=== PATIENT | female | born 1955 | race Caucasian/White ===

== ENCOUNTER 2024-04-19 16:23 | Inpatient (IN) | payer MEDICARE, SELFPAY ==
[2024-04-19] VITALS (33 sets, daily range): BP systolic 91–162; BP diastolic 52–98; BMI 39.4
--- NOTE | 2024-04-19 10:54 | ED.GENMED ---
History of Present Illness
General
Chief Complaint: Change in Mental Status
Time Seen by Provider: 04/19/24 10:53
History of Present Illness
History of Present Illness:
HPI: Currently, patient is an extremely poor historian therefore I spoke to EMS for history. EMS tells me that the called EMS due to change in mental status. She was tachycardic and became hypotensive despite IV fluids per EMS. The
patient is currently unknown historian.
EXAM:
GENERAL: The patient appears ill/septic, she is encephalopathic, at times she does moan in pain, she is rectally febrile at 103 Fahrenheit, she is tachycardic and mildly hypotensive
HEENT: Somewhat dry oral mucosa
CARDIOVASCULAR: No murmurs, tachycardic heart rate, regular rhythm, No chest wall tenderness
PULMONARY: No respiratory distress, breath sounds are clear and equal
ABDOMEN: Soft with no peritoneal signs, there is some distention noted, suprapubic tube draining small amount of dark yellow urine into the collection bag
NEUROLOGIC: Decreased strength all extremities, she is nonverbal, she has minimal response to sternal rub
PSYCHIATRIC: The patient is currently nonverbal and psych exam is not testable
EXTREMITIES: Nontender, no edema
SKIN: No rash, no lesions
TIME OF INITIAL ENCOUNTER: 11 AM
NUMBER AND COMPLEXITY OF PROBLEMS ADDRESSED AT THE ENCOUNTER
� Chronic conditions affecting care: MS, DVT, anxiety/depression, septic shock related to kidney stone
� Acute Exacerbation and/or Progression of Chronic Illness: This is an acute problem
� Differential Diagnosis includes: UTI, sepsis, bacteremia
AMOUNT AND/OR COMPLEXITY OF DATA TO BE REVIEWED AND ANALYZED
� I performed an independent evaluation of and my interpretation is:
EKG: Sinus 127, nonspecific T abnormality
CT: CT imaging is concerning for 1 cm proximal right ureteral stone along with evidence for pyelonephritis
X-rays: Chest x-ray unremarkable
Laboratory Studies: White count 25.8, VBG shows a pH of 7.43, lactic acid 4,
Other:
� Review of other/old records: I reviewed the discharge summary from this past fall. At that time the patient was treated for septic shock secondary to obstructive uropathy due to kidney stone; I reviewed records further, she
has grown Pseudomonas and Proteus both of which are sensitive to cefepime
� Clinical information was obtained by an independent historian: I spoke to EMS
� Prescriptions/Medications Considered but not given:
� Further testing considered but not performed:
RISK OF COMPLICATIONS AND/OR MORBIDITY OR MORTALITY OF PATIENT MANAGEMENT
� Social determinants of health affecting care: Lives at home
� Discussion with other providers: CT imaging reviewed with Dr. Suarez who recommends stent versus perc tube; hospitalist for admission at 3:30 PM
� Escalation of care including admission/observation vs risk of discharge considered: The patient was given IV fluids upon arrival as she was hypotensive and tachycardic for EMS. She has had septic shock related to UTI/stone�I
have ordered CT imaging of the abdomen pelvis. She has grown Pseudomonas and Proteus in urine in the past�both of which sensitive to cefepime. Will start broad-spectrum antibiotics. CT imaging reviewed with Dr. Suarez.
Phy Exam
Physical Exam
Physical Exam:
See HPI
Course
Orders/Labs/Results
Orders:
Orders
04/19/24 10:57
EKG [Electrocardiogram (*1)] Urgent
Reason for Study: Fatigue / Weakness
EKG- Treatment ONCE
04/19/24 10:58
0.9% Sodium Chloride 1000 ml [Nss] 1,000 ml IV BOLUS
04/19/24 10:59
CT Chest/abd/pel Wo Iv Cont Urgent
Reason For Exam: sepsis; ? recurrence of infected stone, hypoxia, fever, normal cxr
04/19/24 11:00
Electrocardiogram (*1) Urgent
Reason for Study: Other
Other Reason for Exam: sepsis
EKG- Treatment ONCE
CR Chest Portable - 1 View Urgent
Comment:
Reason For Exam: sepsis
Reason Study Needs to be Portable: Patient Unstable
04/19/24 11:22
Acetaminophen [Tylenol/Feverall] 650 mg RECTAL NOW STA
04/19/24 11:23
Complete Blood Count/With Diff Urgent
Comprehensive Metabolic Panel Urgent
Lactic Acid Q4H
Comment: CANCEL 2nd LACTIC ACID IF 1st LACTIC ACID IS LESS THAN 2
Venous Blood Gas Urgent
%Oxygen/Room Air: 2lpm
Blood Culture Q30M
MARILYNN Source: Blood/Venous
Specimen Description:
Blood Culture Q30M
MARILYNN Source: Blood/Venous
Specimen Description:
04/19/24 11:57
Urinalysis Reflex To Culture Urgent
Date Specimen was Collected: 04/19/24
Time Specimen was Collected: 11:55
Urine Microscopic Reflex Cult Urgent
Urine Culture Urgent
MARILYNN Source: U
Specimen Description:
Date Specimen was Collected: 04/19/24
Time Specimen was Collected: 11:55
04/19/24 12:05
0.9% Sodium Chloride 1000 ml [Nss] 1,000 ml IV BOLUS
04/19/24 12:06
0.9% Sodium Chloride 1000 ml [Nss] 1,000 ml IV BOLUS
04/19/24 12:19
Cefepime HCl [Maxipime] 1,000 mg IV NOW STA
04/19/24 12:29
Sterile Water [Sterile Water For Injection] 10 ml .ROUTE .STK-MED ONE
04/19/24 12:30
Sterile Water [Sterile Water For Injection] 20 ml .ROUTE .STK-MED
04/19/24 13:00
Vancomycin [Vancocin] 2,000 mg 0.9% Sodium Chloride 500 ml [Nss] 500 ml IV NOW
04/19/24 14:54
Lactic Acid Q4H
Comment: CANCEL 2nd LACTIC ACID IF 1st LACTIC ACID IS LESS THAN 2
04/19/24 15:45
0.9% Sodium Chloride 1000 ml [Nss] 1,000 ml IV 150 mls/hr
04/19/24 15:47
Hydrocortisone Sod Succinate [Solu-Cortef] 100 mg IV NOW STA
Abnormal Lab Results
04/19/24 04/19/24 04/19/24
11:23 11:57 14:54
WBC 25.8 H 10^3/uL
(4.8-10.8)
Hct 48.0 H %
(37.0-47.0)
MCHC 32.7 L g/dL
(33.0-37.0)
RDW 16.4 H %
(11.5-14.5)
MPV 11.5 H fL
(7.4-10.4)
Abs Immat Gran (auto) 0.3 H 10^3/uL
(0-0.05)
Absolute Neuts (auto) 21.1 H 10^3/uL
(1.4-6.5)
Absolute Monos (auto) 2.4 H 10^3/uL
(0.1-0.6)
Immature Gran % 1.2 H %
(0-0.5)
Neutrophils % 82.0 H %
(42.2-75.2)
Lymphocytes % 6.7 L %
(20.5-51.1)
VBG pO2 76 H mmHg
(30-50)
Carbon Dioxide 20 L mmol/L
(22-30)
BUN 32 H mg/dl
(7-17)
Creatinine 1.9 H mg/dL
(0.6-1.0)
Lactic Acid 4.4 H* mmol/L 4.0 H* mmol/L
(0.7-2.0) (0.7-2.0)
Calcium 10.8 H mg/dl
(8.4-10.2)
Total Bilirubin 3.6 H mg/dl
(0.2-1.3)
AST 60 H U/L
(14-36)
ALT 50 H U/L
(0-35)
Alkaline Phosphatase 212 H U/L
(38-126)
Albumin 3.0 L g/dl
(3.5-5.0)
Ur Occult Blood Reflex 2+ A
(Negative)
Urine Bilirubin 1+ A
(Negative)
Leukocyte Esterase Rfl 2+ A
(Negative)
Urine RBC 3-6 A /HPF
(0-2)
Urine Bacteria (Reflex) Moderate A
(Negative)
Urine Albumin (Reflex) 1+ A
(Neg - Trace)
04/19/24 11:23
04/19/24 11:23
Vital Signs
Initial and Last Documented VS:
Initial Vital Signs
BP
91/53
04/19/24 11:09
Last Documented Vital Signs
Temp Pulse Resp BP Pulse Ox
103.0 F H 115 24 106/61 95
04/19/24 11:10 04/19/24 15:15 04/19/24 15:15 04/19/24 15:00 04/19/24 15:15
*Critical Care Note
Total Time (30-74mins, 75-104mins- exclusive of procedures): 65min
comment:
The patient has evidence of severe sepsis. White count is over 25, lactic is 4, she was given 30 mL/kg fluid bolus, vital signs were very closely monitored. CT imaging concerning for infected ureteral stone. I emergently discussed case with
urology.
ED Attending Note
-
Portions of this chart may have been created with voice recognition software.� Occasional wrong word or��sound alike� substitutions may have occurred due to the inherent limitations of voice recognition software.
Discharge Plan
Departure
Patient Disposition: Admit
Date of Disposition: 04/19/24
Time of Disposition: 14:55
Presentation/result/management discussed w/ accepting /DO: Hospitalist
Discharge Problem:
Severe sepsis
Prescriptions:
No Action
citalopram 10 MG tablet
10 mg PO DAILY
tramadol 50 MG tablet
50 mg PO DAILYPRN PRN (Reason: Severe Pain)
potassium chloride [Klor-Con M20] 20 MEQ tablet,ER particles/crystals
20 meq PO BID
baclofen 10 MG tablet
5 mg PO TID
cranberry 450 mg Tablet
450 mg PO DAILY Qty: 0
furosemide 40 MG tablet
40 mg PO DAILY
thiamine HCl (vitamin B1) 100 MG tablet
100 mg PO DAILY
cyclobenzaprine 10 mg tablet
10 mg PO DAILYPRN PRN (Reason: MUSCLE SPASM)
methocarbamol 500 mg tablet
500 mg PO DAILYPRN PRN (Reason: muscle spasm, refractory to flexeril)
prednisone 10 mg tablet
10 mg PO DAILY
cholecalciferol (vitamin D3) [Vitamin D3] 50 mcg (2,000 unit) Tablet
50 mcg PO DAILY
diltiazem HCl [Cartia XT] 120 mg Capsule,Extended Release 24hr
120 mg PO DAILY
Zinc Oxide Diaper Cream 1-10 % Cream
1 applic TOPICAL DAILYPRN PRN (Reason: excoriation)
calcium carbonate [Calcium 600] 600 mg calcium (1,500 mg) Tablet
600 mg PO DAILY
aspirin 81 mg tablet,chewable
81 mg PO QPM
Referrals:
Caden Giles DO [Family Provider] -
Interventions
Interventions:
*Risk Screen - Suicide Last Done: 04/19/24 11:12
*General Assessment Last Done: 04/19/24 13:06
*Neglect/Abuse Screening Last Done: 04/19/24 11:12
ED- Fall Risk Assessment Last Done: 04/19/24 11:51
*ED COVID-19 Vaccine History Last Done: 04/19/24 11:46
ED- Neurological Assessment Last Done: 04/19/24 11:52
ED Swallowing Screen Last Done: 04/19/24 11:53
Discharge Date and Time
Print Language: GREEK
[2024-04-19] MEDS: TYLENOL/FEVERALL 650 MG RECTAL (11:29)
[2024-04-19] MEDS: NSS 1000 IV ×5 (11:29→23:21)
[2024-04-19 11:38] LABS: Venous Blood Gas B.E. 0 mmol/L (-4 to +4); Venous Blood Gas HCO3 23.9 mmol/L (22-27); Venous Blood Gas pCO2 36 mmHg (35-48); Venous Blood Gas pH 7.43 (7.32-7.43); Venous Blood Gas pO2 76 mmHg (30-50)
[2024-04-19 11:42] LABS: % Basophils 0.5 % (0-2); % Eosinophils 0.4 % (0-6); % Immature Granulocytes 1.2 % (0-0.5); % Lymphocytes 6.7 % (20.5-51.1); % Monocytes 9.2 % (1.7-9.3); Absolute Basophils 0.1 10^3/uL (0-0.2); Absolute Eosinophils 0.1 10^3/uL (0-0.7); Absolute Immature Granulocytes 0.3 10^3/uL (0-0.05); Absolute Lymphocytes 1.7 10^3/uL (1.2-3.4); Absolute Monocytes 2.4 10^3/uL (0.1-0.6); Absolute Neutrophils 21.1 10^3/uL (1.4-6.5); Hemoglobin 15.7 g/dL (12.0-16.0); Mean Corp Hgb Conc. 32.7 g/dL (33.0-37.0); Mean Corpuscular Hgb 29.3 pg (27.0-31.0); Mean Corpuscular Volume 89.6 fL (81.0-99.0); Mean Platelet Volume 11.5 fL (7.4-10.4); Nucleated Red Blood Cells % 0 %; Platelet Count 310 10^3/uL (130-400); Red Blood Cell Count 5.36 10^6/uL (4.20-5.40); Red Cell Dist. Width 16.4 % (11.5-14.5); White Blood Cell Count 25.8 10^3/uL (4.8-10.8)
[2024-04-19 12:03] LABS: Lactic Acid 4.4 mmol/L (0.7-2.0)
[2024-04-19 12:09] LABS: ALT (SGPT) 50 U/L (0-35); AST (SGOT) 60 U/L (14-36); Alkaline Phosphatase 212 U/L (38-126); Blood Urea Nitrogen 32 mg/dl (7-17); Calcium 10.8 mg/dl (8.4-10.2); Carbon Dioxide 20 mmol/L (22-30); Chloride 106 mmol/L (98-107); Glucose 98 mg/dl (70-99); Potassium 4.1 mmol/L (3.5-5.1); Sodium 143 mmol/L (135-145); Total Bilirubin 3.6 mg/dl (0.2-1.3); Total Protein 6.3 g/dl (6.3-8.2); eGFR 28.41
[2024-04-19 12:15] LABS: Urine Albumin 1+ (Neg - Trace); Urine Bilirubin 1+ (Negative); Urine Character Very Cloudy (Clear); Urine Color Amber; Urine Glucose Negative (Negative); Urine Ketone Negative (Negative); Urine Leukocyte 2+ (Negative); Urine Nitrite Negative (Negative); Urine Occult Blood 2+ (Negative); Urine Urobilinogen 1+ (Neg - 1+)
[2024-04-19] MEDS: MAXIPIME 1000 MG IV (12:32)
[2024-04-19 12:35] LABS: Urine Amorphous Seen; Urine Bacteria Moderate (Negative)
[2024-04-19] MEDS: VANCOCIN 540 MG IV (13:11)
--- NOTE | 2024-04-19 15:55 | CON.MD ---
Consultation - Medical
-
see dictated note
pt with MS/morbid obesity/hx of UTI and stones/chronic SP tube
here summer 2022 with complicated course- obstructing left ureteral stone- had stent placed
developed thigh bleed requiring gsu intervention
developed intractable hematuria- taken to OR- underwent removal of bladder neck stone/sp tube change/fulguration and stone removal
because of hematuria- chronic anticoagulation held
has been changing sp tube- no f/u with our office
now brought into ER spetic- CT shows right kidney completely full of stone with right upj and right ureteral stone with perinephric abscesses
also had stone in left prox ureter
pt critically ill
very difficult case due to her multiple comorbidities
discussed with /med team and IR
to be brought to OR for attempt at bilateral stent placement- then admit to ICU and consideration of IR drainage of fluid collections tomorrow
AGAIN HIGH RISK NATURE OF PROCEDURE/CONDITION/RISK OF REVIEWED
--- NOTE | 2024-04-19 16:02 | HPS.HSE ---
Addendum entered and electronically signed by Ping Lizarraga MD 04/19/24 16:30:
Paroxysmal atrial fibrillation--on cardia XT for rate control but no anticoagulation--consider cardiology consult if needed
Original Note:
Family Physician
-
Family Physician: Caden Giles
Chief Complaint
-
Fever/lethargy
History of Present Illness
Patient is a 68-year-old female who is essentially bedbound due to multiple sclerosis with chronic baclofen, chronic prednisone therapy with suprapubic catheter for neurogenic bladder had previous history of septic shock secondary to obstructive
uropathy back in July to August 2023. Patient history has been obtained through her as patient is not able to contribute to her history or review of systems. On Saturday prior to admission, patient complained of belly pain and left
flank pain. She denied fevers until this morning. Her stated that her normal temperature is around 96 �F and this morning she was 98.3 �F. She also had little output of 100 cc via her suprapubic tube. Also starting yesterday she did not
take any of her medications as she has been too lethargic. Patient was brought to the emergency department and found to have 103 �F temperature rectally along with elevated white count, elevated lactic acid and severe sepsis. CAT scan shows
obstructive uropathy with likely abscesses around the kidney. Patient is being taken to the operating room urgently with admission to ICU postoperatively.
Medical History
Past Medical History
Past Medical History: Reports Other
Additional Past Medical History:
Multiple sclerosis
Neurogenic bladder with suprapubic tube
Paroxysmal atrial fibrillation
Past Surgical History: Reports Other
Additional Past Surgical History:
Tubal ligation
Appendectomy
Suprapubic catheter placement
Attempted renal stone removal last admission in July to August 2023
Social History
Unable to obtain full social history at this time due to: Acuity
Tobacco: Non-smoker
Alcohol: None
Personal:
Living: With Family
Family History
Family History: Unable to Obtain
Allergies / Home Medications
Allergies reflects when Allergies were last updated in [employer].
Home Medications with original date entered in [employer]
Allergy/Medication List:
Allergies
Allergy/AdvReac Type Severity Reaction Status Date / Time
iodine Allergy Per NH Verified 04/19/24 11:46
moxifloxacin [From Avelox] Allergy Swelling Verified 04/19/24 11:46
Penicillins Allergy Unknown Verified 04/19/24 11:46
over 30
years ago,
tolerated
cefazolin
2021
Home Medications
baclofen 10 mg tablet 5 mg PO TID Muscle Spasms 03/13/22
citalopram 10 mg tablet 10 mg PO DAILY Mental Health/Anxiety 03/13/22
cranberry fruit 450 mg tablet (cranberry) 450 mg PO DAILY Supplement ##0 03/13/22
furosemide 40 mg tablet 40 mg PO DAILY Fluid Retention/Swelling 03/13/22
potassium chloride 20 mEq tablet,extended release(part/cryst) (Klor-Con M) 20 meq PO BID Electrolyte Repletion 03/13/22
thiamine HCl (vitamin B1) 100 mg tablet 100 mg PO DAILY Supplement 03/13/22
tramadol 50 mg tablet 50 mg PO DAILYPRN PRN Severe Pain 03/13/22
cholecalciferol (vitamin D3) 50 mcg (2,000 unit) tablet (Vitamin D3) 50 mcg PO DAILY Supplement 07/08/23
cyclobenzaprine 10 mg tablet 10 mg PO DAILYPRN PRN MUSCLE SPASM 07/08/23
methocarbamol 500 mg tablet 500 mg PO DAILYPRN PRN muscle spasm, refractory to flexeril 07/08/23
prednisone 10 mg tablet 10 mg PO DAILY Multiple Sclerosis 07/08/23
aspirin 81 mg chewable tablet 81 mg PO QPM 04/19/24
calcium carbonate (Calcium 600) 600 mg PO DAILY 04/19/24
diltiazem HCl 120 mg capsule,extended release 24 hr (Cartia XT) 120 mg PO DAILY 04/19/24
dimethicone 1 %-zinc oxide 10 %-vit A and D-aloe vera topical cream (Zinc Oxide Diaper Cream) 1 applic topical DAILYPRN PRN excoriation 04/19/24
Review of Systems
-
Unable to obtain full review of systems at this time due to: Acuity
Physical Exam
Vital Signs
Vital Signs
Temp Pulse Resp BP Pulse Ox
103.0 F H 115 24 106/61 95
04/19/24 11:10 04/19/24 15:15 04/19/24 15:15 04/19/24 15:00 04/19/24 15:15
Physical Exam
General: Well Developed, Well Nourished, Morbidly Obese and Other (Appears acutely ill)
HEENT: NormoCephalic, Anicteric and Oxygen
Respiratory: Clear; No Wheezes, Rales, Rhonchi or Crackles
Cardiac: S1/S2 and Regular Rhythm; No Murmur
GI: Soft, Non Distended and Tender (Diffusely tender without guarding or rebound); No Normal Bowel Sounds (Hypoactive)
Genito-urinary: Supratubic Tube
Musculoskeletal: No Clubbing, No Cyanosis and No Edema
Skin: Warm and Dry
Neuro: Awake; No Alert
Psych: Confused
Laboratory Results
-
04/19/24 11:23
04/19/24 11:23
Laboratory Results
Lactic Acid 4.0 mmol/L (0.7-2.0) H* 04/19/24 14:54
Total Bilirubin 3.6 mg/dl (0.2-1.3) H 04/19/24 11:23
AST 60 U/L (14-36) H 04/19/24 11:23
ALT 50 U/L (0-35) H 04/19/24 11:23
Alkaline Phosphatase 212 U/L (38-126) H 04/19/24 11:23
Impression/Plan
-
Patient is a 68-year-old female
Severe sepsis--not yet in septic shock however would not be surprised if develops hypotension given severity of illness--ADMIT to ICU--likely due to obstructing renal stones with abscesses noted on CAT scan--patient received 3 L normal saline sepsis
bolus dosing, IV vancomycin, IV cefepime in ED--consult urology/visual presentation manager/infectious disease--patient going to operating room for stent placement--if unsuccessful, will need bilateral percutaneous nephrostomy tubes, complicating factor is
patient's anatomy and stones noted on both right proximal ureter and left UPJ area--continue normal saline at 150 MLS per hour, serial lactic acids--meropenem 500 mg every 8 hours ID to be ordered--follow blood and urine cultures--stress dose
steroids
Acute kidney injury--likely due to obstructive uropathy--follow with IV fluids and relief of obstruction
Multiple sclerosis--patient on chronic prednisone therapy 10 mg p.o. daily--given severity of illness, this gave 100 mg of IV hydrocortisone as now dose in the ED followed by 50 mg IV every 8 hours moving forward
Neurogenic bladder--from multiple sclerosis--continue suprapubic tube
Mildly elevated liver function test--likely from fever, infection, medications--trend for now
DVT prophylaxis--subcu heparin
CODE STATUS-- full code
Total Critical Care Time 60 minutes. I was immediately available to the patient and staff. I personally examined, reviewed labs, diagnostic images/reports, interpretations, treatment plans, discussed patient care with other providers and family
or caregivers (if patient is unable to make decisions), entered orders as appropriate and documented the medical record.
[2024-04-19] MEDS: SOLU-CORTEF 100 MG IV (16:04)
--- NOTE | 2024-04-19 18:16 | W.IMMPOSTOP ---
Surgical Immed Post Op Note
-
Primary Surgeon:
dheeraj
Assisting Surgeon:
Pre-op Diagnosis:
bilateral ureteral stones/urosepsis
Post-op Diagnosis:
same
Procedure Performed:
cysto/left ureteral stent/ right retrograde and right ureteral stent/ sp tube exchange
Anesthesia Type:
gen
Specimen / Cultures:
none
Estimated Blood Loss:
2cc
Complications:
none
Operative Findings:
bladder trigone acutely inflammed- UO's were very difficult to visualize
able to first locate left side- placed stent
with probing- able to cannulate right UO with wire and advance open ended stent to mid ureter- retrograde showed some extrave at stone site- but then stone was pushed ack into UPJ- easily passed- large stent passed with efflux of purulent urine
sp tube exchanged
to pacu- then ICU
will assess for IR drainage of collections tomorrow
continue npo and hold any blood thinners
not with pt- will try and contact to update
--- NOTE | 2024-04-19 19:09 | SUR.PHASEI ---
Addendum entered by Poncho Whalen 04/19/24 19:11:
BP 126/98. No change in LOC. Eliot whalen CORPORATE TRAINING MANAGER.
Original Note:
1904 . Heart Rate from 110bpm to 170bpm. Dr Teresa informed. 1909 Herat rate dropped back to 110-121bpm. Dr teresa aware. Bp a
--- NOTE | 2024-04-19 19:47 | TRANSFER ---
Patient transferred to ICU, Transferred to bed with 4 assist. with Patient. Patient remains somnolent, opens eyes to command but no verbal responses. BP stable. Eliot Whalen RN BSN.
--- NOTE | 2024-04-19 19:47 | W.PN.SEPSIS ---
Sepsis
Vital Signs
Temp Pulse Resp BP Pulse Ox
97.8 F 111 22 131/74 94
04/19/24 19:35 04/19/24 19:41 04/19/24 19:41 04/19/24 19:20 04/19/24 19:41
Physical Exam
Physical Exam:
A focused exam was performed after fluid resuscitation.
Capillary Refill
Bilateral Upper Extremity:
Jeremy Time: Less than 3 sec
Bilateral Lower Extremity:
Jeremy Time: Less than 3 sec
Pulse Evaluation
Bilateral Radial:
Pulse Evaluation: Present
Bilateral Dorsalis Pedis:
Pulse Evaluation: Present
[2024-04-19 20:17] LABS: INR 1.29; PT 15.9 Sec (11.4-14.6)
[2024-04-19 20:18] LABS: APTT 37.7 Sec (23.4-35.0)
[2024-04-19 20:21] LABS: Blood Urea Nitrogen 30 mg/dl (7-17); Calcium 9.4 mg/dl (8.4-10.2); Carbon Dioxide 15 mmol/L (22-30); Chloride 113 mmol/L (98-107); Estimated Creatinine Clearance 40 ml/min; Glucose 110 mg/dl (70-99); Magnesium 1.7 mg/dl (1.6-2.3); Phosphorus 5.1 mg/dl (2.5-4.5); Potassium 3.9 mmol/L (3.5-5.1); Sodium 146 mmol/L (135-145); eGFR 37.72
[2024-04-19 20:26] LABS: Lactic Acid 5.7 mmol/L (0.7-2.0)
--- NOTE | 2024-04-19 20:37 | PTCARENOTE ---
Pt received from PACU. Lethargic, briefly arousable to loud verbal stimuli. Opens eyes, no nodding/following commands at this time. Breath sounds diminished, remains on 4L NC, pulse ox 94% and above. Sinus tach 110s-120s, BP stable. Suprapubic cath
in place, yellow/cloudy urine with small amount of sediment. Skin intact, dry. x3 PIVs in place, flushed and patent. Safe environment maintained, call arias within reach. updated at bedside.
--- NOTE | 2024-04-19 20:45 | CON.INTV ---
Consultation
Consultation Request
Date/Time Consultation Requested: 04-19-24
Date/Time Consultation Performed: 04-19-24
Requesting Provider: Hospitalist Vaishali
Performing Provider: Dr Robbins
Reason for Consultation: UTI
Medical History
-
Chief Complaint: fever
History of Present Illness:
Mrs Amber Bañuelos is a 68/W adm 04-19 with 3 d h/o abd and L flank pain and declining UO per suprapubic cath. 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
Brought to ER, 103 �F rectal temp, leukocytosis, lactacidemia, borderline low BP. CAP CT with basilar atelectasis, 1.0 cm obstructing calculus at R prox ureter, multiple R renal calculi, multiple R retroperitoneal fluid collections, nonobstructing
calculi at L ureteropelvic junction. Started on IVFs and empiric meropenem.
Seen by Urology, take to OR, received cysto/left ureteral stent/ right retrograde and right ureteral stent/ sp tube exchange under gral anesthesia, extubated p sx and brought to ICU
Seen at ICU, lethargic, normotensive not on pressor
Past Medical History
Past Medical History: Other (see A&P for PMH/PSH)
Social History
Tobacco: Non-smoker
Alcohol: None
Drug: None
Personal:
Living: With Family
Employment: Not Employed
Family History
Family History: Unable to Obtain
Allergies / Home Medications
Allergies
Allergy/AdvReac Type Severity Reaction Status Date / Time
iodine Allergy Per NH Verified 04/19/24 11:46
moxifloxacin [From Avelox] Allergy Swelling Verified 04/19/24 11:46
Penicillins Allergy Unknown Verified 04/19/24 11:46
over 30
years ago,
tolerated
cefazolin
2021
Home Medications
�Medication �Instructions �Recorded �Confirmed �Last Taken �Type
baclofen 10 mg tablet 5 mg PO TID Muscle Spasms 03/13/22 04/19/24 04/18/24 History
citalopram 10 mg tablet 10 mg PO DAILY Mental 03/13/22 04/19/24 04/18/24 History
Health/Anxiety
cranberry fruit 450 mg tablet 450 mg PO DAILY Supplement ##0 03/13/22 04/19/24 04/18/24 History
(cranberry)
furosemide 40 mg tablet 40 mg PO DAILY Fluid 03/13/22 04/19/24 04/18/24 History
Retention/Swelling
potassium chloride 20 mEq 20 meq PO BID Electrolyte Repletion 03/13/22 04/19/24 04/18/24 History
tablet,extended
release(part/cryst) (Klor-Con M)
thiamine HCl (vitamin B1) 100 mg 100 mg PO DAILY Supplement 03/13/22 04/19/24 04/18/24 History
tablet
tramadol 50 mg tablet 50 mg PO DAILYPRN PRN Severe Pain 03/13/22 04/19/24 Unknown History
cholecalciferol (vitamin D3) 50 50 mcg PO DAILY Supplement 07/08/23 04/19/24 04/18/24 History
mcg (2,000 unit) tablet (Vitamin
D3)
cyclobenzaprine 10 mg tablet 10 mg PO DAILYPRN PRN MUSCLE SPASM 07/08/23 04/19/24 Unknown History
methocarbamol 500 mg tablet 500 mg PO DAILYPRN PRN muscle 07/08/23 04/19/24 Unknown History
spasm, refractory to flexeril
prednisone 10 mg tablet 10 mg PO DAILY Multiple Sclerosis 07/08/23 04/19/24 04/18/24 History
aspirin 81 mg chewable tablet 81 mg PO QPM 04/19/24 04/19/24 04/17/24 History
calcium carbonate (Calcium 600) 600 mg PO DAILY 04/19/24 04/19/24 04/18/24 History
diltiazem HCl 120 mg 120 mg PO DAILY 04/19/24 04/19/24 04/18/24 History
capsule,extended release 24 hr
(Cartia XT)
dimethicone 1 %-zinc oxide 10 1 applic topical DAILYPRN PRN 04/19/24 04/19/24 Unknown History
%-vit A and D-aloe vera topical excoriation
cream (Zinc Oxide Diaper Cream)
Review of Systems
-
Unable to Obtain full review of systems at this time due to: Patient Intubation
Vitals / Labs / Diagnostic Testing
Vital Signs
Temp Pulse Resp BP Pulse Ox
97.8 F 120 23 103/55 95
04/19/24 19:35 04/19/24 19:46 04/19/24 19:46 04/19/24 19:46 04/19/24 19:46
Lab Data
04/19/24 19:56
Laboratory Results
04/19/24
19:56
PT 15.9 H
INR 1.29
APTT 37.7 H
Diagnostic Testing:
Physical Exam
-
HEENT: Normocephalic
Cardiovascular: Regular Rhythm, Murmur (n), Peripheral Edema (trace LISANDRA) and JVD (n)
Respiratory: Clear and Non-Labored Respirations
GI: Soft and Non Distended
Neurology: Other (lethargic)
Skin: Warm
General: Respiratory Distress (n)
Assessment
-
Assessment:
Mrs Amber Bañuelos is a 68/W adm 04-19 with 3 d h/o abd and L flank pain and declining UO per suprapubic cath. 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 Brought to ER, 103 �F rectal temp, leukocytosis, lactacidemia, borderline low BP.
CAP CT with basilar atelectasis, 1.0 cm obstructing calculus at R prox ureter, multiple R renal calculi, multiple R retroperitoneal fluid collections, nonobstructing calculi at L ureteropelvic junction. Started on IVFs and empiric meropenem. Seen by
Urology, take to OR, received cysto/left ureteral stent/ right retrograde and right ureteral stent/ sp tube exchange under gral anesthesia, extubated p sx and brought to ICU
Impression:
Urosepsis
Nephrolithiasis
Dehydration, hemoconcentration
TESSA, prerenal and postrenal
Lactacidemia
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
Multiple sclerosis, on baclofen and prednisone (10 mg qd), bedbound
Neurogenic bladder with suprapubic catheter
PAFib
Tubal ligation
Appendectomy
Nephrolithiasis, attempted renal stone removal July to August 2023
Urosepsis
Proteus mirab/Serr luz bacteriemia Jul 2023
Non-smoker
Morbid obesity
Plan:
O2 protocol as needed
Currently on O2 4L, POx 94%
Asp precs
IS as able
Continue IVFs
Did not require pressors
Monitor LA
Continue empiric meropenem
Wean off HC unless hypotension presents and refractory to IVFs and pressor
Urology following
DVT proph: sc hep
Oral diet once more stable
No critical care time charged today
Transition to telem by tomorrow if stable, will sign off then
D/w TIRE CHANGER
D/w ICU ASSEMBLER METAL BUILDING Laure
[2024-04-19] MEDS: STERILE WATER FOR INJECTION 10 ML IV (20:55)
[2024-04-19] MEDS: MERREM 500 MG IV (20:55)
[2024-04-19 21:06] LABS: Hematocrit 44.6 % (37.0-47.0); Hemoglobin 14.2 g/dL (12.0-16.0)
[2024-04-19] MEDS: CARDIZEM 10 MG IV (23:22)
[2024-04-19] MEDS: CARDIZEM 125 IV (23:22)
--- NOTE | 2024-04-19 23:46 | PTCARENOTE ---
Pt converted to afib, HR up to 170s. Started on cardizem gtt to maintain HR between 80-100.
[2024-04-19] MEDS: HEPARIN 5000 UNITS SC (23:59)
[2024-04-19] MEDS: SOLU-CORTEF 50 MG IV (23:59)
[2024-04-20] VITALS (41 sets, daily range): BP systolic 82–123; BP diastolic 46–73; BMI 39.5
[2024-04-20] MEDS: CARDIZEM 10 MG IV (00:03)
[2024-04-20 01:02] LABS: Lactic Acid 3.4 mmol/L (0.7-2.0)
--- NOTE | 2024-04-20 01:31 | PTCARENOTE ---
Pt remains confused and drowsy. Periods of restlessness. Only verbal response is 'okay' to all questions/statements. Pt does not follow commands at this time.
[2024-04-20 04:40] LABS: % Basophils 0.6 % (0-2); % Eosinophils 1.2 % (0-6); % Immature Granulocytes 1.1 % (0-0.5); % Lymphocytes 4.4 % (20.5-51.1); % Neutrophils 86.7 % (42.2-75.2); Absolute Basophils 0.1 10^3/uL (0-0.2); Absolute Eosinophils 0.3 10^3/uL (0-0.7); Absolute Immature Granulocytes 0.3 10^3/uL (0-0.05); Absolute Lymphocytes 1.1 10^3/uL (1.2-3.4); Absolute Monocytes 1.4 10^3/uL (0.1-0.6); Absolute Neutrophils 20.9 10^3/uL (1.4-6.5); Hematocrit 41.1 % (37.0-47.0); Hemoglobin 13.1 g/dL (12.0-16.0); Mean Corp Hgb Conc. 31.9 g/dL (33.0-37.0); Mean Corpuscular Hgb 29.5 pg (27.0-31.0); Mean Corpuscular Volume 92.6 fL (81.0-99.0); Mean Platelet Volume 11.5 fL (7.4-10.4); Nucleated Red Blood Cells % 0 %; Platelet Count 252 10^3/uL (130-400); Red Blood Cell Count 4.44 10^6/uL (4.20-5.40); Red Cell Dist. Width 16.4 % (11.5-14.5)
[2024-04-20 04:52] LABS: Lactic Acid 2.3 mmol/L (0.7-2.0)
[2024-04-20] MEDS: MERREM 500 MG IV (04:59)
[2024-04-20] MEDS: STERILE WATER FOR INJECTION 10 ML IV ×3 (04:59→21:56)
[2024-04-20 05:15] LABS: ALT (SGPT) 44 U/L (0-35); AST (SGOT) 46 U/L (14-36); Albumin 2.3 g/dl (3.5-5.0); Alkaline Phosphatase 163 U/L (38-126); Blood Urea Nitrogen 31 mg/dl (7-17); Calcium 9.4 mg/dl (8.4-10.2); Carbon Dioxide 21 mmol/L (22-30); Chloride 113 mmol/L (98-107); Estimated Creatinine Clearance 44 ml/min; Glucose 108 mg/dl (70-99); Magnesium 1.8 mg/dl (1.6-2.3); Potassium 3.3 mmol/L (3.5-5.1); Sodium 147 mmol/L (135-145); Total Bilirubin 2.9 mg/dl (0.2-1.3); Total Protein 5.3 g/dl (6.3-8.2); eGFR 40.98
[2024-04-20] MEDS: KCL 270 MEQ IV (06:14)
[2024-04-20] MEDS: CARDIZEM 125 IV (06:20)
--- NOTE | 2024-04-20 07:15 | W.PN.INTV ---
Today's Communication / Plan
Recommendations
Wean off cardizem gtt as tolerated
DHT placement, resume home cardiac meds
Remains on MRP IV, cultures reviewed
Uro following post surg management
Still remains lethargic, check ABG
PT/OT eventually
Assessment
-
Mrs Amber Bañuelos is a 68/W adm 05-19 with 3 d h/o abd and L flank pain and declining UO per suprapubic cath. 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 Brought to ER, 103 �F rectal temp, leukocytosis, lactacidemia, borderline low BP.
CAP CT with basilar atelectasis, 1.0 cm obstructing calculus at R prox ureter, multiple R renal calculi, multiple R retroperitoneal fluid collections, nonobstructing calculi at L ureteropelvic junction. Started on IVFs and empiric meropenem. Seen by
Urology, take to OR, received cysto/left ureteral stent/ right retrograde and right ureteral stent/ sp tube exchange under gral anesthesia, extubated p sx and brought to ICU
Impression:
Urosepsis
Nephrolithiasis
Dehydration, hemoconcentration
TESSA, prerenal and postrenal
Lactacidemia
Leukocytosis
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
Multiple sclerosis, on baclofen and prednisone (10 mg qd), bedbound
Neurogenic bladder with suprapubic catheter
PAFib
Tubal ligation
Appendectomy
Nephrolithiasis, attempted renal stone removal July to August 2023
Urosepsis
Proteus mirab/Serr luz bacteriemia Jul 2023
Non-smoker
Morbid obesity
Plan
O2 protocol as needed
Currently on O2 4L, POx 94%
Asp precs
IS as able
Continue IVFs
Did not require pressors, can d/c
Monitor LA
Cardizem required due to tachycardia
DHT placement, TFs
Resume home meds with intent to wean cardizem
Aspiration precautions
Urosepsis, urine culture pending
Continue empiric meropenem
Wean off HC unless hypotension presents and refractory to IVFs and pressor
Urology following
DVT proph: sc hep
Oral diet once more stable
D/w MULTI CRAFT MAINTENANCE TECHNICIAN
D/w ICU FAMILY COURT JUSTICE Laure
Diagnostic Data
Chest X-Ray: 04/19/24- 1. No radiographic evidence for pneumonia.
2. Mild scarring and subsegmental atelectasis in both lower lobes.
3. Mild to moderate elevation of the right hemidiaphragm.
CT Scan: CAP 04/19/24
Lungs - 1. Moderate right lower lobe and mild left lower lobe basilar subpleural airspace consolidations (probably atelectasis and less likely pneumonia). 2. Mild bilateral posterior pleural thickening.
3. Mild cardiomegaly.
AP- 1. 1.0 cm OBSTRUCTING CALCULUS in the RIGHT PROXIMAL URETER.
2. INNUMERABLE RIGHT INTRARENAL CALCULI.
3. Suspected ACUTE RIGHT PYELONEPHRITIS.
4. MULTIPLE FLUID COLLECTIONS in the RIGHT RETROPERITONEUM inferior to the right kidney (probably retroperitoneal abscesses given the history of fever and sepsis, although aseptic partially liquefied retroperitoneal hematomas are also possible).
5. Nonobstructing calculi in the left ureteropelvic junction.
6. Very severe diffuse hepatic steatosis and severe hepatomegaly.
7. Cholelithiasis.
8. Mild colonic diverticulosis.
9. Suprapubic urinary bladder catheter in place.
10. 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
11. Severe diffuse muscle atrophy.
12. SEVERE OSTEOPOROSIS with chronic vertebral body endplate insufficiency fractures in the lumbar spine.
Echo: 07/15/23- Normal left ventricular size, wall thickness and systolic function. LV ejection fraction is 60-65% by visual assessment. Diastolic function indeterminate. Normal right ventricular size. Grossly normal right ventricular systolic
function. Normal atria. No significant valve abnormalities are observed. IVC not visualized. No evidence of pulmonary hypertension. No prior study available for comparison.
PFT's:
Reports and relevant images were personally reviewed.
-----
Critical care time 35 mins -- this includes review of history, physical exam, medications, hemodynamic/ventilator parameters, laboratory data, imaging and discussion with house staff, pharmacy, respiratory therapy, resaw machine operator, and nursing.
Subjective Dataa
Subjective Data
Date of Service:
Date of Service: April 20, 2024
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
Subjective:
remains lethargic, minimally responsive
off pressors but requiring cardizem
Objective Data
Data Reviewed
Vital Signs / I&O / Oxygen:
Vital Signs
Temp Pulse Resp BP Pulse Ox
99.1 F 96 20 107/58 94
04/20/24 06:31 04/20/24 06:25 04/20/24 06:25 04/20/24 06:00 04/20/24 06:25
Intake and Output
04/19/24 04/20/24 04/21/24
06:59 06:59 06:59
Intake Total 1775 / 1775
Output Total 1200 / 1200
Balance 575 / 575
SaO2 94
Nasal Cannula flow liters per 4
minute
Physical Exam
General: Comfortable and Other (NAD, chronically ill appearing, obese)
HEENT: Normocephalic, Anicteric and Moist Mucous Membranes
Cardiovascular: S1-S2 and Regular Rhythm
Respiratory: Clear and Non-Labored Respirations
GI: Soft, Non Distended and Non Tender
Neurology: Lethargic (minimally responsive, grunts on tactile stim)
Skin: Warm, Dry and Good Color
Labs/Micro/Reports
Lab Data
04/20/24 04:28
04/20/24 04:28
Laboratory Results
04/19/24
19:56
PT 15.9 H
INR 1.29
APTT 37.7 H
--- NOTE | 2024-04-20 07:29 | W.PN.URO.CBU ---
Addendum entered and electronically signed by Babatunde Suarez Jr., MD 04/20/24 07:45:
updated on condition and plan
Original Note:
Today's Communication / Plan
-
continue iv antibx/await cx's
continue sp tube
hold blood thinners
plan to re-image tomorrow and review possible IR drainage of any fluid collections
Assessment / Plan
-
urosepsis with huge right side stone burden including right upj and ureteral stone and small left ureteral stones
perinephric fluid collections/possible abscess vs forniceal rupture
neurogenic bladder with chronic sp tube and cystitis
s/p bilateral stent placement
pt is off pressors and other parameters seem improved
would continue current medical care and plan to re-image with noncontrast CT tomorrow with hopeful further medical stabilization to see if IR drainage is necessary as this could be challenging given location of fluid and pt's body habitus
I also discussed with med team last night that the last time pt was put on anti-coagulants- she developed a groin bleed and had intractable hematuria so would not rec at this time- i had cancelled order but this was restarted by bottom buffer at some point-
will again stop for now
overall situation is difficult
Diagnosis
-
Date of Service: April 20, 2024
-
Patient Diagnosis:
urosepsis
obstructing stones
perinephric fluid collections/abscess
Post Op Day:
cysto/bilateral ureteral stents/sp tube exchange 04/19
Subjective
-
pt not conversant
is off pressors
no temps
wbc up as expected
urine ninfa
cx's pending
went into rapid afib last night- now in sinus on dilt drip
Objective
-
Vital Signs
Temp Pulse Resp BP Pulse Ox
99.1 F 96 20 107/58 94
04/20/24 06:31 04/20/24 06:25 04/20/24 06:25 04/20/24 06:00 04/20/24 06:25
Intake and Output
04/19/24 04/20/24 04/21/24
06:59 06:59 06:59
Intake Total 1775 / 1775
Output Total 1200 / 1200
Balance 575 / 575
Intake:
IV fluids (Total) 1775 / 1775
NS 1670 / 1670
cardizem 105 / 105
Output:
Urine, Lopez 850 / 850
Suprapubic output 350 / 350
Laboratory Results
04/20/24 04:28
04/20/24 04:28
Review of Systems
-
Unable to obtain full review of systems at this time due to: Other (pt only moaning)
Physical Exam
-
General - ill appearing
Abdomen -obese/tender to deep palpation/ sp tube in place
Genitalia - some vaginal bleeding
[2024-04-20] MEDS: SOLU-CORTEF 50 MG IV (07:47)
[2024-04-20] MEDS: PROTONIX IV 40 MG IV (07:48)
[2024-04-20] MEDS: NSS (PRESERVATIVE FREE) 10 ML IV (07:48)
--- NOTE | 2024-04-20 08:59 | PTCARENOTE ---
report received, assessments per work list. patient opens eyes, not following commands or speaking. moans occasionally. remains lethargic. moves arms with purpose. monitor sinus tach with pvc's. Cardizem gtt per work list. lungs with coarse
diminished breath sounds. oxygen@4 liters. abdomen obese, hypoactive bowel sounds. supra pubic cath in place draining ninfa greenish urine with increased sediment. urology, hospitalist at bedside. orders received. VAT team in, placed midline right
upper arm. skin very dry and flaking. care provided
--- NOTE | 2024-04-20 09:04 | CM ---
Addendum entered by Natty Marquez 04/20/24 09:06:
Currently patient caregiver has been primary caregiver and has no VN supports at this time. Patient lives with in a [address] condo with first floor set up. Patient spoke with CM via phone and confirmed Dr. Marin is the PCP and
[facility]ap[facility] on [address] in [place]. Patient states that patient was at [facility] that he did not feel that patient had any rehab due to the start of COVID. Patient and do not want patient to go to SNF and their plan is for
home with VN. CM will continue to follow for discharge planning needs.
Plan; home with VN; watch for needs
Original Note:
Patient with staff for [facility]. CM will return to complete assessment.
[2024-04-20 09:18] LABS: Lactic Acid 1.8 mmol/L (0.7-2.0)
--- NOTE | 2024-04-20 09:35 | W.PN.HOSP.TC ---
Today's Communication/Plan
-
cont IVF
cont ABX
apprec all consultants' notes
Assessment / Plan
Assessment / Plan
Patient is a 68-year-old female
Severe sepsis--not yet in septic shock however would not be surprised if develops hypotension given severity of illness-- due to obstructing renal stones with abscesses noted on CAT scan--patient received 3 L normal saline sepsis bolus dosing, IV
vancomycin, IV cefepime in ED--apprec urology/slab conditioner supervisor/infectious disease--s/p stent placement in OR--still may need bilateral percutaneous nephrostomy tubes--continue normal saline at 150 MLS per hour, serial lactic acids--meropenem 500 mg every
8 hours--follow blood and urine cultures--wean stress dose steroids as able
Acute kidney injury--likely due to obstructive uropathy--follow with IV fluids and relief of obstruction
paroxysmal afib--on cardizem drip--may need cards eval
hypokalemia--replete
Multiple sclerosis--patient on chronic prednisone therapy 10 mg p.o. daily--given severity of illness, this gave 100 mg of IV hydrocortisone as now dose in the ED followed by 50 mg IV every 8 hours, wean as able
Neurogenic bladder--from multiple sclerosis--continue suprapubic tube
Mildly elevated liver function test--likely from fever, infection, medications--trend for now
DVT prophylaxis--NO anticoagulants--SCDs
CODE STATUS-- full code
Total Critical Care Time 34 minutes. I was immediately available to the patient and staff. I personally examined, reviewed labs, diagnostic images/reports, interpretations, treatment plans, discussed patient care with other providers and family
or caregivers (if patient is unable to make decisions), entered orders as appropriate and documented the medical record.
Anticipated Discharge: > 48 hours
Subjective/Interval History
-
Date of Service: April 20, 2024
Patient still nonverbal
Objective Data
-
Labs:
Laboratory Results
04/20/24
04:28
WBC 24.0 H
Hgb 13.1
Hct 41.1
Plt Count 252
Sodium 147 H
Potassium 3.3 L
Chloride 113 H
Carbon Dioxide 21 L
BUN 31 H
Creatinine 1.4 H
Glucose 108 H
Calcium 9.4
Total Bilirubin 2.9 H
AST 46 H
ALT 44 H
Alkaline Phosphatase 163 H
Vital Signs:
max temp for 24 hours
04/19/24
11:10
Temp 103.0 F H
Vital Signs
Temp Pulse Resp BP Pulse Ox
99.1 F 92 17 98/55 95
04/20/24 06:31 04/20/24 09:20 04/20/24 09:20 04/20/24 09:00 04/20/24 09:20
I&O
04/19/24 04/20/24 04/21/24
06:59 06:59 06:59
Intake Total 1775 / 1775
Output Total 1200 / 1200
Balance 575 / 575
Review of Systems
-
Unable to obtain full review of systems at this time due to: Acuity and Patient Non-verbal
Physical Exam
-
General: Well Developed, Well Nourished, No Apparent Distress and Morbidly Obese
HEENT: Normocephalic, Atraumatic and Other
Respiratory: Clear to Auscultation; Negative Wheezes or Rhonchi
Cardiac: Regular Rhythm and S1/S2; Negative Murmur
GI: Soft, Nontender, Nondistended and Normal Bowel Sounds
Genito-urinary: Supra Pubic Tube
Musculoskeletal: No Clubbing, No Cyanosis and No Edema
Neuro: Awake and Alert
[2024-04-20 10:10] LABS: HCO3 21.1 mmol/L (21-28); O2 Saturation % 97.9 % (94-98); PCO2 42 mmHg (32-35); PO2 77 mmHg (83-108); pH 7.31 (7.35-7.45)
[2024-04-20] MEDS: D5/0.45%NACL 1000 IV ×2 (10:38→20:26)
--- NOTE | 2024-04-20 10:44 | PTCARENOTE ---
cirilo inserted right nare with assistance of Suyapa NOONAN. placement verified with air auscultation. abdominal xray taken. read pending
[2024-04-20] MEDS: NSS IV (10:45)
--- NOTE | 2024-04-20 11:00 | CON.CAR ---
Addendum entered and electronically signed by Ramon Ballard MD 04/20/24 17:29:
I saw and examined the patient.
The ELECTRICAL ENGINEERING DESIGNER's note was reviewed and I agree with the note.
Comment: She has known PAF, earlier this admit had 1 hr of AFib. Cannot anticoagulate at this time. Will use dilt IR (via tube) (at home Dilt ER 120 a day).
Original Note:
Consultation
Consultation Request
Date/Time Consultation Requested: 04/20/24 1008
Date/Time Consultation Performed: 04/20/24 1100
Requesting Provider: Dr. Lizarraga
Performing Provider: Poonam SWANN for Dr. Ballard
Reason for Consultation: AFIB with RVR
Medical History
-
Chief Complaint: fever, lethargy
History of Present Illness:
68 y/o female with multiple sclerosis, neurogenic bladder with suprapubic catheter, obesity, and PAF (not on OAC due to bleeding complications) who presented from OR with lethargy and fever. She had back and abdominal pain as well per her .
She was seen to have fever, elevated white count, and obstructive uropathy on imaging. She was diagnosed with urosepsis with significant stone burden and is s/p stent placement b/l. Perinephric abscess also suspected. Patient on IV abx. We are
consulted since patient had AFIB with RVR last night for about 1 hour. She is back in . She is lethargic, but in no distress at the time of my assessment. NG tube placed, but appropriate placement not yet confirmed so she remains NPO at present.
She is on diltiazem drip. She is normally on diltiazem 120 mg daily, but did not take it since Saturday AM due to lethargy.
Past Medical History
Past Medical History: Arrhythmias and Other (as above)
Social History
Personal:
Living: [facility]
Family History
Family History: Reviewed & Not Pertinent
Allergies / Home Medications
Allergy/AdvReac Type Severity Reaction Status Date / Time
iodine Allergy Per NH Verified 04/19/24 11:46
moxifloxacin [From Avelox] Allergy Swelling Verified 04/19/24 11:46
Penicillins Allergy Unknown Verified 04/19/24 11:46
over 30
years ago,
tolerated
cefazolin
2021
�Medication �Instructions �Recorded �Confirmed �Type
baclofen 10 mg tablet 5 mg PO TID Muscle Spasms 03/13/22 04/19/24 History
citalopram 10 mg tablet 10 mg PO DAILY Mental 03/13/22 04/19/24 History
Health/Anxiety
cranberry fruit 450 mg tablet 450 mg PO DAILY Supplement ##0 03/13/22 04/19/24 History
(cranberry)
furosemide 40 mg tablet 40 mg PO DAILY Fluid 03/13/22 04/19/24 History
Retention/Swelling
potassium chloride 20 mEq 20 meq PO BID Electrolyte Repletion 03/13/22 04/19/24 History
tablet,extended
release(part/cryst) (Klor-Con M)
thiamine HCl (vitamin B1) 100 mg 100 mg PO DAILY Supplement 03/13/22 04/19/24 History
tablet
tramadol 50 mg tablet 50 mg PO DAILYPRN PRN Severe Pain 03/13/22 04/19/24 History
cholecalciferol (vitamin D3) 50 50 mcg PO DAILY Supplement 07/08/23 04/19/24 History
mcg (2,000 unit) tablet (Vitamin
D3)
cyclobenzaprine 10 mg tablet 10 mg PO DAILYPRN PRN MUSCLE SPASM 07/08/23 04/19/24 History
methocarbamol 500 mg tablet 500 mg PO DAILYPRN PRN muscle 07/08/23 04/19/24 History
spasm, refractory to flexeril
prednisone 10 mg tablet 10 mg PO DAILY Multiple Sclerosis 07/08/23 04/19/24 History
aspirin 81 mg chewable tablet 81 mg PO QPM 04/19/24 04/19/24 History
calcium carbonate (Calcium 600) 600 mg PO DAILY 04/19/24 04/19/24 History
diltiazem HCl 120 mg 120 mg PO DAILY 04/19/24 04/19/24 History
capsule,extended release 24 hr
(Cartia XT)
dimethicone 1 %-zinc oxide 10 1 applic topical DAILYPRN PRN 04/19/24 04/19/24 History
%-vit A and D-aloe vera topical excoriation
cream (Zinc Oxide Diaper Cream)
Review of Systems
-
Unable to obtain full review of systems at this time due to: Other (patient lethargic)
History Source: Family () and Other (chart)
Constitutional: Fever
Abdomen/GI: Abdominal Pain
Musculoskeletal: Other (back pain)
Neurological: Other (lethargy)
Physical Exam
Vital Signs
Temp Pulse Resp BP Pulse Ox
100.3 F 99 19 109/58 94
04/20/24 08:00 04/20/24 10:15 04/20/24 10:15 04/20/24 10:03 04/20/24 10:15
Lab Results
04/20/24 04:28
04/20/24 04:28
Physical Exam
General: Well Developed, Well Nourished and No Apparent Distress
HEENT: Normocephalic and Anicteric
Respiratory: Clear, Non Labored Respirations and Other (on O2 by NC)
Cardiac: Regular Rhythm
Musculoskeletal: Edema (BLE edema, chronic per )
Skin: Warm and Dry
Neuro: Awake (awakens by opening eyes to voice, but patient lethargic)
Psych: Calm
Impression / Plan
-
Sepsis (severe), obstructive stones with abscess:
-on IV abx
-ID consulted
-s/p b/l stenting by urology
AFIB, paroxysmal: noted in past, RVR in 130's
-in setting of acute illness
-back in SR
-continue IV diltiazem for now, which requires intensive monitoring
-when patient can get PO meds (when NG tube placement acceptable), transition from IV diltiazem to PO (Cardizem 30 mg QID)
-[id number] score is at least 2 for age and female (possibly 3 since question of CHF in the past as well, but echo fairly normal and does not appear volume overloaded to assessment- on lasix as OP, with chronic BLE edema), but not on OAC due to
previous bleeding issues (including recurrent hematuria, and not recommended by urology).
Multiple sclerosis:
-on steroids
-per primary
Neurogenic bladder:
-suprapubic tube in place
-uro following
Hypokalemia:
-being replaced
-follow
Data Reviewed
-
EKG: Tracing Personally Visualized and interpreted (ST 137 BPM, nonspecific t abnormality)
Radiology: Report Reviewed by me (CXR: No radiographic evidence for pneumonia. 2. Mild scarring and subsegmental atelectasis in both lower lobes. 3. Mild to moderate elevation of the right hemidiaphragm.)
Medical Tests (Nuc Med, Echo etc): Report Reviewed by me (Echo 07/15/23: EF is 60-65% by visual assessment. Diastolic function indeterminate. Normal right ventricular size. Grossly normal right ventricular systolic function. No significant valve
abnormalities are observed.)
Labs: Labs Reviewed by me
--- NOTE | 2024-04-20 11:35 | CON.ID ---
Consultation
-
Date/Time Consultation Requested: April 19, 2024 1826
Date/Time Consultation Performed: April 20, 2024 1135
Requesting Provider: Dr. Ping Lizarraga
Performing Provider: Dr. Haylee Brown
Reason for Consultation: Bacteremia
Chief Complaint / Past History
Chief Complaint
Weakness and flank pain
History of Present Illness
History obtained from her at bedside since she is currently very lethargic and unable to provide any history. She is a 60-year-old female with multiple sclerosis, neurogenic bladder with chronic suprapubic catheter changed almost every
week, paroxysmal atrial fibrillation, nephrolithiasis with history of obstructive uropathy who presented to the hospital April 19 due to extreme lethargy. Per on Saturday she was complaining of abdominal pain and bilateral flank pain. She then
became more lethargic on Saturday. Her urine output was decreased. Temperature was low. He therefore sent her to the hospital. Patient was febrile temperature 103. White count 25.8. Lactic acid 4.4. She was in TESSA. CAT scan abdomen pelvis
shows obstructing right renal stones with perinephric abscesses, nonobstructing left ureter stones at the UPJ. She was taken to the OR emergently status post left ureter stent placement, and right ureter stent placement with purulent urine noted,
as well as change of suprapubic catheter. Her admission blood culture is positive for Proteus. Urine culture growing Enterococcus and gram-negative avery. Hospital course complicated by atrial fibrillation with RVR.
Past History
Additional Past Medical History:
Multiple sclerosis chronic prednisone 5mg
Neurogenic bladder with chronic suprapubic catheter
Paroxysmal atrial fibrillation
Nephrolithiasis with history of obstructive uropathy
Class III obesity BMI 39.5
Appendectomy
Tubal ligation
Left groin infected hematoma I+D
Allergy History:
iodine Allergy (Verified 04/19/24 11:46)
Per [facility]
moxifloxacin [From Avelox] Allergy (Verified 04/19/24 11:46)
Swelling
Penicillins Allergy (Verified 04/19/24 11:46)
Unknown over 30 years ago, tolerated cefazolin 2021
Medications Reviewed: Yes
Current Antibiotics:
s/p Vancomycin/cefepime
Meropenem d2
Social History
Tobacco: Non-Smoker
Alcohol: None
Drug: None
Personal:
Living: With Family
Family History
Family History: Not Pertinent
Review of Systems
Review of Systems
Unable to obtain as patient currently minimally responsive.
Vital Signs
Temp Pulse Resp BP Pulse Ox
100.3 F 90 15 104/59 95
04/20/24 08:00 04/20/24 11:15 04/20/24 11:15 04/20/24 11:00 04/20/24 11:15
Selected Entries
04/19/24
11:10
Temp 103.0 F H
Physical Exam
Physical Exam
Constitutional: Acutely Ill and Obese
Eyes: No Conjunctival Hemorrhage
Cardiovascular: Irregular Rate and S1/S2
Pulmonary: Clear (anteriorly)
Gastrointestinal: Soft, Non Tender and Non Distended
Genito-Urinary: Turbid Urine (SPC) and Other
Extremities: Edema (2+ bilaterally)
Skin: Dry
Neurological: Other (lethargic)
Lab / Diagnostic Study Results
04/20/24 04:28
04/20/24 04:28
Abs Immat Gran (auto) 0.3 10^3/uL (0-0.05) H 04/20/24 04:28
Absolute Neuts (auto) 20.9 10^3/uL (1.4-6.5) H 04/20/24 04:28
Absolute Lymphs (auto) 1.1 10^3/uL (1.2-3.4) L 04/20/24 04:28
Absolute Monos (auto) 1.4 10^3/uL (0.1-0.6) H 04/20/24 04:28
Absolute Basos (auto) 0.1 10^3/uL (0-0.2) 04/20/24 04:28
Immature Gran % 1.1 % (0-0.5) H 04/20/24 04:28
Neutrophils % 86.7 % (42.2-75.2) H 04/20/24 04:28
Lymphocytes % 4.4 % (20.5-51.1) L 04/20/24 04:28
Monocytes % 6.0 % (1.7-9.3) 04/20/24 04:28
Eosinophils % 1.2 % (0-6) 04/20/24 04:28
Basophils % 0.6 % (0-2) 04/20/24 04:28
PT 15.9 Sec (11.4-14.6) H 04/19/24 19:56
INR 1.29 04/19/24 19:56
Lactic Acid Cancelled 04/20/24 12:20
Ur Squamous Epith Cells 3-5 /LPF (Few) 04/19/24 11:57
Microbiology Results
Micro:
04/19/24 11:23 Blood Culture - Preliminary
Blood/Venous No Growth in 24 hours- Final report to follow
04/19/24 11:23 Blood Culture - Preliminary
Blood/Venous Proteus species
Gram Stain - Preliminary
04/19/24 11:57 Urine Culture - Preliminary
Urine Gram negative bacilli
Enterococcus species
04/19/24 CT c/a/p wo: 1.0 cm OBSTRUCTING CALCULUS in the RIGHT PROXIMAL URETER. Suspected ACUTE RIGHT PYELONEPHRITIS. MULTIPLE FLUID COLLECTIONS in the RIGHT RETROPERITONEUM inferior to the right kidney (probably retroperitoneal abscesses given the
history of fever and sepsis, although aseptic partially liquefied retroperitoneal hematomas are also possible). Nonobstructing calculi in the left ureteropelvic junction.
Assessment / Plan
# Complicated UTI with right obstructive uropathy and perinephric abscesses
# Proteus bacteremia, source
# Severe sepsis
# Afib with RVR
# PCN allergy, tolerates cephalosporin
# Neurogenic bladder with SPC
# Multiple sclerosis on chronic low dose prednisone
-04/19 s/p bilateral ureter stents, SPC exchange
- Ucx: GNR, Enterococcus
- Bcx 1 of 2 sets: Proteus
- Repeat blood cx's in am
- To drain perinephric abscesses
- DC meropenem.
-Start Vancomycin and cefepime.
- Monitor temps, wbc.
--- NOTE | 2024-04-20 11:55 | PHA.VAN.IN ---
Assessment
- Assessment
Renal Function: Appears elevated from baseline (SCR 1.9-->1.5-->1.4 vs ~0.5)
Concomitant Antimicrobials: cefepime
Plan
- Plan
Initial / Loading Dose: 2000mg - 04/19 13:11
Maintenance Regimen: dosing by level - re-dose today with 1250mg x1
Monitoring: random 04/21 06
Pharmacokinetics Vancomycin I
- -
Patient Age: 68
Patient Sex: Female
Vancomycin Day #: 1
Indication: Genito-Urinary Tract
Requesting Provider: Dr. Brown
Pertinent Antimicrobial Allergies:
moxifloxacin - swelling; tolerates ciprofloxacin
penicillins - unknown, > 30 y/a, tolerated cefazolin
Height / Weight:
Height 5 ft 3 in
Actual Weight 101.1 kg
Pertinent Past Medical History: BMI ~40, MS
- Vital Signs / Lab Results
Temp Pulse Resp BP Pulse Ox
100.3 F 90 15 104/59 95
04/20/24 08:00 04/20/24 11:15 04/20/24 11:15 04/20/24 11:00 04/20/24 11:15
Lab Results - Hematology
04/19/24 04/20/24
11:23 04:28
WBC 25.8 H 24.0 H
Lab Results - Chemistry
04/19/24 04/19/24 04/20/24
11:23 19:56 04:28
BUN 32 H 30 H 31 H
Creatinine 1.9 H 1.5 H 1.4 H
Estimated Creat Clear 40 44
Albumin 3.0 L 2.3 L
04/19/24 04/19/24 04/19/24
11:23 14:54 19:56
Lactic Acid 4.4 H* 4.0 H* 5.7 H*
04/20/24 04/20/2424
00:31 04:28 08:49
Lactic Acid 3.4 H 2.3 H 1.8
04/20/24
12:20
Lactic Acid Cancelled
Lab Results - Urine
04/19/24
11:57
Urine Nitrite (Reflex) Negative
Leukocyte Esterase Rfl 2+ A
Urine WBC (Reflex) 6-10
Ur Squamous Epith Cells 3-5
Urine Bacteria (Reflex) Moderate A
Microbiology Results
04/19/24 11:23 Blood Culture - Preliminary
Blood/Venous No Growth in 24 hours- Final report to follow
04/19/24 11:23 Blood Culture - Preliminary
Blood/Venous Proteus species
Gram Stain - Preliminary
04/19/24 11:57 Urine Culture - Preliminary
Urine Gram negative bacilli
Enterococcus species
--- NOTE | 2024-04-20 12:43 | PTCARENOTE ---
abdominal xray post Dobbhoff readjustment confirms placement. deputy probation officer updated with availability enteral access. remains lethargic but less so than initial assessment. Cardizem adjustment per work list. spouse at bedside, updated
[2024-04-20] MEDS: MAXIPIME 1000 MG IV ×2 (13:13→21:55)
[2024-04-20] MEDS: CARDIZEM 60 MG TUBE ×3 (13:13→21:55)
[2024-04-20] MEDS: VANCOCIN 275 MG IV (13:22)
--- NOTE | 2024-04-20 15:27 | PTCARENOTE ---
patient reassessed. more easily arousable. remains nonverbal but able to follow simple commands and squeeze hands. moist weak nonproductive cough, required oral pharyngeal suction for large amount thick white suptum. oral care frequently provided,
tongue coated with large amount old dry mucous
[2024-04-20] MEDS: LIORESAL 5 MG TUBE ×2 (16:00→21:55)
--- NOTE | 2024-04-20 20:00 | PTCARENOTE ---
Patient received in bed, eyes closed, arouses to verbal stimuli, nods head appropriately. NSR on monitor, afebrile, blood pressure as documented. palpable pulses, +2 edema to lower extremities, knee high SCDs maintained. Lungs diminished, pulse ox
94% on 1L. DHT in right nare, abdomen obese with positive bowel sounds. SPT draining ninfa urine with sediment. Skin dry and flaky. PIVs x3, right upper arm midline with IVF infusing as ordered Turned and repositioned
[2024-04-21] VITALS (27 sets, daily range): BP systolic 79–129; BP diastolic 44–73; BMI 40.9
--- NOTE | 2024-04-21 00:12 | PTCARENOTE ---
Patient reassessed, no changes, turned and repositioned,
--- NOTE | 2024-04-21 04:00 | PTCARENOTE ---
Patient reassessed, no changes in assessment
[2024-04-21] MEDS: D5/0.45%NACL 1000 IV ×3 (04:07→20:43)
[2024-04-21 05:51] LABS: Hematocrit 41.6 % (37.0-47.0); Hemoglobin 12.6 g/dL (12.0-16.0); Mean Corp Hgb Conc. 30.3 g/dL (33.0-37.0); Mean Corpuscular Volume 95.6 fL (81.0-99.0); Mean Platelet Volume 12.2 fL (7.4-10.4); Platelet Count 177 10^3/uL (130-400); Red Blood Cell Count 4.35 10^6/uL (4.20-5.40); Red Cell Dist. Width 16.6 % (11.5-14.5); White Blood Cell Count 16.9 10^3/uL (4.8-10.8)
[2024-04-21] MEDS: MAXIPIME 1000 MG IV ×3 (06:04→20:43)
[2024-04-21] MEDS: STERILE WATER FOR INJECTION 10 ML IV ×3 (06:04→20:43)
[2024-04-21 06:07] LABS: ALT (SGPT) 39 U/L (0-35); AST (SGOT) 63 U/L (14-36); Albumin 2.3 g/dl (3.5-5.0); Alkaline Phosphatase 170 U/L (38-126); Blood Urea Nitrogen 28 mg/dl (7-17); Calcium 10.1 mg/dl (8.4-10.2); Carbon Dioxide 18 mmol/L (22-30); Chloride 117 mmol/L (98-107); Estimated Creatinine Clearance 76 ml/min; Glucose 109 mg/dl (70-99); Potassium 3.4 mmol/L (3.5-5.1); Sodium 146 mmol/L (135-145); Total Bilirubin 2.3 mg/dl (0.2-1.3); Total Protein 5.3 g/dl (6.3-8.2); eGFR > 60.00
[2024-04-21 06:11] LABS: Vancomycin Random 19.1 ug/ml
[2024-04-21] MEDS: KCL 160 MEQ IV (06:39)
--- NOTE | 2024-04-21 07:15 | W.PN.INTV ---
Today's Communication / Plan
Recommendations
remains lethargic, but remains off pressors
abx continued, ID following
NPO after MN, CT planning in AM
urology following for potential further intervention
can likely transfer to tele if otherwise doing well
Assessment
-
Mrs Amber Bañuelos is a 68/W adm 05-19 with 3 d h/o abd and L flank pain and declining UO per suprapubic cath. Lethargic since d [employer], did not take any of her oral meds. Brought to ER, 103 �F rectal temp, leukocytosis, lactacidemia, borderline low BP.
CAP CT with basilar atelectasis, 1.0 cm obstructing calculus at R prox ureter, multiple R renal calculi, multiple R retroperitoneal fluid collections, nonobstructing calculi at L ureteropelvic junction. Started on IVFs and empiric meropenem. Seen by
Urology, take to OR, received cysto/left ureteral stent/ right retrograde and right ureteral stent/ sp tube exchange under gral anesthesia, extubated p sx and brought to ICU
Impression:
Urosepsis
Nephrolithiasis
Dehydration, hemoconcentration
TESSA, prerenal and postrenal
Lactacidemia
Leukocytosis
Lethargy
Conditions [employer]:
Multiple sclerosis, on baclofen and prednisone (10 mg qd), bedbound
Neurogenic bladder with suprapubic catheter
PAFib
Tubal ligation
Appendectomy
Nephrolithiasis, attempted renal stone removal July to August 2023
Urosepsis
Proteus mirab/Serr luz bacteriemia Jul 2023
Non-smoker
Morbid obesity
Plan
O2 protocol as needed
Currently on O2 4L, POx 94%
Asp precs
IS as able
Continue IVFs
Did not require pressors, can d/c
Monitor LA
Cardizem required due to tachycardia
Wean off HC, transitioned back to home prednisone dose
Stable on supplemental O2
ABG without hypercarbia
DHT placement, TFs
Resume home meds with intent to wean cardizem
Aspiration precautions
Urosepsis, urine culture GNB, enterococcus
Proteus species in blood
Continue empiric meropenem
Urology following
Possible NPO and procedure planning tomorrow
DVT proph: sc hep
Oral diet once more stable
Can likely transfer to the [facility] if remains stable
Diagnostic Data
Chest X-Ray: 04/19/24- 1. No radiographic evidence for pneumonia.
2. Mild scarring and subsegmental atelectasis in both lower lobes.
3. Mild to moderate elevation of the right hemidiaphragm.
CT Scan: CAP 04/19/24
Lungs - 1. Moderate right lower lobe and mild left lower lobe basilar subpleural airspace consolidations (probably atelectasis and less likely pneumonia). 2. Mild bilateral posterior pleural thickening.
3. Mild cardiomegaly.
AP- 1. 1.0 cm OBSTRUCTING CALCULUS in the RIGHT PROXIMAL URETER.
2. INNUMERABLE RIGHT INTRARENAL CALCULI.
3. Suspected ACUTE RIGHT PYELONEPHRITIS.
4. MULTIPLE FLUID COLLECTIONS in the RIGHT RETROPERITONEUM inferior to the right kidney (probably retroperitoneal abscesses given the history of fever and sepsis, although aseptic partially liquefied retroperitoneal hematomas are also possible).
5. Nonobstructing calculi in the left ureteropelvic junction.
6. Very severe diffuse hepatic steatosis and severe hepatomegaly.
7. Cholelithiasis.
8. Mild colonic diverticulosis.
9. Suprapubic urinary bladder catheter in place.
10. 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
11. Severe diffuse muscle atrophy.
12. SEVERE OSTEOPOROSIS with chronic vertebral body endplate insufficiency fractures in the lumbar spine.
Echo: 07/15/23- Normal left ventricular size, wall thickness and systolic function. LV ejection fraction is 60-65% by visual assessment. Diastolic function indeterminate. Normal right ventricular size. Grossly normal right ventricular systolic
function. Normal atria. No significant valve abnormalities are observed. IVC not visualized. No evidence of pulmonary hypertension. No prior study available for comparison.
PFT's:
Reports and relevant images were personally reviewed.
-----
Critical care time 35 mins -- this includes review of history, physical exam, medications, hemodynamic/ventilator parameters, laboratory data, imaging and discussion with house staff, pharmacy, respiratory therapy, slubber tender, and nursing.
Subjective Dataa
Subjective Data
Date of Service:
Date of Service: April 21, 2024
Chief Complaint: Cloth Tester Quality Follow Up
Subjective:
no events ON, still remains lethargic
off pressors
Objective Data
Data Reviewed
Vital Signs / I&O / Oxygen:
Vital Signs
Temp Pulse Resp BP Pulse Ox
98.7 F 94 16 88/54 94
04/21/24 03:36 04/21/24 06:00 04/21/24 06:00 04/21/24 04:00 04/21/24 06:00
Intake and Output
04/20/24 04/21/24 04/22/24
06:59 06:59 06:59
Intake Total 1775 / 2007.5 3830.0 / 3830.0
Output Total 1200 / 1200 985 / 985
Balance 575 / 807.5 2845.0 / 2845.0
SaO2 94
Nasal Cannula flow liters per 1
minute
Physical Exam
General: Comfortable and Other (NAD, chronically ill appearing, obese)
HEENT: Normocephalic, Anicteric and Moist Mucous Membranes
Cardiovascular: S1-S2 and Regular Rhythm
Respiratory: Clear and Non-Labored Respirations
GI: Soft, Non Distended and Non Tender
Neurology: Lethargic (minimally responsive, grunts on tactile stim)
Skin: Warm, Dry and Good Color
Labs/Micro/Reports
Lab Data
04/21/24 05:27
04/21/24 05:27
Laboratory Results
04/20/24
10:00
pH 7.31 L
pCO2 42 H
pO2 77 L
HCO3 21.1
O2 Delivery Level
Microbiology
04/19/24 11:23 Blood/Venous Blood Culture - Preliminary
Positive culture in progress
04/19/24 11:23 Blood/Venous Gram Stain - Preliminary
04/19/24 11:23 Blood/Venous Blood Culture - Preliminary
Proteus species
04/19/24 11:23 Blood/Venous Gram Stain - Preliminary
04/19/24 11:57 Urine Urine Culture - Preliminary
Gram negative bacilli
Enterococcus species
--- NOTE | 2024-04-21 07:25 | W.PN.URO.CBU ---
Today's Communication / Plan
-
continue sp tube and stents
Assessment / Plan
-
urosepsis with huge right side stone burden including right upj and ureteral stone and small left ureteral stones
perinephric fluid collections/possible abscess vs forniceal rupture
neurogenic bladder with chronic sp tube and cystitis
s/p bilateral stent placement
pt's objective parameters improving
continue iv antibx/medical resuscitation
continue sp tube and stents
as pt has improved- will delay ct an additional 24hrs to better determine in jannet-nephric collections are evolving/resolving in determination if drainage is necessary/possible
Diagnosis
-
Date of Service: April 21, 2024
-
Patient Diagnosis:
urosepsis
obstructing stones
perinephric fluid collections/abscess
Post Op Day:
cysto/bilateral ureteral stents/sp tube exchange 04/19
Subjective
-
pt somewhat more alert
no fevers/wbc declining
cx's + for proteus and enterococcus
urine clear
abd less tender
in NSR
Objective
-
Vital Signs
Temp Pulse Resp BP Pulse Ox
98.7 F 94 16 88/54 94
04/21/24 03:36 04/21/24 06:00 04/21/24 06:00 04/21/24 04:00 04/21/24 06:00
Intake and Output
04/20/24 04/21/24 04/22/24
06:59 06:59 06:59
Intake Total 1774 / 2006.5 3830.0 / 3830.0
Output Total 1200 / 1200 985 / 985
Balance 575 / 807.5 2845.0 / 2845.0
Intake:
IV fluids (Total) 1774 3060 / 3060
D5/0.45%NaCl 1,000 ml @ 120 mls 2280 / 2280
/hr IV .Q8H20M MALIK Rx#:[id number]
NS 1670 / 1820 150 / 150
Nss 1,000 ml @ 150 mls/hr IV . 525 / 525
Q6H40M MALIK Rx#:[id number]
cardizem 105 / 120 105 / 105
IV piggybacks 550.0 / 550.0
Feeding tube flush amount 220 / 220
Output:
Urine, Lopez 850 / 850
Suprapubic output 350 / 350 985 / 985
Laboratory Results
04/21/24 05:27
04/21/24 05:27
Review of Systems
-
Unable to obtain full review of systems at this time due to: Other (pt poorly responsive)
Physical Exam
-
General - ill appearing, no acute distress
Chest - clear bilaterally
Abdomen - some tenderness to deep palpation/ sp tube in place
--- NOTE | 2024-04-21 07:59 | W.PN.HOSP.TC ---
Today's Communication/Plan
-
Vanc/Cefepime
Daily prednisone dose
repeat CT tomorrow
appreciate consultants
ST
NPO after MN
Assessment / Plan
Assessment / Plan
Patient is a 68-year-old female who is essentially bedbound due to multiple sclerosis with chronic baclofen, chronic prednisone therapy with suprapubic catheter for neurogenic bladder, previous history of septic shock secondary to obstructive
uropathy back in July to August 2023 presents to the ER with letharge, flank pain and fever.
Severe sepsis due to obstructing renal stones with abscesses vs forniceal rupture noted on CAT scan--patient received 3 L normal saline sepsis bolus dosing, IV vancomycin, IV cefepime in ED--apprec urology/senior professional services consultant/infectious disease--s/p stent
placement in OR
-appreciate ID, continue IV VAnc/Cefepime
-no need for steroids; off stress dose steroids on daily prednisone 10
-lactic acidosisi resolved
--follow blood and urine cultures
-plan to repeat imaging tomorrow to better determine in jannet-nephric collections are evolving/resolving in determination if drainage is necessary/possible. NPO after MN
TME 2/2 above
-patient was kept NPO, now awake/alert
-will order ST
Acute kidney injury--likely due to obstructive uropathy--follow with IV fluids and relief of obstruction
-resolved
paroxysmal afib--s/p cardizem drip
back on oral dilt
hypokalemia--replete
Multiple sclerosis--patient on chronic prednisone therapy 10 mg p.o. daily--given severity of illness, this gave 100 mg of IV hydrocortisone as now dose in the ED followed by 50 mg IV every 8 hours, now back on home prednisone
Neurogenic bladder--from multiple sclerosis--continue suprapubic tube
Mildly elevated liver function test--likely from fever, infection, medications--trend for now
DVT prophylaxis--NO anticoagulants--SCDs
CODE STATUS-- full code
Total Critical Care Time 34 minutes. I was immediately available to the patient and staff. I personally examined, reviewed labs, diagnostic images/reports, interpretations, treatment plans, discussed patient care with other providers and family
or caregivers (if patient is unable to make decisions), entered orders as appropriate and documented the medical record.
Anticipated Discharge: > 48 hours
Subjective/Interval History
-
Date of Service: April 21, 2024
awoken from sleep
no new complaints
denies pain
BP has been stable overnight, no need for pressors
Objective Data
-
Labs:
Laboratory Results
04/21/24
05:27
WBC 16.9 H
Hgb 12.6
Hct 41.6
Plt Count 177 D
Sodium 146 H
Potassium 3.4 L
Chloride 117 H
Carbon Dioxide 18 L
BUN 28 H
Creatinine 0.8
Glucose 109 H
Calcium 10.1
Total Bilirubin 2.3 H
AST 63 H
ALT 39 H
Alkaline Phosphatase 170 H
Vital Signs:
Vital Signs
Temp Pulse Resp BP Pulse Ox
98.7 F 94 16 88/54 94
04/21/24 03:36 04/21/24 06:00 04/21/24 06:00 04/21/24 04:00 04/21/24 06:00
I&O
04/20/24 04/21/24 04/22/24
06:59 06:59 06:59
Intake Total 1775 / 2007.5 3830.0 / 3830.0
Output Total 1200 / 1200 985 / 985
Balance 575 / 807.5 2845.0 / 2845.0
Review of Systems
-
History Source: Patient
All other systems: Reviewed and negative
Physical Exam
-
General: Well Developed, Well Nourished, No Apparent Distress and Morbidly Obese
HEENT: Normocephalic, Atraumatic and Other
Respiratory: Clear to Auscultation; Negative Wheezes or Rhonchi
Cardiac: Regular Rhythm and S1/S2; Negative Murmur
GI: Soft, Nontender, Nondistended and Normal Bowel Sounds
Genito-urinary: Supra Pubic Tube
Musculoskeletal: No Clubbing, No Cyanosis and No Edema
Neuro: Awake and Alert
Data Reviewed
-
Diagnostic Radiology: Report Reviewed by me
Labs: Labs Reviewed by me
[2024-04-21] MEDS: LIORESAL 5 MG TUBE ×3 (08:12→21:31)
[2024-04-21] MEDS: DELTASONE 10 MG TUBE (08:12)
[2024-04-21] MEDS: CARDIZEM 60 MG TUBE (08:12)
[2024-04-21] MEDS: PROTONIX IV 40 MG IV (08:13)
[2024-04-21] MEDS: NSS (PRESERVATIVE FREE) 10 ML IV (08:13)
--- NOTE | 2024-04-21 08:58 | W.PN.ID1 ---
Date of Service
Date of Service: April 21, 2024
Today's Communication
Continue Vanco/cefepime.
Assessment / Plan
# Complicated UTI with right obstructive uropathy and perinephric abscesses
# Proteus bacteremia, source
# Severe sepsis - improving
# Afib with RVR, rate controlled
# PCN allergy, tolerates cephalosporin
# Neurogenic bladder with SPC
# Multiple sclerosis on chronic low dose prednisone
-04/19 s/p bilateral ureter stents, SPC exchange
- Ucx: GNR, Enterococcus
- Bcx 1 of 2 sets: Proteus
- Follow repeat blood cx's
- To drain perinephric abscesses, if able
-Continue Vancomycin and cefepime (d2)
- Monitor temps, wbc.
#Additional Past Medical History:
Multiple sclerosis chronic prednisone 5mg
Neurogenic bladder with chronic suprapubic catheter
Paroxysmal atrial fibrillation
Nephrolithiasis with history of obstructive uropathy
Class III obesity BMI 39.5
Appendectomy
Tubal ligation
Left groin infected hematoma I+D
Chief Complaint
-: UTI and Bacteremia
Subjective / Review of Systems
Feeling better today. No flank pain.
Vital Signs / Physical Exam
Vital Signs
Vital Signs
Temp Pulse Resp BP Pulse Ox
98.4 F 94 16 88/54 94
04/21/24 07:20 04/21/24 06:00 04/21/24 06:00 04/21/24 04:00 04/21/24 06:00
Physical Exam
Constitutional: Comfortable
Cardiovascular: Regular Rate and S1/S2
Pulmonary: Clear
Genito-Urinary: Turbid Urine (SPC); Negative CVA Tenderness
Extremities: Edema
Neurological: Awake and Alert
Objective Data
Lab Data
Lab Results
04/21/24 05:27
04/21/24 05:27
PT 15.9 Sec (11.4-14.6) H 04/19/24 19:56
INR 1.29 04/19/24 19:56
APTT 37.7 Sec (23.4-35.0) H 04/19/24 19:56
Estimated Creat Clear 76 ml/min 04/21/24 05:27
Lactic Acid Cancelled 04/20/24 12:20
Total Bilirubin 2.3 mg/dl (0.2-1.3) H 04/21/24 05:27
AST 63 U/L (14-36) H 04/21/24 05:27
ALT 39 U/L (0-35) H 04/21/24 05:27
Alkaline Phosphatase 170 U/L (38-126) H 04/21/24 05:27
Most recent labs reviewed.
Micro Results:
04/21/24 05:27 Blood Culture - Pending
Blood/Venous
04/19/24 11:23 Blood Culture - Preliminary
Blood/Venous Positive culture in progress
Gram Stain - Preliminary
04/19/24 11:23 Blood Culture - Preliminary
Blood/Venous Proteus species
Gram Stain - Preliminary
04/19/24 11:57 Urine Culture - Preliminary
Urine Gram negative bacilli
Enterococcus species
04/19/24 CT c/a/p wo: 1.0 cm OBSTRUCTING CALCULUS in the RIGHT PROXIMAL URETER. Suspected ACUTE RIGHT PYELONEPHRITIS. MULTIPLE FLUID COLLECTIONS in the RIGHT RETROPERITONEUM inferior to the right kidney (probably retroperitoneal abscesses given the
history of fever and sepsis, although aseptic partially liquefied retroperitoneal hematomas are also possible). Nonobstructing calculi in the left ureteropelvic junction.
--- NOTE | 2024-04-21 09:22 | W.PN.CD ---
Today's Communication / Plan
-
Given low BP will decrease dilt to 30 q6 hrs and we will accept a bit faster AFib
Impression / Plan
-
Sepsis (severe), obstructive stones with abscess:
-on IV abx
-ID consulted
-s/p b/l stenting by urology
Lower BP on dilt 60 q 6
- Will lower dilt dose (Used for AFib rate control)
AFIB, paroxysmal: noted in past, RVR in 130's
-in setting of acute illness
-Now with paroxysms of AFib but well rate controlled
-continue IV diltiazem for now, which requires intensive monitoring
-when patient can get PO meds (when NG tube placement acceptable), transition from IV diltiazem to PO
-[id number] score is at least 2 for age and female (possibly 3 since question of CHF in the past as well, but echo fairly normal and does not appear volume overloaded to assessment- on lasix as OP, with chronic BLE edema), but not on OAC due to
previous bleeding issues (including recurrent hematuria, and not recommended by urology).
Multiple sclerosis:
-on steroids
-per primary
Neurogenic bladder:
-suprapubic tube in place
-uro following
Hypokalemia:
-being replaced
-follow
Physical Exam
Vital Signs/Labs
Vital Signs
Temp Pulse Resp BP Pulse Ox
98.4 F 94 16 88/54 94
04/21/24 07:20 04/21/24 06:00 04/21/24 06:00 04/21/24 04:00 04/21/24 06:00
04/20/24 04/21/24 04/22/24
06:59 06:59 06:59
Actual Weight 101.1 kg
04/21/24 05:27
04/21/24 05:27
PT 15.9 Sec (11.4-14.6) H 04/19/24 19:56
INR 1.29 04/19/24 19:56
APTT 37.7 Sec (23.4-35.0) H 04/19/24 19:56
Magnesium 2.0 mg/dl (1.6-2.3) 04/21/24 05:27
Physical Exam
Constitutional: No acute distress
EENT: Anicteric
Cardiovascular: Rhythm & rate is regular and Pedal edema is absent
Respiratory: Respiratory effort normal and Lungs clear to auscul.
GI: Soft and Distention absent
Data Reviewed
-
Date of Service: April 21, 2024
--- NOTE | 2024-04-21 09:57 | PHA.VAN.FU ---
Vancomycin Assessment / Plan
- Assessment
Renal Function: SCR Decreasing
WBC's are: Trending Down
In the past 24 hrs, patient has been: Afebrile
Concomitant Antimicrobials: cefepime
- Assessment - Therapeutic Drug Monitoring
Random Level: R=19.1, drawn ~16H after previous dose of 1250mg
SCR improved, BUN remains elevated but trending down
Based on level, estimated CrCl does not appear predictive of current vanc clearance
- Dosing Plan
Dosing by Level: Re-dose today (Vanc 750mg - reducing dose today)
- Monitoring Plan
Random Level: 04/22 0600
- Follow Up
Pharmacy will continue to follow.
Vancomycin Follow UP
- -
Patient Age: 68
Patient Sex: Female
Vancomycin Day #: 3 (first dose 04/19)
Indication: Genito-Urinary Tract
Requesting Provider: Dr. Brown
Pertinent Antimicrobial Allergies:
moxifloxacin - swelling; tolerates ciprofloxacin
penicillins - unknown, > 30 y/a, tolerated cefazolin
Height / Weight:
Height 5 ft 3 in
Actual Weight 101.1 kg
Pertinent Past Medical History: BMI ~40, MS
- Vital Signs / Lab Results
Temp Pulse Resp BP Pulse Ox
98.4 F 94 16 88/54 94
04/21/24 07:20 04/21/24 06:00 04/21/24 06:00 04/21/24 04:00 04/21/24 06:00
Lab Results - Hematology
04/19/24 04/20/24 04/21/24
11:23 04:28 05:27
WBC 25.8 H 24.0 H 16.9 H
Lab Results - Chemistry
04/19/24 04/19/24 04/20/24
11:23 19:56 04:28
BUN 32 H 30 H 31 H
Creatinine 1.9 H 1.5 H 1.4 H
Estimated Creat Clear 40 44
Albumin 3.0 L 2.3 L
04/21/24
05:27
BUN 28 H
Creatinine 0.8
Estimated Creat Clear 76
Albumin 2.3 L
04/19/24 04/19/24 04/19/24
11:23 14:54 19:56
Lactic Acid 4.4 H* 4.0 H* 5.7 H*
04/20/24 04/20/24 04/20/24
00:31 04:28 08:49
Lactic Acid 3.4 H 2.3 H 1.8
04/20/24
12:20
Lactic Acid Cancelled
Microbiology Results
04/19/24 11:23 Blood Culture - Preliminary
Blood/Venous Positive culture in progress
Gram Stain - Preliminary
04/19/24 11:23 Blood Culture - Preliminary
Blood/Venous Proteus species
Gram Stain - Preliminary
04/19/24 11:57 Urine Culture - Preliminary
Urine Gram negative bacilli
Enterococcus species
Therapeutic Drug Monitoring
Random Vancomycin 19.1 ug/ml 04/21/24 05:27
--- NOTE | 2024-04-21 10:04 | PTOTSP ---
Dysphagia Evaluation
Patient presents with signs concerning for severe oral stage dysphagia which is likely exacerbated by acute AMS and lethargy. Pharyngeal stage could not be assessed. Patient at an elevated risk for aspiration and complications from aspiration
(i.e., bedbound, poor oral hygiene, acutely ill) at this time.
Recommend:
1. NPO, consider use of non-oral means in place (DHT)
2. Medications via non-oral means
3. Oral care 3x daily to reduce risk for aspiration of oral bacteria
4. Hold Aspiration Risk Hydration Protocol given significant weakness and AMS noted at this time.
5. Will re-evaluate as able/appropriate at the acute care level.
--- NOTE | 2024-04-21 11:16 | PTCARENOTE ---
Pt drowsy, awakens to voice. BP stable off pressors. Lungs CTA. 89% on room air. Now 93% on 1L NC. Cloudy ninfa urine via suprapubic catheter. All other assessments unchanged.
[2024-04-21] MEDS: CELEXA 10 MG TUBE (13:06)
[2024-04-21] MEDS: VANCOCIN 150 IV (13:07)
[2024-04-21] MEDS: CARDIZEM 30 MG TUBE ×3 (13:07→21:34)
--- NOTE | 2024-04-21 14:02 | CM ---
Patient seen at bedside in ICU with also present. Patient on O2 and per patient with less wires. Patient plan is for patient to go home when medically appropriate. CM will continue to follow for discharge planning needs.
Plan; home with and VN supports as needed. Watch for SNF vs VN needs
[2024-04-21] MEDS: KCL ELIXIR 20 MEQ TUBE (16:38)
[2024-04-21] MEDS: CARDIZEM TUBE (16:38)
--- NOTE | 2024-04-21 19:53 | PTCARENOTE ---
Assumed care of pt at 1900. Pt is drowsy, arouses to voice or tactile stimuli. A/O to person and knows she is in the hospital, but unable to state which one. Unable to state the date. Difficult to fully assess pt's orientation d/t how drowsy she is.
Able to follow simple commands. No c/o pain. SR 70s on monitor, SpO2 94-96% on 1LNC. Suprapubic cath draining dark ninfa cloudy urine. See nursing shift assessment flowsheet for full physical assessment details.
[2024-04-22] VITALS (21 sets, daily range): BP systolic 87–139; BP diastolic 53–80; PULSE 89–93; O2SAT 92–93; BMI 41.1
--- NOTE | 2024-04-22 01:45 | PTCARENOTE ---
Midnight assessment unchanged. Pt has been sleeping most of the shift, will wake up to tactile stimuli. Pt is slow to respond and will often start a sentence and not finish it or start to answer your question but not finish her response. SR 70s on
monitor, SpO2 96% on 1LNC.
[2024-04-22] MEDS: STERILE WATER FOR INJECTION 10 ML IV ×3 (03:04→14:02)
[2024-04-22] MEDS: MAXIPIME 1000 MG IV ×2 (03:04→08:37)
[2024-04-22 05:07] LABS: % Basophils 0.5 % (0-2); % Eosinophils 0.7 % (0-6); % Immature Granulocytes 2.6 % (0-0.5); % Lymphocytes 13.2 % (20.5-51.1); % Monocytes 7.2 % (1.7-9.3); % Neutrophils 75.8 % (42.2-75.2); Absolute Basophils 0.1 10^3/uL (0-0.2); Absolute Eosinophils 0.1 10^3/uL (0-0.7); Absolute Immature Granulocytes 0.3 10^3/uL (0-0.05); Absolute Lymphocytes 1.7 10^3/uL (1.2-3.4); Absolute Monocytes 0.9 10^3/uL (0.1-0.6); Absolute Neutrophils 9.5 10^3/uL (1.4-6.5); Hematocrit 36.6 % (37.0-47.0); Hemoglobin 11.1 g/dL (12.0-16.0); Mean Corp Hgb Conc. 30.3 g/dL (33.0-37.0); Mean Corpuscular Hgb 29.1 pg (27.0-31.0); Mean Corpuscular Volume 96.1 fL (81.0-99.0); Mean Platelet Volume 11.6 fL (7.4-10.4); Nucleated Red Blood Cells % 0 %; Platelet Count 184 10^3/uL (130-400); Red Blood Cell Count 3.81 10^6/uL (4.20-5.40); Red Cell Dist. Width 16.6 % (11.5-14.5); White Blood Cell Count 12.5 10^3/uL (4.8-10.8)
[2024-04-22 05:25] LABS: Vancomycin Random 15.9 ug/ml
[2024-04-22 05:41] LABS: ALT (SGPT) 48 U/L (0-35); AST (SGOT) 81 U/L (14-36); Albumin 2.1 g/dl (3.5-5.0); Alkaline Phosphatase 152 U/L (38-126); Blood Urea Nitrogen 18 mg/dl (7-17); Calcium 9.8 mg/dl (8.4-10.2); Carbon Dioxide 21 mmol/L (22-30); Chloride 117 mmol/L (98-107); Estimated Creatinine Clearance 104 ml/min; Glucose 110 mg/dl (70-99); Magnesium 1.8 mg/dl (1.6-2.3); Potassium 3.2 mmol/L (3.5-5.1); Sodium 144 mmol/L (135-145); Total Bilirubin 1.7 mg/dl (0.2-1.3); Total Protein 4.9 g/dl (6.3-8.2); eGFR > 60.00
[2024-04-22] MEDS: D5/0.45%NACL 1000 IV ×3 (06:02→23:00)
[2024-04-22] MEDS: KCL ELIXIR 40 MEQ TUBE (06:16)
--- NOTE | 2024-04-22 07:22 | W.PN.INTV ---
Today's Communication / Plan
Recommendations
Remains clinically unchanged, off pressors/stable
CT planning per urology today
Can transfer to tele today per team, we will sign off upon transfer
Assessment
-
Mrs Amber Bañuelos is a 68/W adm 05-19 with 3 d h/o abd and L flank pain and declining UO per suprapubic cath. Lethargic since d [employer], did not take any of her oral meds. Brought to ER, 103 �F rectal temp, leukocytosis, lactacidemia, borderline low BP.
CAP CT with basilar atelectasis, 1.0 cm obstructing calculus at R prox ureter, multiple R renal calculi, multiple R retroperitoneal fluid collections, nonobstructing calculi at L ureteropelvic junction. Started on IVFs and empiric meropenem. Seen by
Urology, take to OR, received cysto/left ureteral stent/ right retrograde and right ureteral stent/ sp tube exchange under gral anesthesia, extubated p sx and brought to ICU
Impression:
Urosepsis
Nephrolithiasis
Dehydration, hemoconcentration
TESSA, prerenal and postrenal
Lactacidemia
Leukocytosis
Lethargy
Conditions [employer]:
Multiple sclerosis, on baclofen and prednisone (10 mg qd), bedbound
Neurogenic bladder with suprapubic catheter
PAFib
Tubal ligation
Appendectomy
Nephrolithiasis, attempted renal stone removal July to August 2023
Urosepsis
Proteus mirab/Serr luz bacteriemia Jul 2023
Non-smoker
Morbid obesity
Plan
O2 protocol as needed
Currently on O2 1L, POx 98%, can likely wean to off
Asp precs
IS as able
Continue IVFs
Off pressors
Monitor LA
Cardizem required due to tachycardia
Wean off HC, transitioned back to home prednisone dose
Stable on supplemental O2
ABG without hypercarbia
DHT placement, TFs
Resume home meds
Aspiration precautions
Urosepsis, urine culture GNB, enterococcus
Proteus species in blood
Continue empiric meropenem
Urology following
CT pending
DVT proph: sc hep
Oral diet once more stable
Can likely transfer to [facility] if remains stable
Diagnostic Data
Chest X-Ray: 04/19/24- 1. No radiographic evidence for pneumonia.
2. Mild scarring and subsegmental atelectasis in both lower lobes.
3. Mild to moderate elevation of the right hemidiaphragm.
CT Scan: CAP 04/19/24
Lungs - 1. Moderate right lower lobe and mild left lower lobe basilar subpleural airspace consolidations (probably atelectasis and less likely pneumonia). 2. Mild bilateral posterior pleural thickening.
3. Mild cardiomegaly.
AP- 1. 1.0 cm OBSTRUCTING CALCULUS in the RIGHT PROXIMAL URETER.
2. INNUMERABLE RIGHT INTRARENAL CALCULI.
3. Suspected ACUTE RIGHT PYELONEPHRITIS.
4. MULTIPLE FLUID COLLECTIONS in the RIGHT RETROPERITONEUM inferior to the right kidney (probably retroperitoneal abscesses given the history of fever and sepsis, although aseptic partially liquefied retroperitoneal hematomas are also possible).
5. Nonobstructing calculi in the left ureteropelvic junction.
6. Very severe diffuse hepatic steatosis and severe hepatomegaly.
7. Cholelithiasis.
8. Mild colonic diverticulosis.
9. Suprapubic urinary bladder catheter in place.
10. 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
11. Severe diffuse muscle atrophy.
12. SEVERE OSTEOPOROSIS with chronic vertebral body endplate insufficiency fractures in the lumbar spine.
Echo: 07/15/23- Normal left ventricular size, wall thickness and systolic function. LV ejection fraction is 60-65% by visual assessment. Diastolic function indeterminate. Normal right ventricular size. Grossly normal right ventricular systolic
function. Normal atria. No significant valve abnormalities are observed. IVC not visualized. No evidence of pulmonary hypertension. No prior study available for comparison.
PFT's:
Reports and relevant images were personally reviewed.
-----
Critical care time 35 mins -- this includes review of history, physical exam, medications, hemodynamic/ventilator parameters, laboratory data, imaging and discussion with house staff, pharmacy, respiratory therapy, players club representative, and nursing.
Subjective Dataa
Subjective Data
Date of Service:
Date of Service: April 22, 2024
Chief Complaint: [employer] Follow Up
Subjective:
remains clinically the same/unchanged
stable, but lethargic
Objective Data
Data Reviewed
Vital Signs / I&O / Oxygen:
Vital Signs
Temp Pulse Resp BP Pulse Ox
98.5 F 82 13 105/58 96
04/22/24 04:17 04/22/24 06:00 04/22/24 06:00 04/22/24 06:00 04/22/24 06:00
Intake and Output
04/21/24 04/22/24 04/23/24
06:59 06:59 06:59
Intake Total 3830.0 / 3950.0 3445 / 3445
Output Total 985 / 985 1055 / 1055
Balance 2845.0 / 2965.0 2390 / 2390
SaO2 96
Nasal Cannula flow liters per 1
minute
Physical Exam
General: Comfortable and Other (NAD, chronically ill appearing, obese)
HEENT: Normocephalic, Anicteric and Moist Mucous Membranes
Cardiovascular: S1-S2 and Regular Rhythm
Respiratory: Clear and Non-Labored Respirations
GI: Soft, Non Distended and Non Tender
Neurology: Lethargic (minimally responsive, grunts on tactile stim)
Skin: Warm, Dry and Good Color
Labs/Micro/Reports
Lab Data
04/22/24 04:45
04/22/24 04:45
Microbiology
04/21/24 05:27 Blood/Venous Blood Culture - Preliminary
No Growth in 24 hours- Final report to follow
04/19/24 11:23 Blood/Venous Blood Culture - Preliminary
Proteus species
04/19/24 11:23 Blood/Venous Gram Stain - Preliminary
04/19/24 11:23 Blood/Venous Blood Culture - Preliminary
Proteus species
04/19/24 11:23 Blood/Venous Gram Stain - Preliminary
04/19/24 11:57 Urine Urine Culture - Preliminary
Gram negative bacilli
Enterococcus species
--- NOTE | 2024-04-22 07:40 | W.PN.URO.CBU ---
Today's Communication / Plan
-
ct scan ordered for today
Assessment / Plan
-
urosepsis with huge right side stone burden including right upj and ureteral stone and small left ureteral stones
perinephric fluid collections/possible abscess vs forniceal rupture
neurogenic bladder with chronic sp tube and cystitis
s/p bilateral stent placement
pt's objective parameters improving significantly
continue iv antibx/medical resuscitation
continue sp tube and stents
CT today
Diagnosis
-
Date of Service: April 22, 2024
-
Patient Diagnosis:
urosepsis
obstructing stones
perinephric fluid collections/abscess
Post Op Day:
cysto/bilateral ureteral stents/sp tube exchange 04/19
Subjective
-
pt more awake and alert
afebrile/wbc continues to downtrend
HD stable
proteus in blood/enterococcus in urine
Objective
-
Vital Signs
Temp Pulse Resp BP Pulse Ox
98.5 F 82 13 105/58 96
04/22/24 04:17 04/22/24 06:00 04/22/24 06:00 04/22/24 06:00 04/22/24 06:00
Intake and Output
04/21/24 04/22/24 04/23/24
06:59 06:59 06:59
Intake Total 3830.0 / 3950.0 3445 / 3445
Output Total 985 / 985 1055 / 1055
Balance 2845.0 / 2965.0 2390 / 2390
Intake:
IV fluids (Total) 3060 / 3180 2760 / 2760
D5/0.45%NaCl 1,000 ml @ 120 mls 2280 / 2400 2760 / 2760
/hr IV .Q8H20M MALIK Rx#:[id number]
NS 150 / 150
Nss 1,000 ml @ 150 mls/hr IV . 525 / 525
Q6H40M MALIK Rx#:[id number]
cardizem 105 / 105
IV piggybacks 550.0 / 550.0 425 / 425
Feeding tube flush amount 220 / 220 260 / 260
Output:
Suprapubic output 985 / 985 1055 / 1055
Laboratory Results
04/22/24 04:45
04/22/24 04:45
Physical Exam
-
General - no acute distress
Abdomen - soft, much less tender- sp tube in place
--- NOTE | 2024-04-22 08:18 | PHA.VAN.FU ---
Vancomycin Assessment / Plan
- Assessment
Renal Function: SCR Decreasing
WBC's are: Trending Down
In the past 24 hrs, patient has been: Afebrile
Concomitant Antimicrobials: cefepime
- Assessment - Therapeutic Drug Monitoring
Random Level: 15.9 - drawn ~15.5H after previous dose of 750mg
- Dosing Plan
Dosing by Level: Re-dose today (Vanc 750mg)
Estimated CrCl does not appear predictive of current vanc clearance
SCR & BUN further improved today but patient's level higher today than anticipated with decrease in dosing
Will re-dose today with same dose as yesterday and follow trend in level
- Monitoring Plan
Random Level: 04/23 06
- Follow Up
Pharmacy will continue to follow.
Vancomycin Follow UP
- -
Patient Age: 68
Patient Sex: Female
Vancomycin Day #: 4 (first dose 04/19)
Indication: Genito-Urinary Tract
Requesting Provider: Dr. Brown
Pertinent Antimicrobial Allergies:
moxifloxacin - swelling; tolerates ciprofloxacin
penicillins - unknown, > 30 y/a, tolerated cefazolin
Height / Weight:
Height 5 ft 3 in
Actual Weight 105.1 kg
Pertinent Past Medical History: BMI ~40, MS
- Vital Signs / Lab Results
Temp Pulse Resp BP Pulse Ox
97.3 F 82 13 105/58 96
04/22/24 07:43 04/22/24 06:00 04/22/24 06:00 04/22/24 06:00 04/22/24 06:00
Lab Results - Hematology
04/19/24 04/20/24 04/21/24
11:23 04:28 05:27
WBC 25.8 H 24.0 H 16.9 H
04/22/24
04:45
WBC 12.5 H
Lab Results - Chemistry
04/19/24 04/19/24 04/20/24
11:23 19:56 04:28
BUN 32 H 30 H 31 H
Creatinine 1.9 H 1.5 H 1.4 H
Estimated Creat Clear 40 44
Albumin 3.0 L 2.3 L
04/21/24 04/22/24
05:27 04:45
BUN 28 H 18 H
Creatinine 0.8 0.6
Estimated Creat Clear 76 104
Albumin 2.3 L 2.1 L
04/19/24 04/19/24 04/19/24
11:23 14:54 19:56
Lactic Acid 4.4 H* 4.0 H* 5.7 H*
04/20/24 04/20/24 04/20/24
00:31 04:28 08:49
Lactic Acid 3.4 H 2.3 H 1.8
04/20/24
12:20
Lactic Acid Cancelled
Microbiology Results
04/21/24 05:27 Blood Culture - Preliminary
Blood/Venous No Growth in 24 hours- Final report to follow
04/19/24 11:23 Blood Culture - Preliminary
Blood/Venous Proteus species
Gram Stain - Preliminary
04/19/24 11:23 Blood Culture - Preliminary
Blood/Venous Proteus species
Gram Stain - Preliminary
04/19/24 11:57 Urine Culture - Preliminary
Urine Gram negative bacilli
Enterococcus species
Therapeutic Drug Monitoring
Random Vancomycin 15.9 ug/ml 04/22/24 04:45
--- NOTE | 2024-04-22 08:25 | W.PN.CD ---
Today's Communication / Plan
-
- I will sign off - please call with questions
- continue current diltiazem and resume outpatient diltiazem at discharge
Impression / Plan
-
Impression: 68F with paroxysmal AF admitted with sepsis. AF was seen again.
Sepsis (severe), obstructive stones with abscess:
Lower BP on dilt 60 q 6 -> lowered dilt dose
AFIB, paroxysmal: noted in past, RVR in 130's
-in setting of acute illness
-Less AF over last 24 hours.
-[id number] score is at least 2 for age and female (possibly 3 since question of CHF in the past as well, but echo fairly normal and does not appear volume overloaded to assessment- on lasix as OP, with chronic BLE edema), but not on OAC due to
previous bleeding issues (including recurrent hematuria, and not recommended by urology).
Multiple sclerosis:
-on steroids
-per primary
Neurogenic bladder:
-suprapubic tube in place
-uro following
Hypokalemia:
Dispo
- I will sign off - please call with questions
- continue current diltiazem and resume outpatient diltiazem at discharge
Physical Exam
Vital Signs/Labs
Vital Signs
Temp Pulse Resp BP Pulse Ox
36.3 C 82 13 105/58 96
04/22/24 07:43 04/22/24 06:00 04/22/24 06:00 04/22/24 06:00 04/22/24 06:00
04/21/24 04/22/24 04/23/24
06:59 06:59 06:59
Actual Weight 231 lb 11.293 oz
04/22/24 04:45
04/22/24 04:45
PT 15.9 Sec (11.4-14.6) H 04/19/24 19:56
INR 1.29 04/19/24 19:56
APTT 37.7 Sec (23.4-35.0) H 04/19/24 19:56
Magnesium 1.8 mg/dl (1.6-2.3) 04/22/24 04:45
Physical Exam
Constitutional: No acute distress
EENT: Anicteric
Cardiovascular: Rhythm & rate is regular, Systolic murmur absent and Diastolic murmur absent
Respiratory: Respiratory effort normal
GI: Soft
Neuro/Psych: Alert
Data Reviewed
-
Date of Service: April 22, 2024
Echo: Other (Tele shows NSR)
--- NOTE | 2024-04-22 08:30 | PTCARENOTE ---
Assumed care of pt at 0715 following shift report. Pt resting quietly w/ eyes closed. Opened eyes to name. Slow to respond to questions but able to stated name and place. Pt able to give month and year. Denies any c/o pain. Follows simple
commands- significant generalized weakness noted w/ pt having ability to wiggle toes on bilateral feet but unable to perform any additional movement of bilateral LE. Physical assessment completed. Oral hygiene completed. Turned/repositioned and
comfort care provided.
[2024-04-22] MEDS: PROTONIX IV 40 MG IV (08:37)
[2024-04-22] MEDS: NSS (PRESERVATIVE FREE) 10 ML IV (08:37)
[2024-04-22] MEDS: CELEXA 10 MG TUBE (08:38)
[2024-04-22] MEDS: DELTASONE 10 MG TUBE (08:38)
[2024-04-22] MEDS: LIORESAL 5 MG TUBE ×3 (08:38→22:12)
[2024-04-22] MEDS: CARDIZEM 30 MG TUBE ×4 (08:38→22:12)
--- NOTE | 2024-04-22 08:54 | CM ---
Patient seen at bedside with physician. Patient more alert, plan for CT scan today per physician. CM will continue to follow for discharge planning needs.
Plan; home with VN and
--- NOTE | 2024-04-22 08:55 | W.PN.HOSP.TC ---
Today's Communication/Plan
-
transfer to tele
CT scan ab/pelvis
cont abx
Assessment / Plan
Assessment / Plan
Patient is a 68-year-old female who is essentially bedbound due to multiple sclerosis with chronic baclofen, chronic prednisone therapy with suprapubic catheter for neurogenic bladder, previous history of septic shock secondary to obstructive
uropathy back in July to August 2023 presents to the ER with letharge, flank pain and fever.
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
placement in OR--appreciate ID, continue IV Vanco/Cefepime--no need for steroids; off stress dose steroids on daily prednisone 10--lactic acidosis resolved--follow blood and urine cultures--plan to repeat imaging today to better determine in
jannet-nephric collections are evolving/resolving in determination if drainage is necessary/possible
TME due to above--patient was kept NPO--has small bore feeding tube--cont speech evals
Acute kidney injury--likely due to obstructive uropathy--follow with IV fluids and relief of obstruction--resolved
paroxysmal afib--s/p cardizem drip--back on oral dilt
hypokalemia--replete
Multiple sclerosis--patient on chronic prednisone therapy 10 mg p.o. daily--given severity of illness, s/p stress dose steroids-- now back on home prednisone
Neurogenic bladder--from multiple sclerosis--continue suprapubic tube
Mildly elevated liver function test--likely from fever, infection, medications--trend for now
DVT prophylaxis--NO anticoagulants--SCDs
CODE STATUS-- full code
transfer to tele
Anticipated Discharge: > 48 hours
Subjective/Interval History
-
Date of Service: April 22, 2024
pt awake but still not answering questions appropriately
Objective Data
-
Labs:
Laboratory Results
04/22/24
04:45
WBC 12.5 H
Hgb 11.1 L
Hct 36.6 L
Plt Count 184
Sodium 144
Potassium 3.2 L
Chloride 117 H
Carbon Dioxide 21 L
BUN 18 H
Creatinine 0.6
Glucose 110 H
Calcium 9.8
Total Bilirubin 1.7 H
AST 81 H
ALT 48 H
Alkaline Phosphatase 152 H
Vital Signs:
max temp for 24 hours
04/22/24
04:17
Temp 98.5 F
Vital Signs
Temp Pulse Resp BP Pulse Ox
97.3 F 84 13 100/74 96
04/22/24 07:43 04/22/24 08:38 04/22/24 06:00 04/22/24 08:38 04/22/24 06:00
I&O
04/21/24 04/22/24 04/23/24
06:59 06:59 06:59
Intake Total 3830.0 / 3950.0 3445 / 3445
Output Total 985 / 985 1055 / 1055
Balance 2845.0 / 2965.0 2390 / 2390
Review of Systems
-
All other systems: Reviewed and negative
Physical Exam
-
General: Well Developed, Well Nourished, No Apparent Distress and Morbidly Obese
HEENT: Normocephalic, Atraumatic and Other (small bore feeding tube)
Respiratory: Clear to Auscultation; Negative Wheezes or Rhonchi
Cardiac: Regular Rhythm and S1/S2; Negative Murmur
GI: Soft, Nontender, Nondistended and Normal Bowel Sounds
Musculoskeletal: No Clubbing, No Cyanosis and No Edema
Neuro: Awake
[2024-04-22] MEDS: VANCOCIN 150 IV (11:11)
--- NOTE | 2024-04-22 11:15 | PTCARENOTE ---
Pt transported to CT scan and back to room. visiting. Updated on plan of care including downgrade to telemetry orders. All questions answered. Pt denies c/o pain. No changes noted from previous assessment findings. Call arias remains w/in pt
reach and safe environment maintained.
--- NOTE | 2024-04-22 13:01 | W.PN.ID1 ---
Date of Service
Date of Service: April 22, 2024
Today's Communication
Narrow cefepime to ceftriaxone.
Continue Vancomycin.
Drain perinephric abscess, if able.
Assessment / Plan
# Complicated UTI with right obstructive uropathy and perinephric abscesses vs forniceal rupture
# Proteus bacteremia, source
# Severe sepsis - improving
# Afib with RVR, rate controlled
# PCN allergy, tolerates cephalosporin
# Neurogenic bladder with SPC
# Multiple sclerosis on chronic low dose prednisone
-04/19 s/p bilateral ureter stents, SPC exchange
- Ucx: Proteus, Enterococcus
- Bcx 2 of 2 sets: Proteus
- Repeat blood cx neg to date
- To drain 4.7 cm perinephric abscess, if able
-Continue Vancomycin (4)
- Narrow cefepime to ceftriaxone (d4)
#Additional Past Medical History:
Multiple sclerosis chronic prednisone 5mg
Neurogenic bladder with chronic suprapubic catheter
Paroxysmal atrial fibrillation
Nephrolithiasis with history of obstructive uropathy
Class III obesity BMI 39.5
Appendectomy
Tubal ligation
Left groin infected hematoma I+D
Chief Complaint
-: UTI and Bacteremia
Subjective / Review of Systems
Continues to feel better.
Vital Signs / Physical Exam
Vital Signs
Vital Signs
Temp Pulse Resp BP Pulse Ox
98.1 F 85 19 117/68 93
04/22/24 11:48 04/22/24 11:06 04/22/24 11:06 04/22/24 11:06 04/22/24 11:06
Physical Exam
Constitutional: No Acute Distress
Gastrointestinal: Soft, Non Tender and Non Distended
Genito-Urinary: Lopez; Negative CVA Tenderness
Neurological: AO x 3
Objective Data
Lab Data
Lab Results
04/22/24 04:45
04/22/24 04:45
PT 15.9 Sec (11.4-14.6) H 04/19/24 19:56
INR 1.29 04/19/24 19:56
APTT 37.7 Sec (23.4-35.0) H 04/19/24 19:56
Estimated Creat Clear 104 ml/min 04/22/24 04:45
Lactic Acid Cancelled 04/20/24 12:20
Total Bilirubin 1.7 mg/dl (0.2-1.3) H 04/22/24 04:45
AST 81 U/L (14-36) H 04/22/24 04:45
ALT 48 U/L (0-35) H 04/22/24 04:45
Alkaline Phosphatase 152 U/L (38-126) H 04/22/24 04:45
Most recent labs reviewed.
Micro Results:
04/19/24 11:57 Urine Culture - Preliminary
Urine Proteus mirabilis
Enterococcus species
04/19/24 11:23 Blood Culture - Final
Blood/Venous Proteus mirabilis
Gram Stain - Final
04/19/24 11:23 Blood Culture - Preliminary
Blood/Venous Proteus mirabilis
Gram Stain - Preliminary
04/21/24 05:27 Blood Culture - Preliminary
Blood/Venous No Growth in 24 hours- Final report to follow
04/19/24 CT c/a/p wo: 1.0 cm OBSTRUCTING CALCULUS in the RIGHT PROXIMAL URETER. Suspected ACUTE RIGHT PYELONEPHRITIS. MULTIPLE FLUID COLLECTIONS in the RIGHT RETROPERITONEUM inferior to the right kidney (probably retroperitoneal abscesses given the
history of fever and sepsis, although aseptic partially liquefied retroperitoneal hematomas are also possible). Nonobstructing calculi in the left ureteropelvic junction.
04/22/24 CT a/p wo contrast: Interval placement of bilateral double-J ureteral stents, both in appropriate position. No evidence for hydronephrosis/obstructive uropathy. Again seen are multiple right-sided intrarenal calculi. Couple of small calculi
within the midpole of the left kidney. Irregular/multiloculated low-attenuation fluid seen within the inferior right retroperitoneum, similar appearance compared to prior CT. The largest locule within the right lower quadrant measures approximately
4.7 x 1.9 cm in cross-section. Limited evaluation for abscess without intravenous contrast, however no locules of gas identified within these collections or significant enlargement compared to the prior CT.
[2024-04-22] MEDS: ROCEPHIN 1000 MG IV (14:02)
--- NOTE | 2024-04-22 15:36 | PTCARENOTE ---
Transfer report called to 'Yael NOONAN' on 2N. Pt to transfer via bed to Rm 2135. No changes noted from previous assessment findings or new complaints received prior to transfer. Pt's family present at time of transfer and assisted in transporting
pt's belongings.
--- NOTE | 2024-04-22 16:14 | PTCARENOTE ---
pt transferred form ICU to room 2135 via bed, at bedside, oriented to new room, call arias within reach , bed at lowest position.
[2024-04-22] MEDS: DESENEX/MITRAZOL/ZEASORB 1 APPLIC TOPICAL (20:23)
[2024-04-23] VITALS (7 sets, daily range): BP systolic 116–141; BP diastolic 60–87; BMI 41.7
[2024-04-23 06:32] LABS: Hematocrit 36.4 % (37.0-47.0); Hemoglobin 11.5 g/dL (12.0-16.0); Mean Corp Hgb Conc. 31.6 g/dL (33.0-37.0); Mean Corpuscular Hgb 29.7 pg (27.0-31.0); Mean Corpuscular Volume 94.1 fL (81.0-99.0); Mean Platelet Volume 11.7 fL (7.4-10.4); Platelet Count 252 10^3/uL (130-400); Red Blood Cell Count 3.87 10^6/uL (4.20-5.40); Red Cell Dist. Width 16.6 % (11.5-14.5)
[2024-04-23 06:47] LABS: Vancomycin Random 14.4 ug/ml
[2024-04-23 06:58] LABS: ALT (SGPT) 53 U/L (0-35); AST (SGOT) 101 U/L (14-36); Albumin 2.4 g/dl (3.5-5.0); Alkaline Phosphatase 184 U/L (38-126); Blood Urea Nitrogen 12 mg/dl (7-17); Calcium 10.3 mg/dl (8.4-10.2); Carbon Dioxide 16 mmol/L (22-30); Chloride 116 mmol/L (98-107); Estimated Creatinine Clearance 105 ml/min; Glucose 94 mg/dl (70-99); Magnesium 1.9 mg/dl (1.6-2.3); Potassium 3.3 mmol/L (3.5-5.1); Sodium 142 mmol/L (135-145); Total Bilirubin 1.7 mg/dl (0.2-1.3); Total Protein 5.5 g/dl (6.3-8.2); eGFR > 60.00
--- NOTE | 2024-04-23 08:06 | PHA.VAN.FU ---
Vancomycin Assessment / Plan
- Assessment
Renal Function: SCR Decreasing
WBC's are: Trending Up
In the past 24 hrs, patient has been: Afebrile
Concomitant Antimicrobials: ceftriaxone
- Assessment - Therapeutic Drug Monitoring
Random Level: 14.4 - drawn ~19H after previous dose of 750mg
- Dosing Plan
Dosing by Level: Re-dose today (Vanc 750mg)
Estimated CrCl does not currently appear predictive of current vanc clearance
However, patient may eventually start having increasing vanc clearance as SCR & BUN are returning to baseline
Will keep dose by level for now to follow levels closely
- Monitoring Plan
Random Level: 04/24 06
- Follow Up
Pharmacy will continue to follow.
Vancomycin Follow UP
- -
Patient Age: 68
Patient Sex: Female
Vancomycin Day #: 5 (first dose 04/19)
Indication: Genito-Urinary Tract
Requesting Provider: Dr. Brown
Pertinent Antimicrobial Allergies:
moxifloxacin - swelling; tolerates ciprofloxacin
penicillins - unknown, > 30 y/a, tolerated cefazolin
Height / Weight:
Height 5 ft 3 in
Actual Weight 106.866 kg
Pertinent Past Medical History: BMI ~40, MS
- Vital Signs / Lab Results
Temp Pulse Resp BP Pulse Ox
98.6 F 85 16 116/60 97
04/23/24 03:26 04/23/24 03:26 04/23/24 03:26 04/23/24 03:26 04/23/24 03:26
Lab Results - Hematology
04/21/24 04/22/24 04/23/24
05:27 04:45 06:09
WBC 16.9 H 12.5 H 15.0 H
Lab Results - Chemistry
04/21/24 04/22/24 04/23/24
05:27 04:45 06:09
BUN 28 H 18 H 12
Creatinine 0.8 0.6 0.5 L
Estimated Creat Clear 76 104 105
Albumin 2.3 L 2.1 L 2.4 L
04/20/24 04/20/24
08:49 12:20
Lactic Acid 1.8 Cancelled
Microbiology Results
04/21/24 05:27 Blood Culture - Preliminary
Blood/Venous No Growth in 48 hours- Final report to follow
04/19/24 11:57 Urine Culture - Preliminary
Urine Proteus mirabilis
Enterococcus faecalis
04/19/24 11:23 Blood Culture - Final
Blood/Venous Proteus mirabilis
Gram Stain - Final
04/19/24 11:23 Blood Culture - Preliminary
Blood/Venous Proteus mirabilis
Gram Stain - Preliminary
Therapeutic Drug Monitoring
Random Vancomycin 14.4 ug/ml 04/23/24 06:09
--- NOTE | 2024-04-23 08:15 | PTOTSP ---
Speech Language Pathology
Pt seen for dysphagia tx. Awake upon arrival with perseverative phrases, such as 'how are you?' which she repeated multiple times in response to different questions. Able to state first name, but was otherwise not oriented. Suction set up in room
and completed oral suctioning with use of suction toothbrush. Dried secretions removed from lips.
Attempted 2ccs of thin water via pipetted straw with no attempt to swallow. Orally suctioned from oral cavity. Trialed 1/2 tsp of puree and provided downward lingual pressure with spoon. No attempts to manipulate while pt talking, stating 'Thank
you' multiple times. This was also suctioned from oral cavity. Further P.O. trials deferred.
Recommend:
(1) Strict NPO
(2) Non-oral meds
(3) Not appropriate for Aspiration Risk Hydration Protocol (ARHP) given absent bolus manipulation and swallow initiation
(4) ASSORTMENT PLANNER to continue to follow
[2024-04-23] MEDS: CARDIZEM 30 MG TUBE ×4 (09:05→22:41)
[2024-04-23] MEDS: LIORESAL 5 MG TUBE ×3 (09:05→22:46)
[2024-04-23] MEDS: DELTASONE 10 MG TUBE (09:06)
[2024-04-23] MEDS: CELEXA 10 MG TUBE (09:07)
[2024-04-23] MEDS: NSS (PRESERVATIVE FREE) 10 ML IV (09:10)
[2024-04-23] MEDS: DESENEX/MITRAZOL/ZEASORB 1 APPLIC TOPICAL ×2 (09:10→21:20)
[2024-04-23] MEDS: PROTONIX IV 40 MG IV (09:11)
[2024-04-23] MEDS: VANCOCIN 150 IV (09:15)
--- NOTE | 2024-04-23 12:17 | W.PN.URO.CBU ---
Today's Communication / Plan
-
continue stents/sp tube
Assessment / Plan
-
urosepsis with huge right side stone burden including right upj and ureteral stone and small left ureteral stones
perinephric fluid collections/possible abscess vs forniceal rupture
neurogenic bladder with chronic sp tube and cystitis
s/p bilateral stent placement
pt's objective parameters improving significantly
continue iv antibx/medical resuscitation
continue sp tube and stents
based on ct findings- no indication for drainage attempt at this tova
did review with med team and
Diagnosis
-
Date of Service: April 23, 2024
-
Patient Diagnosis:
urosepsis
obstructing stones
perinephric fluid collections/abscess
Post Op Day:
cysto/bilateral ureteral stents/sp tube exchange 04/19
Subjective
-
pt still poorly responsive
no fevers
wbc 15
ucx- enterococcus and proteus/ blood cx proteus
urine ninfa
CT PERFORMED YESTERDAY- STENTS IN GOOD POSITION/ NO HYDRO- SMALL STABLE FLUID COLLECTION- NO AIR OR FEATURES CONCERNING FOR ABSCESS- discussed with IR- as drainage would be difficult and low prob of abscess- will observe for now
Objective
-
Vital Signs
Temp Pulse Resp BP Pulse Ox
98.8 F 99 16 141/87 90
04/23/24 11:50 04/23/24 11:50 04/23/24 11:50 04/23/24 11:50 04/23/24 11:50
Intake and Output
04/22/24 04/23/24 04/24/24
06:59 06:59 06:59
Intake Total 3445 / 3565 3675 / 3675
Output Total 1055 / 1055 400 / 400
Balance 2390 / 2510 3275 / 3275
Intake:
Oral fluids 525 / 525
IV fluids (Total) 2760 / 2880 3000 / 3000
D5/0.45%NaCl 1,000 ml @ 120 mls 2760 / 2880 1080 / 1080
/hr IV .Q8H20M [facility] Rx#:[id number]
IV piggybacks 425 / 425 150 / 150
Feeding tube flush amount 260 / 260
Output:
Suprapubic output 1055 / 1055 400 / 400
Laboratory Results
04/23/24 06:09
04/23/24 06:09
Physical Exam
-
General - poorly responsive
Abdomen - obese, much less tender, sp tube in place
--- NOTE | 2024-04-23 12:23 | W.PN.HOSP.TC ---
Today's Communication/Plan
-
cont current management
repeat blood cultures
Assessment / Plan
Assessment / Plan
Patient is a 68-year-old female who is essentially bedbound due to multiple sclerosis with chronic baclofen, chronic prednisone therapy with suprapubic catheter for neurogenic bladder, previous history of septic shock secondary to obstructive
uropathy back in July to August 2023 presents to the ER with letharge, flank pain and fever.
Proteus mirabilis bacteremia with Enterococcus in UTI causing Severe sepsis due to obstructing renal stones with abscesses vs forniceal rupture noted on CAT scan--patient received normal saline sepsis bolus dosing, IV vancomycin, IV cefepime in
ED--transition to IV vanco/rocephin by ID--apprec urology/clinical trial head/infectious disease--s/p stent placement in OR-- off stress dose steroids on daily prednisone 10--lactic acidosis resolved--follow blood and urine cultures--repeat CT imaging
without need for drainage
TME due to above? vs other---has small bore feeding tube--cont speech evals--still has not passed swallow eval
Acute kidney injury--likely due to obstructive uropathy--follow with IV fluids and relief of obstruction--resolved
paroxysmal afib--s/p cardizem drip--back on oral dilt
hypokalemia--replete
Multiple sclerosis--patient on chronic prednisone therapy 10 mg p.o. daily--given severity of illness, s/p stress dose steroids-- now back on home prednisone
Neurogenic bladder--from multiple sclerosis--continue suprapubic tube
Mildly elevated liver function test--likely from fever, infection, medications--trend for now
DVT prophylaxis--NO anticoagulants--SCDs
CODE STATUS-- full code
Anticipated Discharge: > 48 hours
Subjective/Interval History
-
Date of Service: April 23, 2024
pt said hello--no other conversation
Objective Data
-
Labs:
Laboratory Results
04/23/24
06:09
WBC 15.0 H
Hgb 11.5 L
Hct 36.4 L
Plt Count 252 D
Sodium 142
Potassium 3.3 L
Chloride 116 H
Carbon Dioxide 16 L
BUN 12
Creatinine 0.5 L
Glucose 94
Calcium 10.3 H
Total Bilirubin 1.7 H
AST 101 H
ALT 53 H
Alkaline Phosphatase 184 H
Vital Signs:
max temp for 24 hours
04/23/24
03:26
Temp 98.6 F
Vital Signs
Temp Pulse Resp BP Pulse Ox
98.8 F 99 16 141/87 90
04/23/24 11:50 04/23/24 11:50 04/23/24 11:50 04/23/24 11:50 04/23/24 11:50
I&O
04/22/24 04/23/24 04/24/24
06:59 06:59 06:59
Intake Total 3445 / 3565 3675 / 3675
Output Total 1055 / 1055 400 / 400
Balance 2390 / 2510 3275 / 3275
Review of Systems
-
Unable to obtain full review of systems at this time due to: Acuity
Physical Exam
-
General: Well Developed, Well Nourished and No Apparent Distress
HEENT: Normocephalic and Atraumatic
Respiratory: Clear to Auscultation; Negative Wheezes or Rhonchi
Cardiac: Regular Rhythm and S1/S2; Negative Murmur
GI: Soft, Nontender, Nondistended and Normal Bowel Sounds
Musculoskeletal: No Clubbing, No Cyanosis and No Edema
Neuro: Awake
--- NOTE | 2024-04-23 12:50 | CM ---
Patient seen at bedside with physician and . Patient indicated that he was still planning on taking patient home with him as caregiver, and not interested in SNF. Patient not medically ready for discharge at this time per physician.
CM will continue to follow for discharge planning needs.
Plan; home with , VN vs SNF
--- NOTE | 2024-04-23 13:12 | W.PN.ID1 ---
Date of Service
Date of Service: April 23, 2024
Today's Communication
Continue Vancomycin/ceftriaxone.
Assessment / Plan
# Complicated UTI with right obstructive uropathy and perinephric abscesses vs forniceal rupture
# Proteus bacteremia, source
# Leukocytosis trended up today.
# Afib with RVR, rate controlled
# PCN allergy, tolerates cephalosporin
# Neurogenic bladder with SPC
# Multiple sclerosis on chronic low dose prednisone
-04/19 s/p bilateral ureter stents, SPC exchange
- Ucx: Proteus, Enterococcus
- Bcx 2 of 2 sets: Proteus
- Repeat blood cx neg to date
- Per Urologist and IR, no indication for drainage attempt at this time
-Continue Vancomycin and ceftriaxone. (d5)
- Follow wbc.
#Additional Past Medical History:
Multiple sclerosis chronic prednisone 5mg
Neurogenic bladder with chronic suprapubic catheter
Paroxysmal atrial fibrillation
Nephrolithiasis with history of obstructive uropathy
Class III obesity BMI 39.5
Appendectomy
Tubal ligation
Left groin infected hematoma I+D
Chief Complaint
-: UTI and Bacteremia
Subjective / Review of Systems
at bedside. Still with Dobhoff tube.
Vital Signs / Physical Exam
Vital Signs
Vital Signs
Temp Pulse Resp BP Pulse Ox
98.8 F 99 16 141/87 90
04/23/24 11:50 04/23/24 11:50 04/23/24 11:50 04/23/24 11:50 04/23/24 11:50
Physical Exam
Constitutional: Acutely Ill
Pulmonary: Clear
Gastrointestinal: Soft, Non Tender and Non Distended
Genito-Urinary: Turbid Urine (SPC)
Extremities: Edema
Neurological: Tremors (lethargic)
Objective Data
Lab Data
Lab Results
04/23/24 06:09
04/23/24 06:09
PT 15.9 Sec (11.4-14.6) H 04/19/24 19:56
INR 1.29 04/19/24 19:56
APTT 37.7 Sec (23.4-35.0) H 04/19/24 19:56
Estimated Creat Clear 105 ml/min 04/23/24 06:09
Lactic Acid Cancelled 04/20/24 12:20
Total Bilirubin 1.7 mg/dl (0.2-1.3) H 04/23/24 06:09
AST 101 U/L (14-36) H 04/23/24 06:09
ALT 53 U/L (0-35) H 04/23/24 06:09
Alkaline Phosphatase 184 U/L (38-126) H 04/23/24 06:09
Most recent labs reviewed.
Micro Results:
04/23/24 12:55 Blood Culture - Pending
Blood/Venous
04/23/24 12:26 Blood Culture - Pending
Blood/Venous
04/19/24 11:57 Urine Culture - Final
Urine Proteus mirabilis
Enterococcus faecalis
04/21/24 05:27 Blood Culture - Preliminary
Blood/Venous No Growth in 48 hours- Final report to follow
04/19/24 11:23 Blood Culture - Final
Blood/Venous Proteus mirabilis
Gram Stain - Final
04/19/24 11:23 Blood Culture - Preliminary
Blood/Venous Proteus mirabilis
Gram Stain - Preliminary
04/19/24 CT c/a/p wo: 1.0 cm OBSTRUCTING CALCULUS in the RIGHT PROXIMAL URETER. Suspected ACUTE RIGHT PYELONEPHRITIS. MULTIPLE FLUID COLLECTIONS in the RIGHT RETROPERITONEUM inferior to the right kidney (probably retroperitoneal abscesses given the
history of fever and sepsis, although aseptic partially liquefied retroperitoneal hematomas are also possible). Nonobstructing calculi in the left ureteropelvic junction.
04/22/24 CT a/p wo contrast: Interval placement of bilateral double-J ureteral stents, both in appropriate position. No evidence for hydronephrosis/obstructive uropathy. Again seen are multiple right-sided intrarenal calculi. Couple of small calculi
within the midpole of the left kidney. Irregular/multiloculated low-attenuation fluid seen within the inferior right retroperitoneum, similar appearance compared to prior CT. The largest locule within the right lower quadrant measures approximately
4.7 x 1.9 cm in cross-section. Limited evaluation for abscess without intravenous contrast, however no locules of gas identified within these collections or significant enlargement compared to the prior CT.
[2024-04-23] MEDS: ROCEPHIN 1000 MG IV (15:00)
[2024-04-23] MEDS: STERILE WATER FOR INJECTION 10 ML IV (15:00)
[2024-04-23 15:50] LABS: Glucose - Point of Care 102 mg/dl (70-99)
[2024-04-23 19:18] LABS: Glucose - Point of Care 86 mg/dl (70-99)
[2024-04-24] VITALS (9 sets, daily range): BP systolic 101–152; BP diastolic 64–90
[2024-04-24 00:39] LABS: Glucose - Point of Care 88 mg/dl (70-99)
[2024-04-24 06:13] LABS: Glucose - Point of Care 87 mg/dl (70-99)
[2024-04-24 06:52] LABS: Hematocrit 40.3 % (37.0-47.0); Hemoglobin 12.5 g/dL (12.0-16.0); Mean Corpuscular Hgb 29.1 pg (27.0-31.0); Mean Corpuscular Volume 93.9 fL (81.0-99.0); Mean Platelet Volume 10.8 fL (7.4-10.4); Platelet Count 313 10^3/uL (130-400); Red Blood Cell Count 4.29 10^6/uL (4.20-5.40); Red Cell Dist. Width 16.3 % (11.5-14.5); White Blood Cell Count 19.3 10^3/uL (4.8-10.8)
[2024-04-24 07:16] LABS: ALT (SGPT) 65 U/L (0-35); AST (SGOT) 97 U/L (14-36); Albumin 2.7 g/dl (3.5-5.0); Alkaline Phosphatase 242 U/L (38-126); Blood Urea Nitrogen 12 mg/dl (7-17); Calcium 10.6 mg/dl (8.4-10.2); Carbon Dioxide 17 mmol/L (22-30); Chloride 114 mmol/L (98-107); Estimated Creatinine Clearance 105 ml/min; Glucose 99 mg/dl (70-99); Magnesium 1.9 mg/dl (1.6-2.3); Potassium 3.4 mmol/L (3.5-5.1); Sodium 144 mmol/L (135-145); Total Bilirubin 1.8 mg/dl (0.2-1.3); Total Protein 6.1 g/dl (6.3-8.2); eGFR > 60.00
[2024-04-24 07:25] LABS: Vancomycin Random 14.3 ug/ml
--- NOTE | 2024-04-24 07:49 | PHA.VAN.FU ---
Vancomycin Assessment / Plan
- Assessment
Renal Function: Stable
WBC's are: Trending Up
In the past 24 hrs, patient has been: Afebrile
Concomitant Antimicrobials: ceftriaxone
- Assessment - Therapeutic Drug Monitoring
Random Level: 14.3 - drawn ~21 hours post 750 mg dose
- Dosing Plan
Continue: dose by random level for now
Dosing by Level: Re-dose today (750 mg x 1 dose)
- Monitoring Plan
Random Level: 0600 04/25/24
- Follow Up
Pharmacy will continue to follow.
Vancomycin Follow UP
- -
Patient Age: 68
Patient Sex: Female
Vancomycin Day #: 6 (first dose 04/19)
Indication: Genito-Urinary Tract
Requesting Provider: Dr. Brown
Pertinent Antimicrobial Allergies:
moxifloxacin - swelling; tolerates ciprofloxacin
penicillins - unknown, > 30 y/a, tolerated cefazolin
Height / Weight:
Height 5 ft 3 in
Actual Weight 106.866 kg
Pertinent Past Medical History: BMI ~40, MS
- Vital Signs / Lab Results
Temp Pulse Resp BP Pulse Ox
100.0 F 110 16 131/80 92
04/24/24 03:40 04/24/24 03:40 04/24/24 03:40 04/24/24 03:40 04/24/24 03:40
Lab Results - Hematology
04/22/24 04/23/24 04/24/24
04:45 06:09 06:23
WBC 12.5 H 15.0 H 19.3 H
Lab Results - Chemistry
04/22/24 04/23/24 04/24/24
04:45 06:09 06:20
BUN 18 H 12 12
Creatinine 0.6 0.5 L 0.6
Estimated Creat Clear 104 105 105
Albumin 2.1 L 2.4 L 2.7 L
Microbiology Results
04/21/24 05:27 Blood Culture - Preliminary
Blood/Venous No Growth in 72 hours- Final report to follow
04/19/24 11:57 Urine Culture - Final
Urine Proteus mirabilis
Enterococcus faecalis
04/19/24 11:23 Blood Culture - Final
Blood/Venous Proteus mirabilis
Gram Stain - Final
04/19/24 11:23 Blood Culture - Preliminary
Blood/Venous Proteus mirabilis
Gram Stain - Preliminary
Therapeutic Drug Monitoring
Random Vancomycin 14.3 ug/ml 04/24/24 06:20
--- NOTE | 2024-04-24 07:55 | W.PN.URO.CBU ---
Today's Communication / Plan
-
attempt at IR drainage of fluid collection
Assessment / Plan
-
urosepsis with huge right side stone burden including right upj and ureteral stone and small left ureteral stones
perinephric fluid collections/possible abscess vs forniceal rupture
neurogenic bladder with chronic sp tube and cystitis
s/p bilateral stent placement
now clinical status heading back in the wrong direction with temps/rising wbc
ct indicated stents in good position with no hydro or obstruction
again reviewed with IR- we are not certain that perinephric fluid is sig or abscess- but at this point will attempt drainage to try and reverse course if it is indeed infected fluid- although this may be very difficult given pt's condition/body
habitus and small target
i did review with IR and and will touch base with med team
Diagnosis
-
Date of Service: April 24, 2024
-
Patient Diagnosis:
urosepsis
obstructing stones
perinephric fluid collections/abscess
Post Op Day:
cysto/bilateral ureteral stents/sp tube exchange 04/19
Subjective
-
pt poorly responsive
had had some temps/ wbc up
Objective
-
Vital Signs
Temp Pulse Resp BP Pulse Ox
100.0 F 110 16 131/80 92
04/24/24 03:40 04/24/24 03:40 04/24/24 03:40 04/24/24 03:40 04/24/24 03:40
Intake and Output
04/23/24 04/24/24 04/25/24
06:59 06:59 06:59
Intake Total 3675 / 3675
Output Total 400 / 400 675 / 675
Balance 3275 / 3275 -675 / -675
Intake:
Oral fluids 525 / 525
IV fluids (Total) 3000 / 3000
D5/0.45%NaCl 1,000 ml @ 120 mls 1080 / 1080
/hr IV .Q8H20M [facility] Rx#:[id number]
IV piggybacks 150 / 150
Output:
Urine, Lopez 300 / 300
Suprapubic output 400 / 400 375 / 375
Laboratory Results
04/24/24 06:23
04/24/24 06:20
Review of Systems
-
Unable to obtain full review of systems at this time due to: Other (pt can not verbalize)
Physical Exam
-
General - ill appearing
Abdomen - no elicited tenderness/ sp tube in place
[2024-04-24] MEDS: VANCOCIN 150 IV (08:44)
[2024-04-24] MEDS: NSS (PRESERVATIVE FREE) 10 ML IV (08:45)
[2024-04-24] MEDS: CARDIZEM 30 MG TUBE ×3 (08:46→21:16)
[2024-04-24] MEDS: LIORESAL 5 MG TUBE ×3 (08:46→21:16)
[2024-04-24] MEDS: DELTASONE 10 MG TUBE (08:46)
[2024-04-24] MEDS: PROTONIX IV 40 MG IV (08:46)
[2024-04-24] MEDS: CELEXA 10 MG TUBE (08:46)
[2024-04-24] MEDS: DESENEX/MITRAZOL/ZEASORB 1 APPLIC TOPICAL ×2 (08:47→21:17)
--- NOTE | 2024-04-24 09:00 | PTCARENOTE ---
Patient not following to commands. Vitals 98.4 temp, 120 heart rate, a8 respirations, 152/86 BP and 97% on room air. Eyes are opened but not responsive to questions. Dr. Lizarraga notified . Will continue to monitor.
--- NOTE | 2024-04-24 12:09 | W.PN.HOSP.TC ---
Today's Communication/Plan
-
check CT head, chest, ABG
for attempted aspiration
Assessment / Plan
Assessment / Plan
Patient is a 68-year-old female who is essentially bedbound due to multiple sclerosis with chronic baclofen, chronic prednisone therapy with suprapubic catheter for neurogenic bladder, previous history of septic shock secondary to obstructive
uropathy back in July to August 2023 presents to the ER with letharge, flank pain and fever.
Proteus mirabilis bacteremia with Enterococcus in UTI causing Severe sepsis due to obstructing renal stones with abscesses vs forniceal rupture noted on CAT scan--patient received normal saline sepsis bolus dosing, IV vancomycin, IV cefepime in
ED--transition to IV vanco/rocephin by ID--apprec urology/estate agent/infectious disease--s/p stent placement in OR-- off stress dose steroids on daily prednisone 10--lactic acidosis resolved--follow blood and urine cultures--repeat CT imaging
without need for drainage but going for attempted aspiration due to rising WBC count
TME due to above? vs other---has small bore feeding tube--cont speech evals--still has not passed swallow eval--check head CT, chest CT, ABG....
Acute kidney injury--likely due to obstructive uropathy--follow with IV fluids and relief of obstruction--resolved
paroxysmal afib--s/p cardizem drip--back on oral dilt
hypokalemia--replete
Multiple sclerosis--patient on chronic prednisone therapy 10 mg p.o. daily--given severity of illness, s/p stress dose steroids-- now back on home prednisone
Neurogenic bladder--from multiple sclerosis--continue suprapubic tube
Mildly elevated liver function test--likely from fever, infection, medications--trend for now
DVT prophylaxis--NO anticoagulants--SCDs
CODE STATUS-- full code--until definitive answers obtained as to mental status, wants to maintain full code
Anticipated Discharge: > 48 hours
Subjective/Interval History
-
Date of Service: April 24, 2024
pt still unresponsive
Objective Data
-
Labs:
Laboratory Results
04/24/24 04/24/24 04/24/24
06:20 06:23 12:05
WBC 19.3 H
Hgb 12.5
Hct 40.3
Plt Count 313 D
HCO3 Pending
Sodium 144
Potassium 3.4 L
Chloride 114 H
Carbon Dioxide 17 L
BUN 12
Creatinine 0.6
Glucose 99
Calcium 10.6 H
Total Bilirubin 1.8 H
AST 97 H
ALT 65 H
Alkaline Phosphatase 242 H
Vital Signs:
max temp for 24 hours
04/24/24
03:40
Temp 100.0 F
Vital Signs
Temp Pulse Resp BP Pulse Ox
98.4 F 120 18 152/86 97
04/24/24 07:55 04/24/24 08:46 04/24/24 07:55 04/24/24 08:46 04/24/24 09:30
I&O
04/23/24 04/24/24 04/25/24
06:59 06:59 06:59
Intake Total 3675 / 3675
Output Total 400 / 400 675 / 675
Balance 3275 / 3275 -675 / -675
Review of Systems
-
Unable to obtain full review of systems at this time due to: Acuity
Physical Exam
-
General: Well Developed, Well Nourished, No Apparent Distress and Morbidly Obese
HEENT: Normocephalic, Atraumatic and Other (NGT)
Respiratory: Clear to Auscultation; Negative Wheezes, Rales or Rhonchi
Cardiac: Regular Rhythm and S1/S2; Negative Murmur
GI: Soft, Nontender, Nondistended and Normal Bowel Sounds
Musculoskeletal: No Clubbing and No Cyanosis; Negative No Edema (x4 ext)
Neuro: Negative Awake, Alert or Sedated
Psych: Calm
[2024-04-24 13:01] LABS: Glucose - Point of Care 113 mg/dl (70-99)
[2024-04-24] MEDS: CARDIZEM TUBE (13:17)
[2024-04-24 13:19] LABS: B.E. -4.1 mmol/L; HCO3 19.8 mmol/L (21-28); O2 Saturation % 95.1 % (94-98); PCO2 32 mmHg (32-35); PO2 64 mmHg (83-108)
--- NOTE | 2024-04-24 13:49 | W.PN.ID1 ---
Date of Service
Date of Service: April 24, 2024
Today's Communication
Resume cefepime.
Continue Vanco.
Drain perinephric abscess if able.
Assessment / Plan
# Complicated UTI with right obstructive uropathy and perinephric abscesses vs forniceal rupture. Ucx: Prteus, Enterococcus
# Proteus bacteremia, source
# Leukocytosis trending up
# Fever
# Afib with RVR, rate controlled
# PCN allergy, tolerates cephalosporin
# Neurogenic bladder with SPC
# Multiple sclerosis on chronic low dose prednisone
-04/19 s/p bilateral ureter stents, SPC exchange
- Ucx: Proteus, Enterococcus
- Bcx 2 of 2 sets: Proteus
- Repeat blood cx neg to date
- Per Urologist attempt IR drainage of perinephric fluid collection due to new fever, rising wbc. Send fluid for culture.
- Change ceftriaxone back to cefepime 1 g IV q6 in case of Amp-C beta-lactamase producing Proteus.
-Continue Vancomycin (d6) for enterococcal coverage (PCN allergy)
- Follow wbc, temps.
#Additional Past Medical History:
Multiple sclerosis chronic prednisone 5mg
Neurogenic bladder with chronic suprapubic catheter
Paroxysmal atrial fibrillation
Nephrolithiasis with history of obstructive uropathy
Class III obesity BMI 39.5
Appendectomy
Tubal ligation
Left groin infected hematoma I+D
Chief Complaint
-: UTI and Bacteremia
Vital Signs / Physical Exam
Vital Signs
Vital Signs
Temp Pulse Resp BP Pulse Ox
99.1 F 110 18 117/71 93
04/24/24 13:20 04/24/24 13:20 04/24/24 13:20 04/24/24 13:20 04/24/24 13:25
Selected Entries
05/24/24
11:35
Temp 100.7 F H
Physical Exam
Constitutional: Acutely Ill
Objective Data
Lab Data
Lab Results
04/24/24 06:23
04/24/24 06:20
PT 15.9 Sec (11.4-14.6) H 04/19/24 19:56
INR 1.29 04/19/24 19:56
APTT 37.7 Sec (23.4-35.0) H 04/19/24 19:56
Estimated Creat Clear 105 ml/min 04/24/24 06:20
Lactic Acid Cancelled 04/20/24 12:20
Total Bilirubin 1.8 mg/dl (0.2-1.3) H 04/24/24 06:20
AST 97 U/L (14-36) H 04/24/24 06:20
ALT 65 U/L (0-35) H 04/24/24 06:20
Alkaline Phosphatase 242 U/L (38-126) H 04/24/24 06:20
Most recent labs reviewed.
Micro Results:
04/23/24 12:55 Blood Culture - Preliminary
Blood/Venous No Growth in 24 hours- Final report to follow
04/23/24 12:26 Blood Culture - Preliminary
Blood/Venous No Growth in 24 hours- Final report to follow
04/21/24 05:27 Blood Culture - Preliminary
Blood/Venous No Growth in 72 hours- Final report to follow
04/19/24 11:57 Urine Culture - Final
Urine Proteus mirabilis
Enterococcus faecalis
04/19/24 11:23 Blood Culture - Final
Blood/Venous Proteus mirabilis
Gram Stain - Final
04/19/24 11:23 Blood Culture - Preliminary
Blood/Venous Proteus mirabilis
Gram Stain - Preliminary
04/19/24 CT c/a/p wo: 1.0 cm OBSTRUCTING CALCULUS in the RIGHT PROXIMAL URETER. Suspected ACUTE RIGHT PYELONEPHRITIS. MULTIPLE FLUID COLLECTIONS in the RIGHT RETROPERITONEUM inferior to the right kidney (probably retroperitoneal abscesses given the
history of fever and sepsis, although aseptic partially liquefied retroperitoneal hematomas are also possible). Nonobstructing calculi in the left ureteropelvic junction.
04/22/24 CT a/p wo contrast: Interval placement of bilateral double-J ureteral stents, both in appropriate position. No evidence for hydronephrosis/obstructive uropathy. Again seen are multiple right-sided intrarenal calculi. Couple of small calculi
within the midpole of the left kidney. Irregular/multiloculated low-attenuation fluid seen within the inferior right retroperitoneum, similar appearance compared to prior CT. The largest locule within the right lower quadrant measures approximately
4.7 x 1.9 cm in cross-section. Limited evaluation for abscess without intravenous contrast, however no locules of gas identified within these collections or significant enlargement compared to the prior CT.
--- NOTE | 2024-04-24 14:24 | CM ---
Reviewed the chart notes and spoke with the patient's spouse and family at the bedside. Per ID notes, resume cefepime. CM continues to be available to patient/family and is monitoring medical plan for needs at discharge.
Plan: Per the spuose, discharge plans will depend on the patient's prognosis after testing.
--- NOTE | 2024-04-24 14:49 | W.PN.UPDATE ---
Update Note
Progress Note Update
-CT guided aspiration of RLQ/inferior right perinephric fluid collection yielded bloody/purulent fluid. Proceeded to place 8.5F drain into the collection with about 10 mL of fluid removed. This drain may ultimately need repositioning at a later
date.
- Drain orders placed.
[2024-04-24 17:36] LABS: Glucose - Point of Care 98 mg/dl (70-99)
[2024-04-24] MEDS: MAXIPIME 1000 MG IV (17:40)
[2024-04-24] MEDS: STERILE WATER FOR INJECTION 10 ML IV (17:40)
[2024-04-25] MEDS: MAXIPIME 1000 MG IV ×5 (00:02→23:15)
[2024-04-25] MEDS: STERILE WATER FOR INJECTION 10 ML IV ×5 (00:02→23:16)
[2024-04-25] MEDS: FLUSH (NSS) 2 FLUSH IV ×2 (00:04→23:17)
[2024-04-25 00:07] LABS: Glucose - Point of Care 99 mg/dl (70-99)
[2024-04-25 03:48] VITALS: BP 116/61
[2024-04-25 05:57] VITALS: BMI 42.2
[2024-04-25 06:28] LABS: Glucose - Point of Care 119 mg/dl (70-99)
[2024-04-25] MEDS: NOVOLOG FLEXPEN-LOW RESISTANCE SC (06:30)
[2024-04-25 06:47] LABS: Hematocrit 35.5 % (37.0-47.0); Mean Corpuscular Hgb 29.5 pg (27.0-31.0); Mean Corpuscular Volume 95.2 fL (81.0-99.0); Mean Platelet Volume 10.8 fL (7.4-10.4); Platelet Count 305 10^3/uL (130-400); Red Blood Cell Count 3.73 10^6/uL (4.20-5.40); Red Cell Dist. Width 16.3 % (11.5-14.5); White Blood Cell Count 14.8 10^3/uL (4.8-10.8)
[2024-04-25 07:01] LABS: ALT (SGPT) 48 U/L (0-35); AST (SGOT) 75 U/L (14-36); Albumin 2.3 g/dl (3.5-5.0); Alkaline Phosphatase 201 U/L (38-126); Blood Urea Nitrogen 12 mg/dl (7-17); Calcium 10.5 mg/dl (8.4-10.2); Carbon Dioxide 21 mmol/L (22-30); Chloride 116 mmol/L (98-107); Estimated Creatinine Clearance 106 ml/min; Glucose 117 mg/dl (70-99); Potassium 3.2 mmol/L (3.5-5.1); Sodium 144 mmol/L (135-145); Total Bilirubin 1.3 mg/dl (0.2-1.3); Total Protein 5.4 g/dl (6.3-8.2); eGFR > 60.00
[2024-04-25 07:26] LABS: Vancomycin Random 12.5 ug/ml
[2024-04-25 07:38] VITALS: BP 134/75
--- NOTE | 2024-04-25 08:16 | PHA.VAN.FU ---
Vancomycin Assessment / Plan
- Assessment
Renal Function: Stable
WBC's are: Trending Down
In the past 24 hrs, patient has been: Febrile (Tmax = 100.7)
Concomitant Antimicrobials: Cefepime
- Assessment - Therapeutic Drug Monitoring
Random Level: R = 12.5 ~ 21hrs post Vanc 750mg
- Dosing Plan
Continue: Dose by level
Dosing by Level: Re-dose today (Vanc 750mg)
- Monitoring Plan
Random Level: 04/26 with AM labs
- Follow Up
Pharmacy will continue to follow.
Vancomycin Follow UP
- -
Patient Age: 68
Patient Sex: Female
Vancomycin Day #: 7 (first dose 04/19)
Indication: Genito-Urinary Tract
Requesting Provider: Dr. Brown
Pertinent Antimicrobial Allergies:
moxifloxacin - swelling; tolerates ciprofloxacin
penicillins - unknown, > 30 y/a, tolerated cefazolin
Height / Weight:
Height 5 ft 3 in
Actual Weight 108.091 kg
Pertinent Past Medical History: BMI ~40, MS
- Vital Signs / Lab Results
Temp Pulse Resp BP Pulse Ox
98.7 F 85 16 134/75 95
04/25/24 07:38 04/25/24 07:38 04/25/24 07:38 04/25/24 07:38 04/25/24 07:38
Lab Results - Hematology
04/23/24 04/24/24 04/25/24
06:09 06:23 06:00
WBC 15.0 H 19.3 H 14.8 H
Lab Results - Chemistry
04/23/24 04/24/24 04/25/24
06:09 06:20 06:00
BUN 12 12 12
Creatinine 0.5 L 0.6 0.6
Estimated Creat Clear 105 105 106
Albumin 2.4 L 2.7 L 2.3 L
Microbiology Results
04/21/24 05:27 Blood Culture - Preliminary
Blood/Venous No Growth in 4 days- Final report to follow
04/24/24 13:58 Gram Stain - Preliminary
Kidney - Right
04/23/24 12:55 Blood Culture - Preliminary
Blood/Venous No Growth in 24 hours- Final report to follow
04/23/24 12:26 Blood Culture - Preliminary
Blood/Venous No Growth in 24 hours- Final report to follow
04/19/24 11:57 Urine Culture - Final
Urine Proteus mirabilis
Enterococcus faecalis
Therapeutic Drug Monitoring
Random Vancomycin 12.5 ug/ml 04/25/24 06:00
[2024-04-25] MEDS: CELEXA 10 MG TUBE (09:07)
[2024-04-25] MEDS: LIORESAL 5 MG TUBE ×3 (09:07→21:12)
[2024-04-25] MEDS: CARDIZEM 30 MG TUBE ×4 (09:07→21:12)
[2024-04-25] MEDS: DELTASONE 10 MG TUBE (09:07)
[2024-04-25] MEDS: PROTONIX IV 40 MG IV (09:08)
[2024-04-25] MEDS: NSS (PRESERVATIVE FREE) 10 ML IV (09:08)
[2024-04-25] MEDS: VANCOCIN 150 IV (09:08)
[2024-04-25] MEDS: DESENEX/MITRAZOL/ZEASORB 1 APPLIC TOPICAL ×2 (09:09→19:42)
--- NOTE | 2024-04-25 10:14 | W.PN.URO.CBU ---
Today's Communication / Plan
-
Continue antibiotics as perID
Await culture for right perinephric fluid collection
Assessment / Plan
-
urosepsis with huge right side stone burden including right upj and ureteral stone and small left ureteral stones
perinephric fluid collections/possible abscess vs forniceal rupture s/p percutaneous drainage 04/24/24
neurogenic bladder with chronic sp tube and cystitis
s/p bilateral stent placement
Diagnosis
-
Date of Service: April 25, 2024
-
Patient Diagnosis:
urosepsis: Proteus in blood; Proteus and Enterococcus in urine
obstructing stones
perinephric fluid collections/abscess s/p percutaneous drainage 04/24/24
s/p cysto/bilateral ureteral stents/sp tube exchange 04/19
Subjective
-
Somnolent
Comfortable
Objective
-
Vital Signs
Temp Pulse Resp BP Pulse Ox
98.7 F 85 16 134/75 95
04/25/24 07:38 04/25/24 09:07 04/25/24 07:38 04/25/24 09:07 04/25/24 07:38
Intake and Output
04/24/24 04/25/24 04/26/24
06:59 06:59 06:59
Intake Total 600 / 600
Output Total 675 / 675 810 / 810
Balance -675 / -675 -210 / -210
Intake:
Oral fluids 0 / 0
Tube feeding 300 / 300
Feeding tube flush amount 300 / 300
Output:
Drain Output (Total)
Right Abdomen Placed in IR
Urine, Lopez 300 / 300 350 / 350
Suprapubic output 375 / 375 450 / 450
Laboratory Results
04/25/24 06:00
04/25/24 06:00
Review of Systems
-
Constitutional: Fatigue
Physical Exam
-
General - no acute distress
Abdomen - soft, SP tube to gravity
[2024-04-25 10:57] VITALS: BP 131/68
--- NOTE | 2024-04-25 10:57 | W.PN.HOSP.TC ---
Today's Communication/Plan
-
cont vanco/cefepime
WBC improved
await aspirate culture
Assessment / Plan
Assessment / Plan
Patient is a 68-year-old female who is essentially bedbound due to multiple sclerosis with chronic baclofen, chronic prednisone therapy with suprapubic catheter for neurogenic bladder, previous history of septic shock secondary to obstructive
uropathy back in July to August 2023 presents to the ER with lethargy, flank pain and fever.
Proteus mirabilis bacteremia with Enterococcus UTI causing Severe sepsis due to obstructing renal stones with abscesses vs forniceal rupture noted on CAT scan--patient received normal saline sepsis bolus dosing, IV vancomycin, IV cefepime in
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
cultures--repeat CT imaging without need for drainage but went for aspiration with drain placement due to rising WBC count--culture from aspirate pending--last positive blood culture was 04/19
TME due to above? vs other---has small bore feeding tube--cont speech evals--still has not passed swallow eval-- head CT, chest CT, & ABG all without any findings for mental status depression....
Acute kidney injury--likely due to obstructive uropathy--follow with IV fluids and relief of obstruction--resolved
paroxysmal afib--s/p cardizem drip--back on oral diltiazem
hypokalemia--replete
Multiple sclerosis--patient on chronic prednisone therapy 10 mg p.o. daily--given severity of illness, s/p stress dose steroids-- now back on home prednisone
Neurogenic bladder--from multiple sclerosis--continue suprapubic tube
Mildly elevated liver function test--likely from fever, infection, medications--trend for now
DVT prophylaxis--NO anticoagulants--SCDs
CODE STATUS-- full code--until definitive answers obtained as to mental status, wants to maintain full code
Anticipated Discharge: > 48 hours
Subjective/Interval History
-
Date of Service: April 25, 2024
pt awake but not talkative
Objective Data
-
Labs:
Laboratory Results
04/25/24
06:00
WBC 14.8 H
Hgb 11.0 L
Hct 35.5 L
Plt Count 305
Sodium 144
Potassium 3.2 L
Chloride 116 H
Carbon Dioxide 21 L
BUN 12
Creatinine 0.6
Glucose 117 H
Calcium 10.5 H
Total Bilirubin 1.3
AST 75 H
ALT 48 H
Alkaline Phosphatase 201 H
Vital Signs:
max temp for 24 hours
04/24/24
11:35
Temp 100.7 F H
Vital Signs
Temp Pulse Resp BP Pulse Ox
98.7 F 85 16 134/75 96
04/25/24 07:38 04/25/24 09:07 04/25/24 07:38 04/25/24 09:07 04/25/24 10:17
I&O
04/24/24 04/25/24 04/26/24
06:59 06:59 06:59
Intake Total 600 / 600
Output Total 675 / 675 810 / 810
Balance -675 / -675 -210 / -210
Review of Systems
-
All other systems: Reviewed and negative
Physical Exam
-
General: Well Developed, Well Nourished, No Apparent Distress and Morbidly Obese
HEENT: Normocephalic, Atraumatic and Other (NGT at goal for tube feeds)
Respiratory: Clear to Auscultation; Negative Wheezes or Rhonchi
Cardiac: Regular Rhythm and S1/S2; Negative Murmur
GI: Soft, Nontender, Nondistended and Normal Bowel Sounds
Musculoskeletal: No Clubbing, No Cyanosis and No Edema
Neuro: Awake
--- NOTE | 2024-04-25 11:33 | W.PN.ID1 ---
Date of Service
Date of Service: April 25, 2024
Today's Communication
Continue Vanco/cefepime.
Assessment / Plan
# Complicated UTI with right obstructive uropathy and perinephric abscesses vs forniceal rupture. Ucx: Proteus, Enterococcus
# Proteus bacteremia, source
# Leukocytosis improved today
# Fever - resolving
# Afib with RVR, rate controlled
# PCN allergy, tolerates cephalosporin
# Neurogenic bladder with SPC
# Multiple sclerosis on chronic low dose prednisone
-04/19 s/p bilateral ureter stents, SPC exchange
- Ucx: Proteus, Enterococcus
- Bcx 2 of 2 sets: Proteus
- Repeat blood cx neg to date
- 04/25 IR drainage of perinephric fluid collection - bloody and purulent. Fluid gram-stain GPC, cx pending
-Continue cefepime 1 g IV q6 in case of Amp-C beta-lactamase producing Proteus.
-Continue Vancomycin (d7) for enterococcal coverage (PCN allergy)
- Follow wbc, temps.
#Additional Past Medical History:
Multiple sclerosis chronic prednisone 5mg
Neurogenic bladder with chronic suprapubic catheter
Paroxysmal atrial fibrillation
Nephrolithiasis with history of obstructive uropathy
Class III obesity BMI 39.5
Appendectomy
Tubal ligation
Left groin infected hematoma I+D
Chief Complaint
-: UTI and Bacteremia
Subjective / Review of Systems
at bedide.
Pt opens eyes to voice.
Vital Signs / Physical Exam
Vital Signs
Vital Signs
Temp Pulse Resp BP Pulse Ox
98.0 F 94 18 131/68 97
04/25/24 10:57 04/25/24 10:57 04/25/24 10:57 04/25/24 10:57 04/25/24 10:57
Physical Exam
Constitutional: Acutely Ill
Cardiovascular: Regular Rate and S1/S2
Extremities: Edema
Neurological: Other (lethargic)
Objective Data
Lab Data
Lab Results
04/25/24 06:00
04/25/24 06:00
PT 15.9 Sec (11.4-14.6) H 04/19/24 19:56
INR 1.29 04/19/24 19:56
APTT 37.7 Sec (23.4-35.0) H 04/19/24 19:56
Estimated Creat Clear 106 ml/min 04/25/24 06:00
Lactic Acid Cancelled 04/20/24 12:20
Total Bilirubin 1.3 mg/dl (0.2-1.3) 04/25/24 06:00
AST 75 U/L (14-36) H 04/25/24 06:00
ALT 48 U/L (0-35) H 04/25/24 06:00
Alkaline Phosphatase 201 U/L (38-126) H 04/25/24 06:00
Most recent labs reviewed.
Micro Results:
04/21/24 05:27 Blood Culture - Preliminary
Blood/Venous No Growth in 4 days- Final report to follow
04/24/24 13:58 Wound Culture - Pending
Kidney - Right Gram Stain - Preliminary
04/23/24 12:55 Blood Culture - Preliminary
Blood/Venous No Growth in 24 hours- Final report to follow
04/23/24 12:26 Blood Culture - Preliminary
Blood/Venous No Growth in 24 hours- Final report to follow
04/19/24 11:57 Urine Culture - Final
Urine Proteus mirabilis
Enterococcus faecalis
04/19/24 11:23 Blood Culture - Final
Blood/Venous Proteus mirabilis
Gram Stain - Final
04/19/24 11:23 Blood Culture - Preliminary
Blood/Venous Proteus mirabilis
Gram Stain - Preliminary
04/19/24 CT c/a/p wo: 1.0 cm OBSTRUCTING CALCULUS in the RIGHT PROXIMAL URETER. Suspected ACUTE RIGHT PYELONEPHRITIS. MULTIPLE FLUID COLLECTIONS in the RIGHT RETROPERITONEUM inferior to the right kidney (probably retroperitoneal abscesses given the
history of fever and sepsis, although aseptic partially liquefied retroperitoneal hematomas are also possible). Nonobstructing calculi in the left ureteropelvic junction.
04/22/24 CT a/p wo contrast: Interval placement of bilateral double-J ureteral stents, both in appropriate position. No evidence for hydronephrosis/obstructive uropathy. Again seen are multiple right-sided intrarenal calculi. Couple of small calculi
within the midpole of the left kidney. Irregular/multiloculated low-attenuation fluid seen within the inferior right retroperitoneum, similar appearance compared to prior CT. The largest locule within the right lower quadrant measures approximately
4.7 x 1.9 cm in cross-section. Limited evaluation for abscess without intravenous contrast, however no locules of gas identified within these collections or significant enlargement compared to the prior CT.
Care Review
Plan reviewed with: Physician (Dr. Lizarraga)
[2024-04-25 11:46] LABS: Glucose - Point of Care 166 mg/dl (70-99)
[2024-04-25] MEDS: NOVOLOG FLEXPEN-LOW RESISTANCE 1 UNITS SC ×2 (12:15→17:43)
[2024-04-25 15:42] VITALS: BP 121/70
[2024-04-25 17:42] LABS: Glucose - Point of Care 157 mg/dl (70-99)
[2024-04-25 19:40] VITALS: BP 124/70
[2024-04-25 23:51] VITALS: BP 137/78
[2024-04-26 00:11] LABS: Glucose - Point of Care 114 mg/dl (70-99)
[2024-04-26] MEDS: NOVOLOG FLEXPEN-LOW RESISTANCE SC ×3 (00:35→18:08)
[2024-04-26 03:08] VITALS: BP 134/79
[2024-04-26] MEDS: MAXIPIME 1000 MG IV ×3 (05:25→17:08)
[2024-04-26] MEDS: STERILE WATER FOR INJECTION 10 ML IV ×3 (05:27→17:08)
[2024-04-26] MEDS: FLUSH (NSS) 2 FLUSH IV (05:31)
[2024-04-26 05:51] VITALS: BMI 41.5
[2024-04-26 06:16] LABS: Glucose - Point of Care 122 mg/dl (70-99)
[2024-04-26 07:21] LABS: Hematocrit 37.1 % (37.0-47.0); Hemoglobin 11.7 g/dL (12.0-16.0); Mean Corp Hgb Conc. 31.5 g/dL (33.0-37.0); Mean Corpuscular Hgb 29.6 pg (27.0-31.0); Mean Corpuscular Volume 93.9 fL (81.0-99.0); Mean Platelet Volume 10.2 fL (7.4-10.4); Platelet Count 307 10^3/uL (130-400); Red Blood Cell Count 3.95 10^6/uL (4.20-5.40); White Blood Cell Count 13.5 10^3/uL (4.8-10.8)
[2024-04-26 07:39] LABS: ALT (SGPT) 51 U/L (0-35); AST (SGOT) 87 U/L (14-36); Albumin 2.6 g/dl (3.5-5.0); Alkaline Phosphatase 219 U/L (38-126); Blood Urea Nitrogen 13 mg/dl (7-17); Calcium 10.8 mg/dl (8.4-10.2); Carbon Dioxide 23 mmol/L (22-30); Chloride 114 mmol/L (98-107); Estimated Creatinine Clearance 105 ml/min; Glucose 129 mg/dl (70-99); Magnesium 2.1 mg/dl (1.6-2.3); Potassium 3.4 mmol/L (3.5-5.1); Sodium 144 mmol/L (135-145); Total Bilirubin 1.2 mg/dl (0.2-1.3); eGFR > 60.00
[2024-04-26 07:49] VITALS: BP 132/79
[2024-04-26 07:55] LABS: Vancomycin Random 13.5 ug/ml
--- NOTE | 2024-04-26 08:12 | PHA.VAN.FU ---
Vancomycin Assessment / Plan
- Assessment
Renal Function: Stable
WBC's are: Trending Down
In the past 24 hrs, patient has been: Afebrile
Concomitant Antimicrobials: Cefepime
- Assessment - Therapeutic Drug Monitoring
Random Level: R = 13.5 ~ 22hrs post Vanc 750mg
- Dosing Plan
Continue: Dose by level
Dosing by Level: Re-dose today (Vanc 750mg IV)
- Monitoring Plan
Random Level: 04/27 with AM labs
- Follow Up
Pharmacy will continue to follow.
Vancomycin Follow UP
- -
Patient Age: 68
Patient Sex: Female
Vancomycin Day #: 8 (first dose 04/19)
Indication: Genito-Urinary Tract
Requesting Provider: Dr. Brown
Pertinent Antimicrobial Allergies:
moxifloxacin - swelling; tolerates ciprofloxacin
penicillins - unknown, > 30 y/a, tolerated cefazolin
Height / Weight:
Height 5 ft 3 in
Actual Weight 106.254 kg
Pertinent Past Medical History: BMI ~40, MS
- Vital Signs / Lab Results
Temp Pulse Resp BP Pulse Ox
98.4 F 97 16 132/79 97
04/26/24 07:49 04/26/24 07:49 04/26/24 07:49 04/26/24 07:49 04/26/24 07:49
Lab Results - Hematology
04/24/24 04/25/24 04/26/24
06:23 06:00 07:09
WBC 19.3 H 14.8 H 13.5 H
Lab Results - Chemistry
04/24/24 04/25/24 04/26/24
06:20 06:00 07:09
BUN 12 12 13
Creatinine 0.6 0.6 0.5 L
Estimated Creat Clear 105 106 105
Albumin 2.7 L 2.3 L 2.6 L
Microbiology Results
04/21/24 05:27 Blood Culture - Final
Blood/Venous No Growth - Final Report
04/23/24 12:55 Blood Culture - Preliminary
Blood/Venous No Growth in 48 hours- Final report to follow
04/24/24 13:58 Wound Culture - Preliminary
Kidney - Right Enterococcus species
Gram Stain - Preliminary
04/23/24 12:26 Blood Culture - Preliminary
Blood/Venous No Growth in 48 hours- Final report to follow
Therapeutic Drug Monitoring
Random Vancomycin 13.5 ug/ml 04/26/24 07:09
[2024-04-26] MEDS: CARDIZEM 30 MG TUBE ×4 (08:44→21:54)
[2024-04-26] MEDS: LIORESAL 5 MG TUBE ×3 (08:44→21:54)
[2024-04-26] MEDS: DELTASONE 10 MG TUBE (08:44)
[2024-04-26] MEDS: PROTONIX IV 40 MG IV (08:45)
[2024-04-26] MEDS: NSS (PRESERVATIVE FREE) 10 ML IV (08:45)
[2024-04-26] MEDS: CELEXA 10 MG TUBE (08:45)
[2024-04-26] MEDS: DESENEX/MITRAZOL/ZEASORB 1 APPLIC TOPICAL ×2 (08:45→21:53)
--- NOTE | 2024-04-26 10:37 | W.PN.HOSP.TC ---
Today's Communication/Plan
-
cont ABX
cont tube feeds--if pt doesn't improve to take orals, will need discussion re: PEG or other
Assessment / Plan
Assessment / Plan
Patient is a 68-year-old female who is essentially bedbound due to multiple sclerosis with chronic baclofen, chronic prednisone therapy with suprapubic catheter for neurogenic bladder, previous history of septic shock secondary to obstructive
uropathy back in July to August 2023 presents to the ER with lethargy, flank pain and fever.
Proteus mirabilis bacteremia with Enterococcus UTI causing Severe sepsis due to obstructing renal stones with abscesses vs forniceal rupture noted on CAT scan--patient received normal saline sepsis bolus dosing, IV vancomycin, IV cefepime in
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
drainage but went for aspiration with drain placement due to rising WBC count, improving after drain placement--culture from aspirate with Enterococcus--last positive blood culture was 04/19
TME due to above? vs other---has small bore feeding tube--cont speech evals--still has not passed swallow eval-- head CT, chest CT, & ABG all without any findings for mental status depression....
Acute kidney injury--likely due to obstructive uropathy--follow with IV fluids and relief of obstruction--resolved
paroxysmal afib--s/p cardizem drip--back on oral diltiazem
hypokalemia--replete
Multiple sclerosis--patient on chronic prednisone therapy 10 mg p.o. daily--given severity of illness, s/p stress dose steroids-- now back on home prednisone
Neurogenic bladder--from multiple sclerosis--continue suprapubic tube
Mildly elevated liver function test--likely from fever, infection, medications--trend for now
DVT prophylaxis--NO anticoagulants--SCDs
CODE STATUS-- full code--until definitive answers obtained as to mental status, wants to maintain full code
Anticipated Discharge: > 48 hours
Subjective/Interval History
-
Date of Service: April 26, 2024
pt eyes open/awake--denies c/o
Objective Data
-
Labs:
Laboratory Results
04/26/24
07:09
WBC 13.5 H
Hgb 11.7 L
Hct 37.1
Plt Count 307
Sodium 144
Potassium 3.4 L
Chloride 114 H
Carbon Dioxide 23
BUN 13
Creatinine 0.5 L
Glucose 129 H
Calcium 10.8 H
Total Bilirubin 1.2
AST 87 H
ALT 51 H
Alkaline Phosphatase 219 H
Vital Signs:
max temp for 24 hours
04/26/24
03:08
Temp 98.7 F
Vital Signs
Temp Pulse Resp BP Pulse Ox
98.4 F 97 16 132/79 97
04/26/24 07:49 04/26/24 08:44 04/26/24 07:49 04/26/24 08:44 04/26/24 08:00
I&O
04/25/24 04/26/24 04/27/24
06:59 06:59 06:59
Intake Total 600 / 600 970 / 970
Output Total 810 / 810 810 / 810
Balance -210 / -210 160 / 160
Review of Systems
-
All other systems: Reviewed and negative
Physical Exam
-
General: Well Developed, Well Nourished, Appears Chronically Ill and Morbidly Obese
HEENT: Normocephalic and Atraumatic
Respiratory: Rhonchi (more like wet sounding gurgles upper airway/throat area)
Cardiac: Regular Rhythm and S1/S2; Negative Murmur
GI: Soft, Nontender, Nondistended and Normal Bowel Sounds
Musculoskeletal: No Clubbing and No Cyanosis; Negative No Edema (full body edema)
Skin: Warm
Neuro: Awake
Psych: Calm
[2024-04-26] MEDS: VANCOCIN 150 IV (10:44)
[2024-04-26] MEDS: KCL ELIXIR 40 MEQ TUBE (10:45)
--- NOTE | 2024-04-26 11:47 | W.PN.URO.CBU ---
Today's Communication / Plan
-
Leukocytosis improving
Patient stable
Definitive stone surgery next week should clinical improvement continue
Assessment / Plan
-
urosepsis with huge right side stone burden including right upj and ureteral stone and small left ureteral stones
perinephric fluid collections/possible abscess vs forniceal rupture s/p percutaneous drainage 04/24/24: growing Enterococcus
neurogenic bladder with chronic sp tube and cystitis
s/p bilateral stent placement
Diagnosis
-
Date of Service: April 26, 2024
-
Patient Diagnosis:
urosepsis: Proteus in blood; Proteus and Enterococcus in urine; Enterococcus in right perinephric fluid collection drainage
obstructing stones
perinephric fluid collections/abscess s/p percutaneous drainage 04/24/24
s/p cysto/bilateral ureteral stents/sp tube exchange 04/19
Subjective
-
Offers no c/o pain
Objective
-
Vital Signs
Temp Pulse Resp BP Pulse Ox
98.4 F 97 16 132/79 97
04/26/24 07:49 04/26/24 08:44 04/26/24 07:49 04/26/24 08:44 04/26/24 08:00
Intake and Output
04/25/24 04/26/24 04/27/24
06:59 06:59 06:59
Intake Total 600 / 600 970 / 970
Output Total 810 / 810 810 / 810
Balance -210 / -210 160 / 160
Intake:
Oral fluids 0 / 0
Tube feeding 300 / 300 660 / 660
Feeding tube flush amount 300 / 300 300 / 300
Amount instilled into Drain (
Total)
Right Abdomen Placed in IR
Output:
Drain Output (Total)
Right Abdomen Placed in IR
Urine, Lopez 350 / 350 400 / 400
Suprapubic output 450 / 450 400 / 400
Laboratory Results
04/26/24 07:09
04/26/24 07:09
Review of Systems
-
Constitutional: Fatigue
Physical Exam
-
General - no acute distress
Abdomen - soft, non-tender
--- NOTE | 2024-04-26 11:51 | W.PN.ID1 ---
Date of Service
Date of Service: April 26, 2024
Today's Communication
Follow abscess cx
Continue cefepime, Vancomycin.
Assessment / Plan
# Complicated UTI with right obstructive uropathy and perinephric abscesses vs forniceal rupture. Ucx: Proteus, Enterococcus
# Proteus bacteremia, source
# Leukocytosis improving
# Fever - resolving
# PCN allergy, tolerates cephalosporin
# Neurogenic bladder with SPC
# Multiple sclerosis on chronic low dose prednisone
-04/19 s/p bilateral ureter stents, SPC exchange
- Ucx: Proteus, Enterococcus
- Bcx 2 of 2 sets: Proteus
- Repeat blood cx neg to date
- 04/25 IR drainage of perinephric fluid collection - bloody and purulent. Cx: Enterococcus, Proteus, Staph aureus
-Continue cefepime 1 g IV q6 in case of Amp-C beta-lactamase producing Proteus.
-Continue Vancomycin (d8) for enterococcal coverage (PCN allergy)
- Follow wbc,
#Additional Past Medical History:
Multiple sclerosis chronic prednisone 5mg
Neurogenic bladder with chronic suprapubic catheter
Paroxysmal atrial fibrillation
Nephrolithiasis with history of obstructive uropathy
Class III obesity BMI 39.5
Appendectomy
Tubal ligation
Left groin infected hematoma I+D
Chief Complaint
-: UTI and Bacteremia
Subjective / Review of Systems
remains lethargic
Vital Signs / Physical Exam
Vital Signs
Vital Signs
Temp Pulse Resp BP Pulse Ox
98.4 F 97 16 132/79 97
04/26/24 07:49 04/26/24 08:44 04/26/24 07:49 04/26/24 08:44 04/26/24 08:00
Physical Exam
Constitutional: Acutely Ill
Pulmonary: Clear (anterior chest)
Gastrointestinal: Soft, Non Tender and Non Distended
Objective Data
Lab Data
Lab Results
04/26/24 07:09
04/26/24 07:09
PT 15.9 Sec (11.4-14.6) H 04/19/24 19:56
INR 1.29 04/19/24 19:56
APTT 37.7 Sec (23.4-35.0) H 04/19/24 19:56
Estimated Creat Clear 105 ml/min 04/26/24 07:09
Lactic Acid Cancelled 04/20/24 12:20
Total Bilirubin 1.2 mg/dl (0.2-1.3) 04/26/24 07:09
AST 87 U/L (14-36) H 04/26/24 07:09
ALT 51 U/L (0-35) H 04/26/24 07:09
Alkaline Phosphatase 219 U/L (38-126) H 04/26/24 07:09
Most recent labs reviewed.
Micro Results:
04/24/24 13:58 Wound Culture - Preliminary
Kidney - Right Enterococcus species
Gram Stain - Preliminary
04/19/24 11:23 Blood Culture - Final
Blood/Venous Proteus mirabilis
Gram Stain - Final
04/21/24 05:27 Blood Culture - Final
Blood/Venous No Growth - Final Report
04/23/24 12:55 Blood Culture - Preliminary
Blood/Venous No Growth in 48 hours- Final report to follow
04/23/24 12:26 Blood Culture - Preliminary
Blood/Venous No Growth in 48 hours- Final report to follow
04/19/24 11:57 Urine Culture - Final
Urine Proteus mirabilis
Enterococcus faecalis
04/19/24 11:23 Blood Culture - Final
Blood/Venous Proteus mirabilis
Gram Stain - Final
04/19/24 CT c/a/p wo: 1.0 cm OBSTRUCTING CALCULUS in the RIGHT PROXIMAL URETER. Suspected ACUTE RIGHT PYELONEPHRITIS. MULTIPLE FLUID COLLECTIONS in the RIGHT RETROPERITONEUM inferior to the right kidney (probably retroperitoneal abscesses given the
history of fever and sepsis, although aseptic partially liquefied retroperitoneal hematomas are also possible). Nonobstructing calculi in the left ureteropelvic junction.
04/22/24 CT a/p wo contrast: Interval placement of bilateral double-J ureteral stents, both in appropriate position. No evidence for hydronephrosis/obstructive uropathy. Again seen are multiple right-sided intrarenal calculi. Couple of small calculi
within the midpole of the left kidney. Irregular/multiloculated low-attenuation fluid seen within the inferior right retroperitoneum, similar appearance compared to prior CT. The largest locule within the right lower quadrant measures approximately
4.7 x 1.9 cm in cross-section. Limited evaluation for abscess without intravenous contrast, however no locules of gas identified within these collections or significant enlargement compared to the prior CT.
[2024-04-26 11:52] LABS: Glucose - Point of Care 186 mg/dl (70-99)
[2024-04-26 12:17] VITALS: BP 128/76
[2024-04-26] MEDS: NOVOLOG FLEXPEN-LOW RESISTANCE 1 UNITS SC (12:34)
[2024-04-26 15:02] VITALS: BP 118/69
[2024-04-26] MEDS: TYLENOL 650 MG TUBE (15:20)
[2024-04-26 17:49] LABS: Glucose - Point of Care 145 mg/dl (70-99)
[2024-04-26 19:34] VITALS: BP 135/79
[2024-04-26] MEDS: TRANSDERM-SCOP 1 PATCH TRANSDERM (22:20)
[2024-04-26 23:48] VITALS: BP 148/84
[2024-04-26 23:58] LABS: Glucose - Point of Care 111 mg/dl (70-99)
[2024-04-27] MEDS: MAXIPIME 1000 MG IV ×2 (00:05→05:41)
[2024-04-27] MEDS: STERILE WATER FOR INJECTION 10 ML IV ×2 (00:06→05:41)
[2024-04-27] MEDS: NOVOLOG FLEXPEN-LOW RESISTANCE SC ×2 (00:06→06:28)
[2024-04-27 03:38] VITALS: BP 134/75
[2024-04-27 03:40] VITALS: BMI 41.5
[2024-04-27 06:00] VITALS: BMI 41.5
[2024-04-27 06:05] LABS: Glucose - Point of Care 118 mg/dl (70-99)
[2024-04-27 06:58] LABS: Hemoglobin 10.7 g/dL (12.0-16.0); Mean Corp Hgb Conc. 30.6 g/dL (33.0-37.0); Mean Corpuscular Hgb 29.4 pg (27.0-31.0); Mean Corpuscular Volume 96.2 fL (81.0-99.0); Mean Platelet Volume 10.4 fL (7.4-10.4); Platelet Count 292 10^3/uL (130-400); Red Blood Cell Count 3.64 10^6/uL (4.20-5.40)
[2024-04-27 07:15] LABS: Vancomycin Random 11.8 ug/ml
[2024-04-27 07:20] LABS: Blood Urea Nitrogen 13 mg/dl (7-17); Calcium 10.6 mg/dl (8.4-10.2); Carbon Dioxide 24 mmol/L (22-30); Chloride 113 mmol/L (98-107); Estimated Creatinine Clearance 105 ml/min; Glucose 123 mg/dl (70-99); Magnesium 2.2 mg/dl (1.6-2.3); Potassium 3.4 mmol/L (3.5-5.1); Sodium 143 mmol/L (135-145); eGFR > 60.00
--- NOTE | 2024-04-27 07:42 | W.PN.HOSP.TC ---
Today's Communication/Plan
-
see bold
Assessment / Plan
Assessment / Plan
68-year-old female who is essentially bedbound due to multiple sclerosis with chronic baclofen, chronic prednisone therapy with suprapubic catheter for neurogenic bladder, previous history of septic shock secondary to obstructive uropathy in July
to August 2023 presented to the ER with lethargy, flank pain and fever.
Gen: NAD, NCAT, appears chronically ill
Eyes: no scleral icterus.
Neck: supple.
CV: RRR, +S1/S2, no m/r/g.
Resp: CTAB, no rales, wheezes, or rhonchi.
Abd: +BS, soft, NT, ND
Skin: No rashes. ecchymoses on arms, boots on feet
Neuro: lethargic, opens eyes to sternal rub
04/24/24 13:58 Kidney - Right Wound Culture - Preliminary
Enterococcus faecalis
Proteus species
Staphylococcus aureus
04/24/24 13:58 Kidney - Right Gram Stain - Preliminary
04/23/24 12:55 Blood/Venous Blood Culture - Preliminary
No Growth in 72 hours- Final report to follow
04/23/24 12:26 Blood/Venous Blood Culture - Preliminary
No Growth in 72 hours- Final report to follow
04/19/24 11:23 Blood/Venous Blood Culture - Final
Proteus mirabilis
04/19/24 11:23 Blood/Venous Gram Stain - Final
04/21/24 05:27 Blood/Venous Blood Culture - Final
No Growth - Final Report
04/19/24 11:57 Urine Urine Culture - Final
Proteus mirabilis
Enterococcus faecalis
04/19/24 11:23 Blood/Venous Blood Culture - Final
Proteus mirabilis
04/19/24 11:23 Blood/Venous Gram Stain - Final
CT C/A/P 04/19/24:
CHEST:
1. Moderate right lower lobe and mild left lower lobe basilar subpleural airspace consolidations (probably atelectasis and less likely pneumonia).
2. Mild bilateral posterior pleural thickening.
3. Mild cardiomegaly.
4. Osteoporosis.
ABDOMEN and PELVIS:
1. 1.0 cm OBSTRUCTING CALCULUS in the RIGHT PROXIMAL URETER.
2. INNUMERABLE RIGHT INTRARENAL CALCULI.
3. Suspected ACUTE RIGHT PYELONEPHRITIS.
4. MULTIPLE FLUID COLLECTIONS in the RIGHT RETROPERITONEUM inferior to the right kidney (probably retroperitoneal abscesses given the history of fever and sepsis, although aseptic partially liquefied retroperitoneal hematomas are also possible).
5. Nonobstructing calculi in the left ureteropelvic junction.
6. Very severe diffuse hepatic steatosis and severe hepatomegaly.
7. Cholelithiasis.
8. Mild colonic diverticulosis.
9. Suprapubic urinary bladder catheter in place.
10. 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
11. Severe diffuse muscle atrophy.
12. SEVERE OSTEOPOROSIS with chronic vertebral body endplate insufficiency fractures in the lumbar spine.
CT A/P 04/22/24:
1. Interval placement of bilateral double-J ureteral stents, both in appropriate position. No evidence for hydronephrosis/obstructive uropathy. Again seen are multiple right-sided intrarenal calculi. Couple of small calculi within the midpole of the
left kidney.
2. Irregular/multiloculated low-attenuation fluid seen within the inferior right retroperitoneum, similar appearance compared to prior CT. The largest locule within the right lower quadrant measures approximately 4.7 x 1.9 cm in cross-section.
Limited evaluation for abscess without intravenous contrast, however no locules of gas identified within these collections or significant enlargement compared to the prior CT.
3. Trace right pleural effusion with adjacent consolidation/atelectasis within the right lower lobe. Pneumonia not excluded. Small amount of consolidation also noted within the medial left lower lobe.
CT brain 04/24/24: No acute intracranial abnormality identified.
CT chest:
1. Low lung volumes. Small amount of consolidation at the posterior right lung base with small air bronchograms. This could be related to atelectasis or pneumonia. There is a very small right pleural effusion. There is subsegmental atelectatic
change at the left lung base.
2. Severe hepatic fatty infiltration.
Severe sepsis due to Proteus mirabilis UTI/bacteremia and Enterococcus faecalis UTI due to obstructing R ureterolithiasis, causing acute R pyelonephritis, and R retroperitoneal abscesses vs forniceal rupture:
-received IVF bolus on admission
-s/p cysto/left ureteral stent/right retrograde and right ureteral stent/SBT exchange on 04/19/24
-s/p CT guided aspiration of RLQ/inferior right perinephric fluid collection yielding bloody/purulent fluid followed by drain placement with 10cc fluid removed on 04/24/24
-was initially on Vanco/Cefepime, then Vanco/Rocephin, no on IV Vanco/Cefepime as per ID
-was on stress dose steroids, now off
-lactic acidosis has resolved
-Pertinent imaging and culture data above
-for definitive stone surgery this week as per urology
-TESSA due to sepsis and obstructive uropathy is now resolved
Acute metabolic encephalopathy:
-possibly due to sepsis but also concerned hypercalcemia is playing a role
Paroxysmal atrial fibrillation:
-was on a Cardizem drip, now transitioned to PO Cardizem
-was seen by cardiology
Hypercalcemia:
-corrected Ca 11.7. Check PTH, Vit D, Phos. Start aggressive IVFs.
Other problems:
Hypokalemia: K via tube, check Mg
Multiple sclerosis: chronic and severe, with neurogenic bladder and SPT
Mildly elevated LFTs: likely from fever/infection/medications
Morbid obesity due to excess calories
Overall extremely poor prognosis.
FULL/Lovenox
Anticipated Discharge: > 48 hours
Subjective/Interval History
-
Date of Service: April 27, 2024
Objective Data
-
Labs:
Laboratory Results
04/27/24
05:59
WBC 14.0 H
Hgb 10.7 L
Hct 35.0 L
Plt Count 292
Sodium 143
Potassium 3.4 L
Chloride 113 H
Carbon Dioxide 24
BUN 13
Creatinine 0.5 L
Glucose 123 H
Calcium 10.6 H
Vital Signs:
Vital Signs
Temp Pulse Resp BP Pulse Ox
99.0 F 102 12 134/75 93
04/27/24 03:38 04/27/24 03:38 04/27/24 03:38 04/27/24 03:38 04/27/24 04:34
I&O
04/26/24 04/27/24 04/28/24
06:59 06:59 06:59
Intake Total 970 / 970
Output Total 810 / 810 810 / 810
Balance 160 / 160 -800 / -800
[2024-04-27 07:50] VITALS: BP 128/75
--- NOTE | 2024-04-27 07:58 | PHA.VAN.FU ---
Vancomycin Assessment / Plan
- Assessment
Renal Function: Stable
WBC's are: Stable
In the past 24 hrs, patient has been: Afebrile
Concomitant Antimicrobials: cefepime
- Assessment - Therapeutic Drug Monitoring
Random Level: 11.8 - drawn ~19H after previous dose of 750mg
- Dosing Plan
Dosing by Level: Re-dose today (Vanc 1000mg)
Patient may be starting to have increased clearance - level decreased with shorter interval between prior dose & level, possible increase in UOP
Trial of slightly higher dosing today - follow trend
- Monitoring Plan
Random Level: 04/28 06
- Follow Up
Pharmacy will continue to follow.
Vancomycin Follow UP
- -
Patient Age: 68
Patient Sex: Female
Vancomycin Day #: 9 (first dose 04/19)
Indication: Genito-Urinary Tract
Requesting Provider: Dr. Brown
Pertinent Antimicrobial Allergies:
moxifloxacin - swelling; tolerates ciprofloxacin
penicillins - unknown, > 30 y/a, tolerated cefazolin
Height / Weight:
Height 5 ft 3 in
Actual Weight 106.367 kg
Pertinent Past Medical History: BMI ~40, MS
- Vital Signs / Lab Results
Temp Pulse Resp BP Pulse Ox
99.0 F 102 12 134/75 93
04/27/24 03:38 04/27/24 03:38 04/27/24 03:38 04/27/24 03:38 04/27/24 04:34
Lab Results - Hematology
04/25/24 04/26/24 04/27/24
06:00 07:09 05:59
WBC 14.8 H 13.5 H 14.0 H
Lab Results - Chemistry
04/25/24 04/26/24 04/27/24
06:00 07:09 05:59
BUN 12 13 13
Creatinine 0.6 0.5 L 0.5 L
Estimated Creat Clear 106 105 105
Albumin 2.3 L 2.6 L
Microbiology Results
04/24/24 13:58 Wound Culture - Preliminary
Kidney - Right Enterococcus faecalis
Proteus species
Staphylococcus aureus
Gram Stain - Preliminary
04/23/24 12:55 Blood Culture - Preliminary
Blood/Venous No Growth in 72 hours- Final report to follow
04/23/24 12:26 Blood Culture - Preliminary
Blood/Venous No Growth in 72 hours- Final report to follow
04/19/24 11:23 Blood Culture - Final
Blood/Venous Proteus mirabilis
Gram Stain - Final
04/21/24 05:27 Blood Culture - Final
Blood/Venous No Growth - Final Report
Therapeutic Drug Monitoring
Random Vancomycin 11.8 ug/ml 04/27/24 05:59
[2024-04-27] MEDS: KCL ELIXIR 40 MEQ TUBE (08:54)
[2024-04-27] MEDS: NSS (PRESERVATIVE FREE) 10 ML IV (08:54)
[2024-04-27] MEDS: PROTONIX IV 40 MG IV (08:54)
[2024-04-27] MEDS: LIORESAL 5 MG TUBE ×3 (08:55→22:39)
[2024-04-27] MEDS: CELEXA 10 MG TUBE (08:55)
[2024-04-27] MEDS: DELTASONE 10 MG TUBE (08:55)
[2024-04-27] MEDS: CARDIZEM 30 MG TUBE ×4 (08:55→22:39)
[2024-04-27] MEDS: DESENEX/MITRAZOL/ZEASORB 1 APPLIC TOPICAL ×2 (08:55→21:29)
[2024-04-27 09:30] LABS: Phosphorus 1.8 mg/dl (2.5-4.5)
[2024-04-27] MEDS: VANCOCIN 200 IV (10:43)
[2024-04-27] MEDS: NSS 1000 IV ×2 (10:44→21:29)
[2024-04-27] MEDS: ANCEF 10 IV ×2 (10:44→17:11)
--- NOTE | 2024-04-27 11:09 | W.PN.ID1 ---
Date of Service
Date of Service: April 27, 2024
Today's Communication
See below.
Assessment / Plan
# Complicated UTI with right obstructive uropathy: 04/19 s/p bilateral ureter stents, SPC exchange
# perinephric abscesses: 04/25 IR drainage of perinephric fluid collection - bloody and purulent. Cx: Enterococcus, Proteus, MSSA
# Proteus bacteremia, source
# Leukocytosis improving
- Repeat blood cx neg to date
- Narrow cefepime to cefazolin 2gIVq6 (for Proteus, MSSA)
-Continue Vancomycin (d9) for enterococcal coverage (PCN allergy)
-Definitive stone surgery s week
# Neurogenic bladder with SPC
# Multiple sclerosis on chronic low dose prednisone
#Additional Past Medical History:
Multiple sclerosis chronic prednisone 5mg
Neurogenic bladder with chronic suprapubic catheter
Paroxysmal atrial fibrillation
Nephrolithiasis with history of obstructive uropathy
Class III obesity BMI 39.5
Appendectomy
Tubal ligation
Left groin infected hematoma I+D
Chief Complaint
-: UTI and Bacteremia
Vital Signs / Physical Exam
Vital Signs
Vital Signs
Temp Pulse Resp BP Pulse Ox
98.5 F 102 18 128/75 99
04/27/24 07:50 04/27/24 08:55 04/27/24 07:50 04/27/24 08:55 04/27/24 07:50
Physical Exam
Constitutional: Acutely Ill
Cardiovascular: Regular Rate and S1/S2
Gastrointestinal: Soft, Non Tender and Non Distended
Genito-Urinary: Clear Urine (dark)
Neurological: Other (drowsy)
Objective Data
Lab Data
Lab Results
04/27/24 05:59
04/27/24 05:59
PT 15.9 Sec (11.4-14.6) H 04/19/24 19:56
INR 1.29 04/19/24 19:56
APTT 37.7 Sec (23.4-35.0) H 04/19/24 19:56
Estimated Creat Clear 105 ml/min 04/27/24 05:59
Lactic Acid Cancelled 04/20/24 12:20
Total Bilirubin 1.2 mg/dl (0.2-1.3) 04/26/24 07:09
AST 87 U/L (14-36) H 04/26/24 07:09
ALT 51 U/L (0-35) H 04/26/24 07:09
Alkaline Phosphatase 219 U/L (38-126) H 04/26/24 07:09
Most recent labs reviewed.
Micro Results:
04/24/24 13:58 Wound Culture - Final
Kidney - Right Enterococcus faecalis
Proteus mirabilis
S aureus-Methicillin Sensitive
Gram Stain - Final
04/23/24 12:55 Blood Culture - Preliminary
Blood/Venous No Growth in 72 hours- Final report to follow
04/23/24 12:26 Blood Culture - Preliminary
Blood/Venous No Growth in 72 hours- Final report to follow
04/19/24 11:23 Blood Culture - Final
Blood/Venous Proteus mirabilis
Gram Stain - Final
04/21/24 05:27 Blood Culture - Final
Blood/Venous No Growth - Final Report
04/19/24 11:57 Urine Culture - Final
Urine Proteus mirabilis
Enterococcus faecalis
04/19/24 11:23 Blood Culture - Final
Blood/Venous Proteus mirabilis
Gram Stain - Final
04/19/24 CT c/a/p wo: 1.0 cm OBSTRUCTING CALCULUS in the RIGHT PROXIMAL URETER. Suspected ACUTE RIGHT PYELONEPHRITIS. MULTIPLE FLUID COLLECTIONS in the RIGHT RETROPERITONEUM inferior to the right kidney (probably retroperitoneal abscesses given the
history of fever and sepsis, although aseptic partially liquefied retroperitoneal hematomas are also possible). Nonobstructing calculi in the left ureteropelvic junction.
04/22/24 CT a/p wo contrast: Interval placement of bilateral double-J ureteral stents, both in appropriate position. No evidence for hydronephrosis/obstructive uropathy. Again seen are multiple right-sided intrarenal calculi. Couple of small calculi
within the midpole of the left kidney. Irregular/multiloculated low-attenuation fluid seen within the inferior right retroperitoneum, similar appearance compared to prior CT. The largest locule within the right lower quadrant measures approximately
4.7 x 1.9 cm in cross-section. Limited evaluation for abscess without intravenous contrast, however no locules of gas identified within these collections or significant enlargement compared to the prior CT.
[2024-04-27 12:28] VITALS: BP 127/75
[2024-04-27 13:34] LABS: Glucose - Point of Care 154 mg/dl (70-99)
[2024-04-27] MEDS: NOVOLOG FLEXPEN-LOW RESISTANCE 1 UNITS SC ×2 (14:41→17:53)
[2024-04-27 15:25] VITALS: BP 135/83
--- NOTE | 2024-04-27 16:09 | PTOTSP ---
ST Follow-Up
Pt continues to present moderately-severe oropharyngeal dysphagia in the setting of acute metabolic encephalopathy and chronic MS.
Recommendations:
- STRICT NPO; no oral meds; no ARHP.
- TF via dobhoff.
- Aspiration precautions: HOB upright as often as possible; oral care QID with suctioning PRN; turn off TF when providing perineal care.
- GRAVEDIGGER will continue to follow while in house to re-assess appropriateness/candidacy for resuming PO intake.
[2024-04-27] MEDS: LOVENOX 40 MG SC (17:12)
[2024-04-27 17:42] LABS: Glucose - Point of Care 152 mg/dl (70-99)
[2024-04-27 19:40] VITALS: BP 132/73
[2024-04-27 23:11] VITALS: BP 130/96
[2024-04-28] VITALS (7 sets, daily range): BP systolic 115–140; BP diastolic 66–75; PULSE 112; O2SAT 92; BMI 42.6
[2024-04-28 00:45] LABS: Glucose - Point of Care 114 mg/dl (70-99)
[2024-04-28] MEDS: NOVOLOG FLEXPEN-LOW RESISTANCE SC ×3 (01:06→18:22)
[2024-04-28] MEDS: ANCEF 10 IV ×3 (03:05→17:20)
[2024-04-28] MEDS: NSS 1000 IV ×2 (06:03→09:40)
[2024-04-28 06:08] LABS: Glucose - Point of Care 125 mg/dl (70-99)
[2024-04-28 07:35] LABS: Vancomycin Random 12.7 ug/ml
--- NOTE | 2024-04-28 07:56 | W.PN.HOSP.TC ---
Today's Communication/Plan
-
see bold
Assessment / Plan
Assessment / Plan
68-year-old female who is essentially bedbound due to multiple sclerosis with chronic baclofen, chronic prednisone therapy with suprapubic catheter for neurogenic bladder, previous history of septic shock secondary to obstructive uropathy in July
to August 2023 presented to the ER with lethargy, flank pain and fever.
Gen: NAD, NCAT, appears chronically ill
Eyes: EOMI, no scleral icterus.
Neck: supple.
CV: remains RRR, +S1/S2, no m/r/g.
Resp: CTAB, no rales, wheezes, or rhonchi.
Abd: +BS, soft, NT, ND
Skin: No rashes. ecchymoses on arms, boots on feet
Neuro: CN 2-12 intact
04/23/24 12:55 Blood/Venous Blood Culture - Preliminary
No Growth in 4 days- Final report to follow
04/23/24 12:26 Blood/Venous Blood Culture - Preliminary
No Growth in 4 days- Final report to follow
04/24/24 13:58 Kidney - Right Wound Culture - Final
Enterococcus faecalis
Proteus mirabilis
S aureus-Methicillin Sensitive
04/24/24 13:58 Kidney - Right Gram Stain - Final
04/19/24 11:23 Blood/Venous Blood Culture - Final
Proteus mirabilis
04/19/24 11:23 Blood/Venous Gram Stain - Final
04/21/24 05:27 Blood/Venous Blood Culture - Final
No Growth - Final Report
04/19/24 11:57 Urine Urine Culture - Final
Proteus mirabilis
Enterococcus faecalis
04/19/24 11:23 Blood/Venous Blood Culture - Final
Proteus mirabilis
04/19/24 11:23 Blood/Venous Gram Stain - Final
CT C/A/P 04/19/24:
CHEST:
1. Moderate right lower lobe and mild left lower lobe basilar subpleural airspace consolidations (probably atelectasis and less likely pneumonia).
2. Mild bilateral posterior pleural thickening.
3. Mild cardiomegaly.
4. Osteoporosis.
ABDOMEN and PELVIS:
1. 1.0 cm OBSTRUCTING CALCULUS in the RIGHT PROXIMAL URETER.
2. INNUMERABLE RIGHT INTRARENAL CALCULI.
3. Suspected ACUTE RIGHT PYELONEPHRITIS.
4. MULTIPLE FLUID COLLECTIONS in the RIGHT RETROPERITONEUM inferior to the right kidney (probably retroperitoneal abscesses given the history of fever and sepsis, although aseptic partially liquefied retroperitoneal hematomas are also possible).
5. Nonobstructing calculi in the left ureteropelvic junction.
6. Very severe diffuse hepatic steatosis and severe hepatomegaly.
7. Cholelithiasis.
8. Mild colonic diverticulosis.
9. Suprapubic urinary bladder catheter in place.
10. 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
11. Severe diffuse muscle atrophy.
12. SEVERE OSTEOPOROSIS with chronic vertebral body endplate insufficiency fractures in the lumbar spine.
CT A/P 04/22/24:
1. Interval placement of bilateral double-J ureteral stents, both in appropriate position. No evidence for hydronephrosis/obstructive uropathy. Again seen are multiple right-sided intrarenal calculi. Couple of small calculi within the midpole of the
left kidney.
2. Irregular/multiloculated low-attenuation fluid seen within the inferior right retroperitoneum, similar appearance compared to prior CT. The largest locule within the right lower quadrant measures approximately 4.7 x 1.9 cm in cross-section.
Limited evaluation for abscess without intravenous contrast, however no locules of gas identified within these collections or significant enlargement compared to the prior CT.
3. Trace right pleural effusion with adjacent consolidation/atelectasis within the right lower lobe. Pneumonia not excluded. Small amount of consolidation also noted within the medial left lower lobe.
CT brain 04/24/24: No acute intracranial abnormality identified.
CT chest:
1. Low lung volumes. Small amount of consolidation at the posterior right lung base with small air bronchograms. This could be related to atelectasis or pneumonia. There is a very small right pleural effusion. There is subsegmental atelectatic
change at the left lung base.
2. Severe hepatic fatty infiltration.
Severe sepsis due to Proteus mirabilis UTI/bacteremia and Enterococcus faecalis UTI due to obstructing R ureterolithiasis, causing acute R pyelonephritis, and R retroperitoneal abscesses vs forniceal rupture:
-received IVF bolus on admission
-s/p cysto/left ureteral stent/right retrograde and right ureteral stent/SBT exchange on 04/19/24
-s/p CT guided aspiration of RLQ/inferior right perinephric fluid collection yielding bloody/purulent fluid followed by drain placement with 10cc fluid removed on 04/24/24
-was initially on Vanco/Cefepime, then Vanco/Rocephin, no on IV Vanco/Cefepime as per ID
-was on stress dose steroids, now off
-lactic acidosis has resolved
-Pertinent imaging and culture data above
-for definitive stone surgery this week as per urology
-TESSA due to sepsis and obstructive uropathy is now resolved
Acute metabolic encephalopathy:
-possibly due to sepsis but also concerned hypercalcemia is playing a role
Paroxysmal atrial fibrillation:
-was on a Cardizem drip, now transitioned to PO Cardizem
-was seen by cardiology
Hypercalcemia:
-corrected Ca 11.7
-Phos low 1.8
-PTH and Vit D pending
-cont aggressive IVFs
Other problems:
Hypokalemia: K via tube, Mg 2.2
Multiple sclerosis: chronic and severe, with neurogenic bladder and SPT
Mildly elevated LFTs: likely from fever/infection/medications
Morbid obesity due to excess calories
Overall extremely poor prognosis.
FULL/Lovenox
Anticipated Discharge: 24 - 48 hours
Subjective/Interval History
-
Date of Service: April 28, 2024
Pt does not offer acute complaints.
Objective Data
-
Vital Signs:
Vital Signs
Temp Pulse Resp BP Pulse Ox
99.2 F 104 16 119/75 95
04/28/24 03:12 04/28/24 03:12 04/28/24 03:12 04/28/24 03:12 04/28/24 03:12
I&O
04/27/24 04/28/24 04/29/24
06:59 06:59 06:59
Intake Total 3675 / 3675
Output Total 810 / 810 1217 / 1217
Balance -800 / -800 2458 / 2458
--- NOTE | 2024-04-28 08:13 | PHA.VAN.FU ---
Vancomycin Assessment / Plan
- Assessment
Renal Function: Stable
WBC's are: Stable
In the past 24 hrs, patient has been: Afebrile
Concomitant Antimicrobials: cefazolin
- Assessment - Therapeutic Drug Monitoring
Random Level: 12.7 - drawn ~20H after previous dose of 1000mg
- Dosing Plan
Dosing by Level: Re-dose today (Vanc 1000mg)
- Monitoring Plan
Random Level: 04/29 0600 - if level remains stable, will consider scheduling dose
Current est CrCl is not predictive of vancomycin clearance
Follow post stone surgery this week as clearance may improve further
- Follow Up
Pharmacy will continue to follow.
Vancomycin Follow UP
- -
Patient Age: 68
Patient Sex: Female
Vancomycin Day #: 10 (first dose 04/19)
Indication: Genito-Urinary Tract
Requesting Provider: Dr. Brown
Pertinent Antimicrobial Allergies:
moxifloxacin - swelling; tolerates ciprofloxacin
penicillins - unknown, > 30 y/a, tolerated cefazolin
Height / Weight:
Height 5 ft 3 in
Actual Weight 109.18 kg
Pertinent Past Medical History: BMI ~40, MS
- Vital Signs / Lab Results
Temp Pulse Resp BP Pulse Ox
99.2 F 104 16 119/75 95
04/28/24 03:12 04/28/24 03:12 04/28/24 03:12 04/28/24 03:12 04/28/24 03:12
Lab Results - Hematology
04/26/24 04/27/24
07:09 05:59
WBC 13.5 H 14.0 H
Lab Results - Chemistry
04/26/24 04/27/24
07:09 05:59
BUN 13 13
Creatinine 0.5 L 0.5 L
Estimated Creat Clear 105 105
Albumin 2.6 L
Microbiology Results
04/23/24 12:55 Blood Culture - Preliminary
Blood/Venous No Growth in 4 days- Final report to follow
04/23/24 12:26 Blood Culture - Preliminary
Blood/Venous No Growth in 4 days- Final report to follow
04/24/24 13:58 Wound Culture - Final
Kidney - Right Enterococcus faecalis
Proteus mirabilis
S aureus-Methicillin Sensitive
Gram Stain - Final
04/19/24 11:23 Blood Culture - Final
Blood/Venous Proteus mirabilis
Gram Stain - Final
04/21/24 05:27 Blood Culture - Final
Blood/Venous No Growth - Final Report
Therapeutic Drug Monitoring
Random Vancomycin 12.7 ug/ml 04/28/24 06:51
[2024-04-28 08:42] LABS: Glucose - Point of Care 124 mg/dl (70-99)
[2024-04-28 09:12] LABS: Hematocrit 32.6 % (37.0-47.0); Hemoglobin 10.1 g/dL (12.0-16.0); Mean Corpuscular Hgb 29.9 pg (27.0-31.0); Mean Corpuscular Volume 96.4 fL (81.0-99.0); Mean Platelet Volume 10.5 fL (7.4-10.4); Platelet Count 297 10^3/uL (130-400); Red Blood Cell Count 3.38 10^6/uL (4.20-5.40); Red Cell Dist. Width 16.3 % (11.5-14.5)
[2024-04-28 09:38] LABS: Blood Urea Nitrogen 12 mg/dl (7-17); Calcium 9.9 mg/dl (8.4-10.2); Carbon Dioxide 25 mmol/L (22-30); Chloride 114 mmol/L (98-107); Estimated Creatinine Clearance 106 ml/min; Glucose 127 mg/dl (70-99); Potassium 3.7 mmol/L (3.5-5.1); Sodium 143 mmol/L (135-145); eGFR > 60.00
[2024-04-28] MEDS: DELTASONE 10 MG TUBE (09:39)
[2024-04-28] MEDS: CELEXA 10 MG TUBE (09:39)
[2024-04-28] MEDS: CARDIZEM 30 MG TUBE ×4 (09:39→21:48)
[2024-04-28] MEDS: PROTONIX IV 40 MG IV (09:39)
[2024-04-28] MEDS: NSS (PRESERVATIVE FREE) 10 ML IV (09:39)
[2024-04-28] MEDS: LIORESAL 5 MG TUBE ×3 (09:39→21:48)
[2024-04-28] MEDS: DESENEX/MITRAZOL/ZEASORB 1 APPLIC TOPICAL ×2 (09:41→21:47)
--- NOTE | 2024-04-28 10:21 | W.PN.ID1 ---
Date of Service
Date of Service: April 28, 2024
Today's Communication
Continue Vanco/cefazolin.
Assessment / Plan
# Complicated UTI with right obstructive uropathy: 04/19 s/p bilateral ureter stents, SPC exchange
# perinephric abscesses: 04/25 IR drainage of perinephric fluid collection - bloody and purulent. Cx: Enterococcus, Proteus, MSSA
# Proteus bacteremia, source
# Leukocytosis - trending up again
- Repeat blood cx neg to date
- Continue cefazolin [id number] (for Proteus, MSSA)
-Continue Vancomycin (d10) for enterococcal coverage (PCN allergy)
-Definitive stone surgery this week pending clinical status
- Follow wbc.
# Neurogenic bladder with SPC - exchanged 04/19/24
# Multiple sclerosis on chronic low dose prednisone
#Additional Past Medical History:
Multiple sclerosis chronic prednisone 5mg
Neurogenic bladder with chronic suprapubic catheter
Paroxysmal atrial fibrillation
Nephrolithiasis with history of obstructive uropathy
Class III obesity BMI 39.5
Appendectomy
Tubal ligation
Left groin infected hematoma I+D
Chief Complaint
-: UTI and Bacteremia
Subjective / Review of Systems
Wakes up to voice. Feels weak.
Vital Signs / Physical Exam
Vital Signs
Vital Signs
Temp Pulse Resp BP Pulse Ox
99.0 F 115 18 123/70 94
04/28/24 07:50 04/28/24 09:39 04/28/24 07:50 04/28/24 09:39 04/28/24 07:50
Physical Exam
Constitutional: Acutely Ill
Gastrointestinal: Soft, Non Tender and Non Distended
Genito-Urinary: Clear Urine
Neurological: Other (Drowsy)
Objective Data
Lab Data
Lab Results
04/28/24 08:50
04/28/24 08:50
PT 15.9 Sec (11.4-14.6) H 04/19/24 19:56
INR 1.29 04/19/24 19:56
APTT 37.7 Sec (23.4-35.0) H 04/19/24 19:56
Estimated Creat Clear 106 ml/min 04/28/24 08:50
Lactic Acid Cancelled 04/20/24 12:20
Total Bilirubin 1.2 mg/dl (0.2-1.3) 04/26/24 07:09
AST 87 U/L (14-36) H 04/26/24 07:09
ALT 51 U/L (0-35) H 04/26/24 07:09
Alkaline Phosphatase 219 U/L (38-126) H 04/26/24 07:09
Most recent labs reviewed.
Micro Results:
04/23/24 12:55 Blood Culture - Preliminary
Blood/Venous No Growth in 4 days- Final report to follow
04/23/24 12:26 Blood Culture - Preliminary
Blood/Venous No Growth in 4 days- Final report to follow
04/24/24 13:58 Wound Culture - Final
Kidney - Right Enterococcus faecalis
Proteus mirabilis
S aureus-Methicillin Sensitive
Gram Stain - Final
04/19/24 11:23 Blood Culture - Final
Blood/Venous Proteus mirabilis
Gram Stain - Final
04/21/24 05:27 Blood Culture - Final
Blood/Venous No Growth - Final Report
04/19/24 11:57 Urine Culture - Final
Urine Proteus mirabilis
Enterococcus faecalis
04/19/24 11:23 Blood Culture - Final
Blood/Venous Proteus mirabilis
Gram Stain - Final
04/19/24 CT c/a/p wo: 1.0 cm OBSTRUCTING CALCULUS in the RIGHT PROXIMAL URETER. Suspected ACUTE RIGHT PYELONEPHRITIS. MULTIPLE FLUID COLLECTIONS in the RIGHT RETROPERITONEUM inferior to the right kidney (probably retroperitoneal abscesses given the
history of fever and sepsis, although aseptic partially liquefied retroperitoneal hematomas are also possible). Nonobstructing calculi in the left ureteropelvic junction.
04/22/24 CT a/p wo contrast: Interval placement of bilateral double-J ureteral stents, both in appropriate position. No evidence for hydronephrosis/obstructive uropathy. Again seen are multiple right-sided intrarenal calculi. Couple of small calculi
within the midpole of the left kidney. Irregular/multiloculated low-attenuation fluid seen within the inferior right retroperitoneum, similar appearance compared to prior CT. The largest locule within the right lower quadrant measures approximately
4.7 x 1.9 cm in cross-section. Limited evaluation for abscess without intravenous contrast, however no locules of gas identified within these collections or significant enlargement compared to the prior CT.
[2024-04-28] MEDS: VANCOCIN 200 IV (11:47)
--- NOTE | 2024-04-28 11:56 | PTOTSP ---
ST Follow-Up
ACCOUNTS OFFICER spoke with pt's re: potential need for discussion about GOC. Pt's reported that pt was admitted last year for a significant illness at which time she was intubated and required a PEG tube. Pt was reportedly unhappy with it at the
time. After pt recovered, they had a conversation, and pt communicated she would not want that level of intervention again. Pt's communicated that he currently wants more answers re: addressing pt's acute illnesses before having the
discussion about goals of care. ACCOUNTS OFFICER advised pt's that at this point, pt could never safely consume the nutrition/hydration she needs by mouth and that pt can only have dobhoff/NG tubes present for a limited amount of time before the tissue
in her nasopharynx becomes compromised, thus warranting a PEG tube. ACCOUNTS OFFICER also informed pt's about concern for pt's airway protection from secretions. Pt's was receptive to all education provided.
Pt continues to present with severe to profound oropharyngeal dysphagia in the setting of acute metabolic encephalopathy and underlying multiple sclerosis.
Recommendations:
- STRICT NPO, including medications.
- TF & meds via NG tube.
- Aspiration precautions: HOB upright as often as possible; oral care QID with suctioning PRN; turn off TF when lying pt laterally for perineal care.
- Recommending CXR to ensure pt is not developing a PNA from her unmanaged secretions.
- Recommending a drying agent for secretion management (e.g. antihistamine, scopolamine).
- Recommending ongoing GOC conversation given duration of NG tube and minimal improvement in overall physical presentation.
- ACCOUNTS OFFICER will continue to follow closely.
[2024-04-28 12:12] LABS: Glucose - Point of Care 153 mg/dl (70-99)
[2024-04-28] MEDS: NOVOLOG FLEXPEN-LOW RESISTANCE 1 UNITS SC (12:43)
--- NOTE | 2024-04-28 14:15 | W.PN.UPDATE ---
Update Note
Progress Note Update
Patient's updated at length over the phone. I explained that due to the patient's overwhelming burden of pathology, most notably her advanced MS, morbid obesity, acute sepsis due to Proteus bacteremia and Enterococcus faecalis UTI due to
obstructing right ureterolithiasis with right retroperitoneal abscess status post stent ureteral placements status post CT-guided aspiration of right lower quadrant/inferior right perinephric fluid collection that her prognosis is extremely poor. I
explained that I do not believe that she will have a favorable outcome. I also explained that the patient is not able to take in adequate oral intake on her own and that we would need to consider PEG tube placement. I did ask if the patient's CODE
STATUS could be changed to DNR. The patient's reported that he needed some time to consider her CODE STATUS and PEG tube.
--- NOTE | 2024-04-28 15:13 | PTCARENOTE ---
Patients requesting comfort care.Dr. Jones notified.
--- NOTE | 2024-04-28 15:43 | CM ---
CM consulted for hospice
Bedside meeting with spouse who is considering GOC
In agreement with referral to Hospice with likely plan of home, not interested in SNF
Referral sent to Hospice and pending
Discharge Disposition- anticipate home with Hospice
--- NOTE | 2024-04-28 15:45 | HOSPNOTE ---
Referral will be sent, I will call the spouse tomorrow to discuss hospice and the philosophy. More information to follow.
[2024-04-28] MEDS: LOVENOX 40 MG SC (17:20)
[2024-04-28 18:12] LABS: Glucose - Point of Care 96 mg/dl (70-99)
[2024-04-28] MEDS: TYLENOL 650 MG TUBE (21:48)
[2024-04-28 23:45] LABS: Hematocrit 31.1 % (37.0-47.0); Hemoglobin 10.1 g/dL (12.0-16.0)
[2024-04-29] MEDS: NOVOLOG FLEXPEN-LOW RESISTANCE SC ×2 (00:13→05:52)
[2024-04-29 00:15] LABS: Glucose - Point of Care 103 mg/dl (70-99)
[2024-04-29] MEDS: ANCEF 10 IV (01:43)
--- NOTE | 2024-04-29 02:05 | W.PN.UPDATE ---
Update Note
Progress Note Update
RN notified REPAIR ORDER CLERK, bright red blood draining from suprapubic catheter, stable VS, asymptomatic. stat H/H .01/01.1, RN made Urologist aware.
--- NOTE | 2024-04-29 03:04 | PTCARENOTE ---
Patient's suprapubic catheter noted to be draining bright red blood. Patient offering no complaints at that time, but noted to be very drowsy/lethargic and minimally verbal. VSS as documented - now with low grade temp of 99.6. STRUCTURAL STEEL EQUIPMENT ERECTOR notified of
findings. STRUCTURAL STEEL EQUIPMENT ERECTOR instructed this RN to reach out to urologist driver's education instructor. Stat H&H ordered by STRUCTURAL STEEL EQUIPMENT ERECTOR and drawn. Dr. Alvarado notified. Dr. Alvarado instructed this RN to flush suprapubic tube with full syringe if clots noted in urine. STRUCTURAL STEEL EQUIPMENT ERECTOR notified of urologist
recommendation.
[2024-04-29 03:33] VITALS: BP 127/70
[2024-04-29 05:43] VITALS: BMI 42.9
[2024-04-29 05:48] LABS: Glucose - Point of Care 110 mg/dl (70-99)
[2024-04-29 07:40] VITALS: BP 137/76
[2024-04-29 07:48] LABS: Hematocrit 31.7 % (37.0-47.0); Hemoglobin 10.1 g/dL (12.0-16.0); Mean Corp Hgb Conc. 31.9 g/dL (33.0-37.0); Mean Corpuscular Volume 94.1 fL (81.0-99.0); Mean Platelet Volume 10.6 fL (7.4-10.4); Platelet Count 335 10^3/uL (130-400); Red Blood Cell Count 3.37 10^6/uL (4.20-5.40); Red Cell Dist. Width 16.5 % (11.5-14.5); White Blood Cell Count 16.8 10^3/uL (4.8-10.8)
--- NOTE | 2024-04-29 08:27 | W.PN.HOSP.TC ---
Today's Communication/Plan
-
comfort care
Assessment / Plan
Assessment / Plan
68-year-old female who is essentially bedbound due to multiple sclerosis with chronic baclofen, chronic prednisone therapy with suprapubic catheter for neurogenic bladder, previous history of septic shock secondary to obstructive uropathy in July
to August 2023 presented to the ER with lethargy, flank pain and fever.
Gen: NAD, NCAT, appears chronically ill
CV: continues to remain RRR, +S1/S2, no m/r/g.
Resp: remains CTAB, no rales, wheezes, or rhonchi.
Abd: remains +BS, soft, NT, ND
Skin: No rashes. ecchymoses on arms, boots on feet
04/23/24 12:55 Blood/Venous Blood Culture - Final
No Growth - Final Report
04/23/24 12:26 Blood/Venous Blood Culture - Final
No Growth - Final Report
04/24/24 13:58 Kidney - Right Wound Culture - Final
Enterococcus faecalis
Proteus mirabilis
S aureus-Methicillin Sensitive
04/24/24 13:58 Kidney - Right Gram Stain - Final
04/19/24 11:23 Blood/Venous Blood Culture - Final
Proteus mirabilis
04/19/24 11:23 Blood/Venous Gram Stain - Final
04/21/24 05:27 Blood/Venous Blood Culture - Final
No Growth - Final Report
04/19/24 11:57 Urine Urine Culture - Final
Proteus mirabilis
Enterococcus faecalis
04/19/24 11:23 Blood/Venous Blood Culture - Final
Proteus mirabilis
04/19/24 11:23 Blood/Venous Gram Stain - Final
CT C/A/P 04/19/24:
CHEST:
1. Moderate right lower lobe and mild left lower lobe basilar subpleural airspace consolidations (probably atelectasis and less likely pneumonia).
2. Mild bilateral posterior pleural thickening.
3. Mild cardiomegaly.
4. Osteoporosis.
ABDOMEN and PELVIS:
1. 1.0 cm OBSTRUCTING CALCULUS in the RIGHT PROXIMAL URETER.
2. INNUMERABLE RIGHT INTRARENAL CALCULI.
3. Suspected ACUTE RIGHT PYELONEPHRITIS.
4. MULTIPLE FLUID COLLECTIONS in the RIGHT RETROPERITONEUM inferior to the right kidney (probably retroperitoneal abscesses given the history of fever and sepsis, although aseptic partially liquefied retroperitoneal hematomas are also possible).
5. Nonobstructing calculi in the left ureteropelvic junction.
6. Very severe diffuse hepatic steatosis and severe hepatomegaly.
7. Cholelithiasis.
8. Mild colonic diverticulosis.
9. Suprapubic urinary bladder catheter in place.
10. 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
11. Severe diffuse muscle atrophy.
12. SEVERE OSTEOPOROSIS with chronic vertebral body endplate insufficiency fractures in the lumbar spine.
CT A/P 04/22/24:
1. Interval placement of bilateral double-J ureteral stents, both in appropriate position. No evidence for hydronephrosis/obstructive uropathy. Again seen are multiple right-sided intrarenal calculi. Couple of small calculi within the midpole of the
left kidney.
2. Irregular/multiloculated low-attenuation fluid seen within the inferior right retroperitoneum, similar appearance compared to prior CT. The largest locule within the right lower quadrant measures approximately 4.7 x 1.9 cm in cross-section.
Limited evaluation for abscess without intravenous contrast, however no locules of gas identified within these collections or significant enlargement compared to the prior CT.
3. Trace right pleural effusion with adjacent consolidation/atelectasis within the right lower lobe. Pneumonia not excluded. Small amount of consolidation also noted within the medial left lower lobe.
CT brain 04/24/24: No acute intracranial abnormality identified.
CT chest:
1. Low lung volumes. Small amount of consolidation at the posterior right lung base with small air bronchograms. This could be related to atelectasis or pneumonia. There is a very small right pleural effusion. There is subsegmental atelectatic
change at the left lung base.
2. Severe hepatic fatty infiltration.
Severe sepsis due to Proteus mirabilis UTI/bacteremia and Enterococcus faecalis UTI due to obstructing R ureterolithiasis, causing acute R pyelonephritis, and R retroperitoneal abscesses vs forniceal rupture:
-received IVF bolus on admission
-s/p cysto/left ureteral stent/right retrograde and right ureteral stent/SBT exchange on 04/19/24
-s/p CT guided aspiration of RLQ/inferior right perinephric fluid collection yielding bloody/purulent fluid followed by drain placement with 10cc fluid removed on 04/24/24
-was initially on Vanco/Cefepime, then Vanco/Rocephin, now on IV Vanco/Ancef as per ID
-was on stress dose steroids, now off
-lactic acidosis has resolved
-Pertinent imaging and culture data above
-for definitive stone surgery this week as per urology (if pt transitions to hospice she will not have surgery)
-TESSA due to sepsis and obstructive uropathy is now resolved
Acute metabolic encephalopathy:
-possibly due to sepsis but also concerned hypercalcemia is playing a role
Paroxysmal atrial fibrillation:
-was on a Cardizem drip, now transitioned to PO Cardizem
-was seen by cardiology
Hypercalcemia:
-due to hyperparathyroidism
-Ca improved with IVFs
-Cinacalcet started
Other problems:
Hypokalemia: K via tube, Mg 2.2
Multiple sclerosis: chronic and severe, with neurogenic bladder and SPT
Mildly elevated LFTs: likely from fever/infection/medications
Morbid obesity due to excess calories
I personally met with the patient's Mis High. The patient's is now agreeable to hospice and changing code status to DNR. Plan is for comfort care today and discharged to hospice tomorrow.
DNR
Total time spent on today's encounter was 50 minutes which included time spent in counseling the patient/family regarding diagnosis and treatment plan as listed above, goals of care, and symptom management. Case was discussed with nursing staff,
specialists, and care coordinators/case management. All labs and imaging personally reviewed by me. Remainder the time spent in detailed review of previous records, lab data, imaging, and other medical provider documentation.
Anticipated Discharge: Within 24 hours
Subjective/Interval History
-
Date of Service: April 29, 2024
Objective Data
-
Labs:
Laboratory Results
04/28/24 04/29/24
23:39 06:42
WBC 16.8 H
Hgb 10.1 L 10.1 L
Hct 31.1 L 31.7 L
Plt Count 335
Sodium Pending
Potassium Pending
Chloride Pending
Carbon Dioxide Pending
BUN Pending
Creatinine Pending
Glucose Pending
Calcium Pending
Vital Signs:
Vital Signs
Temp Pulse Resp BP Pulse Ox
97.4 F 104 20 127/70 95
04/29/24 03:33 04/29/24 03:33 04/29/24 03:33 04/29/24 03:33 04/29/24 03:33
I&O
04/28/24 04/29/24 04/30/24
06:59 06:59 06:59
Intake Total 3675 / 3675 5 / 5
Output Total 1217 / 1217 650 / 650
Balance 2458 / 2458 -645 / -645
[2024-04-29 08:28] LABS: Vancomycin Random 13.1 ug/ml
[2024-04-29 08:36] LABS: Blood Urea Nitrogen 12 mg/dl (7-17); Calcium 10.1 mg/dl (8.4-10.2); Carbon Dioxide 25 mmol/L (22-30); Chloride 112 mmol/L (98-107); Estimated Creatinine Clearance 107 ml/min; Glucose 97 mg/dl (70-99); Potassium 3.6 mmol/L (3.5-5.1); Sodium 143 mmol/L (135-145); eGFR > 60.00
[2024-04-29 09:07] LABS: Glucose - Point of Care 120 mg/dl (70-99)
[2024-04-29] MEDS: CELEXA 10 MG TUBE (09:24)
[2024-04-29] MEDS: NSS (PRESERVATIVE FREE) 10 ML IV (09:24)
[2024-04-29] MEDS: CARDIZEM 30 MG TUBE (09:24)
[2024-04-29] MEDS: PROTONIX IV 40 MG IV (09:24)
[2024-04-29] MEDS: DELTASONE 10 MG TUBE (09:24)
[2024-04-29] MEDS: LIORESAL 5 MG TUBE (09:25)
[2024-04-29] MEDS: DESENEX/MITRAZOL/ZEASORB 1 APPLIC TOPICAL (09:26)
[2024-04-29 09:51] LABS: Intact PTH 78.4 pg/ml (13.6-85.8)
--- NOTE | 2024-04-29 10:32 | HOSPNOTE ---
Spoke with spouse about hospice care. The spouse is in agreement to make patient a DNR and agrees to hospice services. The plan is to remove the NG tube and have comfort medications ordered and plan to go home tomorrow on hospice services with [facility]. Will see patient tomorrow to determine if patient is able to go home. OOH DNR will be needed on chart and transport will need to be arranged. Will follow up tomorrow.
--- NOTE | 2024-04-29 11:15 | CHAP ---
Addendum entered by Merle Hardin 04/29/24 14:53:
Monsignor Valerio arrived and provided Sacrament of the Sick/Last Rites for Ms. Bañuelos.
Addendum entered by Merle Hardin 04/29/24 11:24:
Monsignor Valerio returned my text: he's involved in a now but will come as soon as he can.
Original Note:
Zig Zag Stitcher request relayed to Monsignor Valerio, Saturday on-call as Amber's sister requested.
--- NOTE | 2024-04-29 14:04 | CM ---
CM reviewed pt with Hospice
Spouse has agreed to DNR and comfort measures
Potential plan for home with hospice tomorrow
Plan to follow up tomorrow
Discharge Disposition- comfort vs home with hospice
[2024-04-29 16:53] LABS: Vitamin D 1,25 Dihydroxy 27.1 pg/mL (19.9-79.3)
[2024-04-29 19:54] VITALS: BP 150/85
[2024-04-29] MEDS: MORPHINE SULFATE 2 MG IV (22:07)
[2024-04-30 07:50] VITALS: BP 134/79
--- NOTE | 2024-04-30 07:50 | W.PN.HOSP.TC ---
Today's Communication/Plan
-
d/c to hospice
Assessment / Plan
Assessment / Plan
68-year-old female who is essentially bedbound due to multiple sclerosis with chronic baclofen, chronic prednisone therapy with suprapubic catheter for neurogenic bladder, previous history of septic shock secondary to obstructive uropathy in July
to August 2023 presented to the ER with lethargy, flank pain and fever.
Gen: NAD, awake and alert, NCAT, appears chronically ill
CV: RRR, +S1/S2, no m/r/g.
Resp: CTAB anteriorly, no rales, wheezes, or rhonchi.
Neuro: CN2-12 intact
Skin: No rashes. ecchymoses on arms, boots on feet
04/23/24 12:55 Blood/Venous Blood Culture - Final
No Growth - Final Report
04/23/24 12:26 Blood/Venous Blood Culture - Final
No Growth - Final Report
04/24/24 13:58 Kidney - Right Wound Culture - Final
Enterococcus faecalis
Proteus mirabilis
S aureus-Methicillin Sensitive
04/24/24 13:58 Kidney - Right Gram Stain - Final
04/19/24 11:23 Blood/Venous Blood Culture - Final
Proteus mirabilis
04/19/24 11:23 Blood/Venous Gram Stain - Final
04/21/24 05:27 Blood/Venous Blood Culture - Final
No Growth - Final Report
04/19/24 11:57 Urine Urine Culture - Final
Proteus mirabilis
Enterococcus faecalis
04/19/24 11:23 Blood/Venous Blood Culture - Final
Proteus mirabilis
04/19/24 11:23 Blood/Venous Gram Stain - Final
CT C/A/P 04/19/24:
CHEST:
1. Moderate right lower lobe and mild left lower lobe basilar subpleural airspace consolidations (probably atelectasis and less likely pneumonia).
2. Mild bilateral posterior pleural thickening.
3. Mild cardiomegaly.
4. Osteoporosis.
ABDOMEN and PELVIS:
1. 1.0 cm OBSTRUCTING CALCULUS in the RIGHT PROXIMAL URETER.
2. INNUMERABLE RIGHT INTRARENAL CALCULI.
3. Suspected ACUTE RIGHT PYELONEPHRITIS.
4. MULTIPLE FLUID COLLECTIONS in the RIGHT RETROPERITONEUM inferior to the right kidney (probably retroperitoneal abscesses given the history of fever and sepsis, although aseptic partially liquefied retroperitoneal hematomas are also possible).
5. Nonobstructing calculi in the left ureteropelvic junction.
6. Very severe diffuse hepatic steatosis and severe hepatomegaly.
7. Cholelithiasis.
8. Mild colonic diverticulosis.
9. Suprapubic urinary bladder catheter in place.
10. 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
11. Severe diffuse muscle atrophy.
12. SEVERE OSTEOPOROSIS with chronic vertebral body endplate insufficiency fractures in the lumbar spine.
CT A/P 04/22/24:
1. Interval placement of bilateral double-J ureteral stents, both in appropriate position. No evidence for hydronephrosis/obstructive uropathy. Again seen are multiple right-sided intrarenal calculi. Couple of small calculi within the midpole of the
left kidney.
2. Irregular/multiloculated low-attenuation fluid seen within the inferior right retroperitoneum, similar appearance compared to prior CT. The largest locule within the right lower quadrant measures approximately 4.7 x 1.9 cm in cross-section.
Limited evaluation for abscess without intravenous contrast, however no locules of gas identified within these collections or significant enlargement compared to the prior CT.
3. Trace right pleural effusion with adjacent consolidation/atelectasis within the right lower lobe. Pneumonia not excluded. Small amount of consolidation also noted within the medial left lower lobe.
CT brain 04/24/24: No acute intracranial abnormality identified.
CT chest:
1. Low lung volumes. Small amount of consolidation at the posterior right lung base with small air bronchograms. This could be related to atelectasis or pneumonia. There is a very small right pleural effusion. There is subsegmental atelectatic
change at the left lung base.
2. Severe hepatic fatty infiltration.
Pt now on comfort care with plan to discharge to hospice today.
A/P from 04/29/24:
Severe sepsis due to Proteus mirabilis UTI/bacteremia and Enterococcus faecalis UTI due to obstructing R ureterolithiasis, causing acute R pyelonephritis, and R retroperitoneal abscesses vs forniceal rupture:
-received IVF bolus on admission
-s/p cysto/left ureteral stent/right retrograde and right ureteral stent/SBT exchange on 04/19/24
-s/p CT guided aspiration of RLQ/inferior right perinephric fluid collection yielding bloody/purulent fluid followed by drain placement with 10cc fluid removed on 04/24/24
-was initially on Vanco/Cefepime, then Vanco/Rocephin, now on IV Vanco/Ancef as per ID
-was on stress dose steroids, now off
-lactic acidosis has resolved
-Pertinent imaging and culture data above
-for definitive stone surgery this week as per urology (if pt transitions to hospice she will not have surgery)
-TESSA due to sepsis and obstructive uropathy is now resolved
Acute metabolic encephalopathy:
-possibly due to sepsis but also concerned hypercalcemia is playing a role
Paroxysmal atrial fibrillation:
-was on a Cardizem drip, now transitioned to PO Cardizem
-was seen by cardiology
Hypercalcemia:
-due to hyperparathyroidism
-Ca improved with IVFs
-Cinacalcet started
Other problems:
Hypokalemia: K via tube, Mg 2.2
Multiple sclerosis: chronic and severe, with neurogenic bladder and SPT
Mildly elevated LFTs: likely from fever/infection/medications
Morbid obesity due to excess calories
DNR
Total time spent on d/c = 35 min. This included today's physical exam, progress note, review of laboratory and diagnostic data, preparation of discharge documents and prescriptions, and discussions about the pt's hospital course and discharge plan
with the patient and other medical services manager involved in the patient's care.
Anticipated Discharge: Today
Subjective/Interval History
-
Date of Service: April 30, 2024
Denies CP/SOB.
Objective Data
-
Vital Signs:
Vital Signs
Temp Pulse Resp BP Pulse Ox
98.0 F 97 16 150/85 93
04/29/24 19:54 04/29/24 19:54 04/29/24 19:54 04/29/24 19:54 04/29/24 19:54
I&O
04/29/24 04/30/24 05/01/24
06:59 06:59 06:59
Intake Total 5 / 5 0 / 0
Output Total 650 / 650 1200 / 1200
Balance -645 / -645 -1200 / -1200
--- NOTE | 2024-04-30 12:21 | CM ---
met with patient and her at bedside.patient is going home on home hospice with the [facility]. signed imm letter.ambulance transport scheduled for 1:30pm.
--- NOTE | 2024-04-30 13:09 | W.DCSUMMARY ---
Discharge Summary
Discharge Data
Date of Admission: 04/19/24
Date of Discharge: 04/30/24
-
Pending Results: No
Hospital Course
Primary diagnoses:
Severe sepsis due to Proteus mirabilis urinary tract infection/bacteremia and Enterococcus faecalis urinary tract infect due to obstructing right ureterolithiasis, causing acute right pyelonephritis, and right retroperitoneal abscesses vs forniceal
rupture, s/p cysto/left ureteral stent/right retrograde and right ureteral stent/super pubic tube exchange on 04/19/24, s/p CT guided aspiration of right lower quadrant/inferior right perinephric fluid collection yielding bloody/purulent fluid
followed by drain placement with 10cc fluid removed on 04/24/24
Acute metabolic encephalopathy
Acute kidney injury due to sepsis and obstructive uropathy
Secondary diagnoses:
Lactic acidosis
Paroxysmal atrial fibrillation
Hypercalcemia due to hyperparathyroidism
Hypokalemia
Multiple sclerosis
Neurogenic bladder
Mildly elevated liver function test
Morbid obesity due to excess calories
Consultants:
Infectious disease
Neurology
Cardiology
Critical care medicine
Imaging:
CT C/A/P 04/19/24:
CHEST:
1. Moderate right lower lobe and mild left lower lobe basilar subpleural airspace consolidations (probably atelectasis and less likely pneumonia).
2. Mild bilateral posterior pleural thickening.
3. Mild cardiomegaly.
4. Osteoporosis.
ABDOMEN and PELVIS:
1. 1.0 cm OBSTRUCTING CALCULUS in the RIGHT PROXIMAL URETER.
2. INNUMERABLE RIGHT INTRARENAL CALCULI.
3. Suspected ACUTE RIGHT PYELONEPHRITIS.
4. MULTIPLE FLUID COLLECTIONS in the RIGHT RETROPERITONEUM inferior to the right kidney (probably retroperitoneal abscesses given the history of fever and sepsis, although aseptic partially liquefied retroperitoneal hematomas are also possible).
5. Nonobstructing calculi in the left ureteropelvic junction.
6. Very severe diffuse hepatic steatosis and severe hepatomegaly.
7. Cholelithiasis.
8. Mild colonic diverticulosis.
9. Suprapubic urinary bladder catheter in place.
10. 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
11. Severe diffuse muscle atrophy.
12. SEVERE OSTEOPOROSIS with chronic vertebral body endplate insufficiency fractures in the lumbar spine.
CT A/P 04/22/24:
1. Interval placement of bilateral double-J ureteral stents, both in appropriate position. No evidence for hydronephrosis/obstructive uropathy. Again seen are multiple right-sided intrarenal calculi. Couple of small calculi within the midpole of the
left kidney.
2. Irregular/multiloculated low-attenuation fluid seen within the inferior right retroperitoneum, similar appearance compared to prior CT. The largest locule within the right lower quadrant measures approximately 4.7 x 1.9 cm in cross-section.
Limited evaluation for abscess without intravenous contrast, however no locules of gas identified within these collections or significant enlargement compared to the prior CT.
3. Trace right pleural effusion with adjacent consolidation/atelectasis within the right lower lobe. Pneumonia not excluded. Small amount of consolidation also noted within the medial left lower lobe.
CT brain 04/24/24: No acute intracranial abnormality identified.
CT chest:
1. Low lung volumes. Small amount of consolidation at the posterior right lung base with small air bronchograms. This could be related to atelectasis or pneumonia. There is a very small right pleural effusion. There is subsegmental atelectatic
change at the left lung base.
2. Severe hepatic fatty infiltration.
Hospital course: 68-year-old female who initially presented with chief complaint of fever and lethargy as outlined in HPI on admission. The patient was found to have severe sepsis. Ultimately it was discovered to be due to Proteus mirabilis
UTI/bacteremia and Enterococcus faecalis UTI due to obstructing R ureterolithiasis, causing acute R pyelonephritis, and R retroperitoneal abscesses vs forniceal rupture. All imaging above. The patient received aggressive IV fluids. She underwent
cysto/left ureteral stent/right retrograde and right ureteral stent/SBT exchange on 04/19/[address] guided aspiration of RLQ/inferior right perinephric fluid collection yielding bloody/purulent fluid followed by drain placement with 10cc fluid
removed on 04/24/24. Patient was treated with broad-spectrum antibiotics. She also was on stress dose steroids which were weaned off. Her lactic acidosis resolved. The patient continued to have acute metabolic encephalopathy. Due to her
overwhelming burden of pathology, most notably her advanced MS, morbid obesity, acute sepsis due to Proteus bacteremia and Enterococcus faecalis UTI due to obstructing right ureterolithiasis with right retroperitoneal abscess status post stent
ureteral placements status post CT-guided aspiration of right lower quadrant/inferior right perinephric fluid collection, the patient's decided to transition the patient to hospice. Patient is being discharged to home hospice at this time.
Discharge Plan
-
Patient Disposition: Home with Hospice
Discharge Diagnosis/Procedures: Severe sepsis due to Proteus mirabilis urinary tract infection/bacteremia and Enterococcus faecalis urinary tract infect due to obstructing right ureterolithiasis, causing acute right pyelonephritis, and right
retroperitoneal abscesses vs forniceal rupture,
-s/p cysto/left ureteral stent/right retrograde and right ureteral stent/super pubic tube exchange on 04/19/24
-s/p CT guided aspiration of right lower quadrant/inferior right perinephric fluid collection yielding bloody/purulent fluid followed by drain placement with 10cc fluid removed on 04/24/24
acute metabolic encephalopathy
Condition: Fair
Diet: Other diet
Additional Diets: pleasure feeds on hospice
Activity: Other activity
Additional Activity: bedrest
Driving Restrictions: No driving
Other Services: Hospice
Referrals:
Caden Giles DO [Family Provider] - in less than 1 week
Prescriptions:
Discontinued
citalopram 10 MG tablet
10 mg PO DAILY
tramadol 50 MG tablet
50 mg PO DAILYPRN PRN (Reason: Severe Pain)
potassium chloride [Klor-Con M20] 20 MEQ tablet,ER particles/crystals
20 meq PO BID
baclofen 10 MG tablet
5 mg PO TID
cranberry 450 mg Tablet
450 mg PO DAILY Qty: 0
furosemide 40 MG tablet
40 mg PO DAILY
thiamine HCl (vitamin B1) 100 MG tablet
100 mg PO DAILY
cyclobenzaprine 10 mg tablet
10 mg PO DAILYPRN PRN (Reason: MUSCLE SPASM)
methocarbamol 500 mg tablet
500 mg PO DAILYPRN PRN (Reason: muscle spasm, refractory to flexeril)
prednisone 10 mg tablet
10 mg PO DAILY
cholecalciferol (vitamin D3) [Vitamin D3] 50 mcg (2,000 unit) Tablet
50 mcg PO DAILY
diltiazem HCl [Cartia XT] 120 mg Capsule,Extended Release 24hr
120 mg PO DAILY
Zinc Oxide Diaper Cream 1-10 % Cream
1 applic TOPICAL DAILYPRN PRN (Reason: excoriation)
calcium carbonate [Calcium 600] 600 mg calcium (1,500 mg) Tablet
600 mg PO DAILY
aspirin 81 mg tablet,chewable
81 mg PO QPM
Discharge Orders:
Discharge Patient (As Directed); Ordered 04/30/24
Ordered By: Jesus Jones
Discharge Date and Time
Print Language: SLOVENIAN
--- NOTE | 2024-04-30 14:10 | PN.IRAD.UPD ---
Update Note - IRAD
- -
Cleaned right sided abd drain with chloraprep and removed bedside. Site dressed with a primapore.
Deshawn Lobo RT(R)()
== END 2024-04-30 14:20 | disposition hospice, home (50) | DRG 853 ==
LOC: 2 NORTH 16:23
PROVIDERS: Internal Medicine; Nurse Practitioner Family; Nurse Practitioner Gerontology; Radiology Diagnostic Radiology; Radiology Vascular & Interventional Radiology; Student in an Organized Health Care Education/Training Program; ADMITTING PHYSICIAN Internal Medicine; ATTENDING PHYSICIAN Internal Medicine; CONSULT PHYSICIAN Internal Medicine Cardiovascular Disease; CONSULT PHYSICIAN Specialist; EMERGENCY PHYSICIAN Emergency Medicine; FAMILY PHYSICIAN Family Medicine; OTHER PHYSICIAN Internal Medicine Infectious Disease; OTHER PHYSICIAN Internal Medicine Pulmonary Disease
PROC: 0T788DZ Dilation of Bilateral Ureters with Intraluminal Device, Via Natural or Artificial Opening Endoscopic (ICD-10-PCS; 2024-04-19)
PROC: 0T2BX0Z Change Drainage Device in Bladder, External Approach (ICD-10-PCS; 2024-04-19)
PROC: BT1D1ZZ Fluoroscopy of Right Kidney, Ureter and Bladder using Low Osmolar Contrast (ICD-10-PCS; 2024-04-19)
PROC: 0DH673Z Insertion of Infusion Device into Stomach, Via Natural or Artificial Opening (ICD-10-PCS; 2024-04-20)
PROC: 0W9J30Z Drainage of Pelvic Cavity with Drainage Device, Percutaneous Approach (ICD-10-PCS; 2024-04-24)
DX: A41.59 Other Gram-negative sepsis (principal); G93.41 Metabolic encephalopathy; N15.1 Renal and perinephric abscess; R65.21 Severe sepsis with septic shock; N20.2 Calculus of kidney with calculus of ureter; N10 Acute pyelonephritis; N17.9 Acute kidney failure, unspecified; J98.11 Atelectasis; T80.818A Extravasation of other vesicant agent, initial encounter; R39.0 Extravasation of urine; E87.20 Acidosis, unspecified; M80.08XA Age-related osteoporosis with current pathological fracture, vertebra(e), initial encounter for fracture; G35 Multiple sclerosis; N13.9 Obstructive and reflux uropathy, unspecified; N31.9 Neuromuscular dysfunction of bladder, unspecified; E66.01 Morbid (severe) obesity due to excess calories; B95.2 Enterococcus as the cause of diseases classified elsewhere; I48.0 Paroxysmal atrial fibrillation; E87.6 Hypokalemia; R65.20 Severe sepsis without septic shock; E21.3 Hyperparathyroidism, unspecified; N36.8 Other specified disorders of urethra; R09.02 Hypoxemia; R79.89 Other specified abnormal findings of blood chemistry; B96.4 Proteus (mirabilis) (morganii) as the cause of diseases classified elsewhere; E86.0 Dehydration; F41.9 Anxiety disorder, unspecified; F32.A Depression, unspecified; Z87.440 Personal history of urinary (tract) infections; Z86.718 Personal history of other venous thrombosis and embolism; Z87.442 Personal history of urinary calculi; Z79.52 Long term (current) use of systemic steroids; Z79.82 Long term (current) use of aspirin; Z74.01 Bed confinement status; Z88.0 Allergy status to penicillin; Z91.041 Radiographic dye allergy status; Z93.59 Other cystostomy status; Z68.39 Body mass index [BMI] 39.0-39.9, adult
CPT/HCPCS: 36600; 49406; 70450; 71045; 71250; 74018; 74176; 74420; 76000; 80048; 80053; 80202; 81003; 81015; 82652; 82805; 82962; 83036; 83605; 83735; 83970; 84100; 85014; 85018; 85025; 85027; 85610; 85730; 87040; 87070; 87071; 87077; 87086; 87147; 87149; 87186; 87205; 92526; 92610; 93005; 96361; 96365; 96366; 96374; 97129; 97167; 97535; 99291; C1758; C1894; C2617